=== PATIENT | female | born 1945 | race Caucasian/White ===

== ENCOUNTER 2020-05-19 10:35 | Outpatient (REF) | payer MEDICARE, SELFPAY ==
--- NOTE | 2020-05-19 10:39 | XR_ITS ---
EXAMINATION: XR SHOULDER, LEFT CLINICAL INFORMATION: Fracture greater tuberosity. Follow-up. COMPARISON: Radiographs left shoulder 04/20/2020, 04/13/2020,, 04/07/2020. TECHNIQUE: Left shoulder is imaged in 3 views. FINDINGS: The orthopedic screws are intact. Posttraumatic changes and bony fragments are stable from prior exams. There is no interval new fracture or destructive process. No change in alignment. The acromioclavicular alignment is normal. XR/XR shoulder LT min 2V IMPRESSION: Posttraumatic and postsurgical changes similar to prior exam 04/20/2020. No change in alignment. Hardware intact.
== END 2020-05-19 10:36 | disposition home or self-care (01) ==
LOC: HO.XRAY 10:35
PROVIDERS: PCP Internal Medicine; Referring Provider Internal Medicine; Visit Provider Orthopaedic Surgery
DX: S42.252A Displaced fracture of greater tuberosity of left humerus, initial encounter for closed fracture (principal); S44.32XA Injury of axillary nerve, left arm, initial encounter
CPT/HCPCS: 73030; 99212

== ENCOUNTER 2020-06-07 09:55 | Outpatient (REF) | payer MEDICARE, SELFPAY ==
--- NOTE | 2020-06-07 10:00 | EMG_ITS ---
HISTORY OF PRESENT ILLNESS: This is a 74-year-old woman who fell around April 01, landing on her left shoulder with a fracture of the left shoulder and was operated on April 02. She is now unable to abduct her left shoulder and was referred here for evaluation of any possible nerve injury. She is currently in physical therapy. No medications. PHYSICAL EXAMINATION: On examination, she has weakness of shoulder abduction beyond 10 degrees, but no obvious atrophy. Her supra and infraspinatus appear to be intact. Biceps, triceps, and distal strength is normal. 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 NERVE CONDUCTION EMG STUDY: Normal nerve conduction study of the left upper extremity with no evidence of carpal tunnel syndrome or peripheral nerve entrapment. EMG of the left C5-T1 innervated muscles shows mild active denervation in the deltoid and evidence of reinnervation consistent with a recent injury to the left axillary nerve with evidence of significant reinnervation. MD LINDA Pantoja/EMILE / [id number]
== END 2020-06-07 09:56 | disposition home or self-care (01) ==
LOC: HO.NEURO 09:55
PROVIDERS: PCP Internal Medicine; Visit Provider Orthopaedic Surgery
DX: S44.30XA Injury of axillary nerve, unspecified arm, initial encounter (principal); M79.602 Pain in left arm; R20.0 Anesthesia of skin
CPT/HCPCS: 95860; 95886; 95910

== ENCOUNTER → 2020-06-12 08:49 | Outpatient (BNVA) | payer MEDICARE, SELFPAY | PROVIDERS: Visit Provider Orthopaedic Surgery | DX: S44.3 Injury of axillary nerve (principal); S42.251D Displaced fracture of greater tuberosity of right humerus, subsequent encounter for fracture with routine healing | CPT/HCPCS: 99202 ==

== ENCOUNTER 2020-07-10 10:44 | Outpatient (REF) | payer MEDICARE, SELFPAY ==
--- NOTE | 2020-07-10 11:35 | XR_ITS ---
EXAMINATION: XR SHOULDER, LEFT CLINICAL INFORMATION: Shoulder pain COMPARISON: 05/19/2020 TECHNIQUE: Two views of the left shoulder. FINDINGS: Orthopedic screws are intact with similar positioning. Posttraumatic changes and bony fragments are similar in appearance as compared to previous. No new acute fractures are seen. Normal alignment of the humeral head with the glenoid. AC joint is intact. XR/XR shoulder LT min 2V IMPRESSION: Similar appearance of posttraumatic/postsurgical changes. No new acute findings.
== END 2020-07-10 10:45 | disposition home or self-care (01) ==
LOC: HO.HOSX 10:44
PROVIDERS: Visit Provider Orthopaedic Surgery
DX: S42.253A Displaced fracture of greater tuberosity of unspecified humerus, initial encounter for closed fracture (principal); S44.30XA Injury of axillary nerve, unspecified arm, initial encounter
CPT/HCPCS: 73030; 99212

== ENCOUNTER → 2020-09-28 12:33 | Outpatient (BNVA) | payer MEDICARE, SELFPAY | PROVIDERS: Visit Provider Orthopaedic Surgery | DX: S44.30XA Injury of axillary nerve, unspecified arm, initial encounter (principal); S42.253A Displaced fracture of greater tuberosity of unspecified humerus, initial encounter for closed fracture | CPT/HCPCS: 99212 ==

== ENCOUNTER 2020-11-29 12:16 | Outpatient (REF) | payer MEDICARE, SELFPAY ==
[2020-11-29 13:57] LABS: MANUAL DIFF FLAG NO
[2020-11-29 14:07] LABS: Basophils Percent Auto 0.8 % (0-2); Eosinophils Absolute Auto 0.4 X10*3/uL (0.0-0.4); Eosinophils Percent Auto 7.4 % (0-4); Hematocrit 42.9 % (37-47); Hemoglobin 13.4 g/dl (12.0-16.0); Imm Gran Abs Auto 0.02 X10*3/uL (0.00-0.03); Imm Gran Pct Auto 0.4 % (0.0-0.4); Lymphocytes Absolute Auto 1.7 X10*3/uL (1.2-4.9); Mean Corpuscular HGB Conc 31.2 g/dl (31.0-35.0); Mean Corpuscular Hemoglobin 30.3 pg (27.0-33.0); Mean Corpuscular Volume 97.1 fL (80-98); Mean Platelet Volume 9.7 fL (9.4-12.3); Monocytes Absolute Auto 0.7 X10*3/uL (0.1-1.2); Monocytes Percent Auto 13.6 % (2-11); Neutrophils Absolute Auto 2.1 X10*3/uL (2.0-8.3); Neutrophils Percent Auto 43.8 % (45-73); Platelet Count 274 X10*3/uL (160-400); Red Blood Count 4.42 X10*6/uL (4.20-5.50); White Blood Count 4.9 X10*3/uL (4.8-10.8)
[2020-11-29 14:25] LABS: Alanine Aminotransferase 30 U/L (0-31); Albumin Level 4.5 g/dL (3.5-5.0); Alkaline Phosphatase 82 U/L (39-117); Anion Gap 13 (12-20); Aspartate Amino Transferase 33 U/L (5-31); Bilirubin Total 0.6 mg/dL (0.0-1.0); Blood Urea Nitrogen 20 mg/dL (9-16); Calcium 9.7 mg/dL (8.4-10.2); Carbon Dioxide 28 mmol/L (22-29); Chloride 102 mmol/L (96-108); Estimated Glomerular Filt Rate > 60; Glucose Random 99 mg/dL (60-115); Potassium 4.3 mmol/L (3.3-5.1); Sodium 139 mmol/L (135-145); Total Protein 7.3 g/dL (6.5-8.0)
[2020-11-29 14:47] LABS: TSH reflex Free T4 1.72 uIU/mL (0.32-4.0)
== END 2020-11-29 12:17 | disposition home or self-care (01) ==
LOC: HO.HMGCLDS 12:16
PROVIDERS: PCP Internal Medicine; Visit Provider Internal Medicine
DX: R10.13 Epigastric pain (principal); F41.1 Generalized anxiety disorder; J45.909 Unspecified asthma, uncomplicated; I10 Essential (primary) hypertension
CPT/HCPCS: 36415; 80053; 84443; 85025

== ENCOUNTER 2020-11-30 10:20 | Outpatient (REF) | payer MEDICARE, SELFPAY ==
--- NOTE | 2020-11-30 10:22 | EMG_ITS ---
Left median and ulnar motor and sensory studies were performed. Left radial sensory study was performed. Median and lateral antecubital brachial studies were performed and needle examination was performed on paraspinal and some limb muscles. IMPRESSION: 1. Chronic left axillary neuropathy. 2. Left long thoracic neuropathy. 3. Mild left median neuropathy across the carpal tunnel. 4. Mild left ulnar neuropathy across the cubital tunnel. 5. No evidence of cervical radiculopathy or plexopathy. MD CHARLY Estrada/EMILE / [id number]
== END 2020-11-30 10:21 | disposition home or self-care (01) ==
LOC: HO.NEURO 10:20
PROVIDERS: PCP Internal Medicine; Visit Provider Orthopaedic Surgery
DX: S44.32XA Injury of axillary nerve, left arm, initial encounter (principal); M79.602 Pain in left arm; X58.XXXA Exposure to other specified factors, initial encounter; Y93.9 Activity, unspecified; Y92.9 Unspecified place or not applicable; Y99.9 Unspecified external cause status
CPT/HCPCS: 95886; 95910

== ENCOUNTER 2020-12-07 12:22 | Outpatient (REF) | payer MEDICARE, SELFPAY ==
--- NOTE | ~2020-12-07 | XR_ITS ---
EXAMINATION: XR SHOULDER, LEFT CLINICAL INFORMATION: Left shoulder pain. COMPARISON: Left shoulder 07/10/2020 TECHNIQUE: AP external rotation, Grashey, scapular Y, and axillary views of the left shoulder. FINDINGS: There are 2 orthopedic screws in the left humeral head with posttraumatic/postsurgical changes lateral humeral head. The greater tuberosity is displaced superiorly. There are small bony fragments seen lateral to the humeral head. The soft tissues are normal. The AC joint is maintained intact with mild degenerative changes. XR/XR shoulder LT min 2V IMPRESSION: Stable posttraumatic/postsurgical changes left humeral head with 2 orthopedic screws within the humeral head. The greater tuberosity is displaced superiorly on axillary view. No major change compared to 07/10/2020.
== END 2020-12-07 12:23 | disposition home or self-care (01) ==
LOC: HO.HOSX 12:22
PROVIDERS: Visit Provider Orthopaedic Surgery
DX: S44.3 Injury of axillary nerve (principal); S42.252D Displaced fracture of greater tuberosity of left humerus, subsequent encounter for fracture with routine healing
CPT/HCPCS: 73030; 99212

== ENCOUNTER 2021-01-22 13:00 | Outpatient (RCR) | payer MEDICARE, SELFPAY ==
--- NOTE | 2020-06-09 15:04 | MHC.PT.PR ---
[facility] [place] Office [place] Office [place] Office [address] Liya Morfin [address] [phone] F: [phone] F: [phone] F: [phone] F: [phone] Physical Therapy Progress Note Diagnosis: Displaced fracture of greater tuberosity of unspecified humerus encounter for closed fracture. Displaced fracture of greater tuberosity of unspecified humerus initial encounter. Date of script 05/23/[address] Delgado. (No further instructions/restrictions/directions noted on script this date.) Date of Surgery: 04/02/2020 Date of Evaluation: 06/02/20 Treatments to Date: 3 Cancellations to Date: 0 No Shows to Date: 0 Subjective: Nerve conduction test was done 06/07 and she believes it showed nerve damage. Pain Score: 4 Pain Location: L shoulder Objective Measures: 10 weeks post-op. AA shoulder flexion supine: 94 AA shoulder ER: 8 Assessment: She has been performing HEP everyday, which is seen with improved FE AAROM. Increased tenderness L infraspinatus and deltoid. NOted improved postural awareness with less 'sling' position in resting and neutral rotation. She has a follow-up with Dr. Delgado Friday morning. PT Plan: Continue with PT Frequency and Duration: The patient will be seen 2x/week for 5 more weeks Treatment Plan: Therapeutic Exercise Dynamic Therapeutic Activities Neuromuscular Re-ed Manual Therapies Home Exercise Program Patient Education Hot or Cold Pack Reviewed/ Agreed with Student Documentation: N/A Therapist: Thank you once again for your referral.
--- NOTE | 2020-07-03 14:40 | MHC.PT.PR ---
[facility] [place] Office [place] Office [place] Office [address] Liya Morfin [address] [phone] F: [phone] F: [phone] F: [phone] F: [phone] Physical Therapy Progress Note Diagnosis: Displaced fracture of greater tuberosity of unspecified humerus encounter for closed fracture. Date of Surgery: 04/02/2020 Date of Evaluation: 06/02/20 Treatments to Date: 9 Cancellations to Date: 0 No Shows to Date: 0 Subjective: Still having lots of pain and it seems to crack/ click with certain movements. It's been hard to get comfortable and this pain does not change (deltoid and GH joint) Pain Score: 6 Pain Location: L shoulder Objective Measures: PROM: flexion 108, ER 18, Abduction 96, L UE Resisted tests: flexion/ER/Abd 2-/5, IR 2+/5 Assessment: She continues to have poor tolerance for AA/PROM today (second session in a row with increased pain and poor tolerance). Her PROM has plateaued and her PROM flexion is less than 3 sessions prior. Pt also reports more anxiety regarding clicking/pain in her shoulder. We discussed HEP and not pushing into pain and only performing ROM to tolerance at this time. Her ER strength is poor and she is unable to move through the motion actively. Initiated gentle manual resistance to progress ER/flexion AROM. We will continue with PT 2x/week for 4 more weeks to progress A/AA/PROM and eventually initiate isotonic strengthening. Will call Dr. Delgado regarding patients increased pain and poor AROM progression; pt will also f/u. PT Plan: Continue with PT Frequency and Duration: The patient will be seen 2x/week for 4 more weeks Treatment Plan: Therapeutic Exercise Neuromuscular Re-ed Manual Therapies Home Exercise Program Patient Education Electrical Stimulation Hot or Cold Pack Reviewed/ Agreed with Student Documentation: N/A Therapist: Thank you once again for your referral.
--- NOTE | 2020-09-08 15:18 | MHC.PT.OD ---
[facility] [place] Office [place] Office [place] Office [address] Liya Morfin [address] [phone] F: [phone] F: [phone] F: [phone] F: [phone] Physical Therapy Daily Note Diagnosis: Displaced fracture of greater tuberosity of unspecified humerus encounter for closed fracture. Date of Surgery: 04/02/2020 Date of Evaluation: 06/02/20 Date of Treatment: 09/08/20 Treatments to Date: 20 Cancellations to Date: 1 No Shows to Date: 0 Precautions/ Contraindications:Greater Tuberosity humeral fx ORIF c some axillary nerve damage Subjective: This morning I started to feel something funny in my shoulder. It cracks. Pain Score and Location: 5 L shoulder Objective Flowsheet: Tests & Measures PROM R SHoulder: Flexion (145), ABD (115), ER (45). Standing active flexion 54, active ER lacks 5 degrees at 0* abd, active ER 35 at 20*abd, abd 45. Supine flexion 140 Resisted tests: IR 4/5, Flexion/ABD 3-/5 and ER 2-/5 Exercises stepper with UE/LE, seat 14 L1 x 8min 2x10: AA flexion in sitting c hands clasped - Active flexion in supine c HOB elevated to 30* x 10R -Active ER at 20*abd 3x10 -standing L UE ball circles PROM: flex, ER, and ABD to tolerance c pt in supine STM to lats, subscapularis and biceps in sidelying Modalities moreno valley tower: IFC to L shoulder (avoiding placement at posterior mid triceps due to decreased sensation there). Intensity increased to 13.0 Assessment: She demonstrates improved active external rotation but only when her shoulder is abducted >20*. When her arm is in neutral abduction however, she is unable to externally rotate beyond neutral. Assessed for 'clicking/cracking' that she described had started this morning. Was able to palpate something rolling with forward elevation but not consistently; question whether there is bicep tendon rolling out of bicipital groove and/or a pin or it could be some other source. It is not painful per the patient but 'makes me jump. Her ROM is the same and she continues to have limitations in strength. She has a f/u with Dr. Delgado to discuss further plan (TSA verse conservative management.) PT Plan: A/AA/PROM as tolerated all directions, isometircs Short Term Goals: 1. Pt will demonstrate AAROM/AROM L shoulder 110 degrees. 2. Pt will demonstrate AAROM/AROM L shoulder 140 degrees. 3. Pt will wean from use of sling when cleared by Dr. Delgado for use of ADLS/IADLs. 4. Strength L shoulder 3/5. Residential Goals: 1. Pt will demonstrate AROM L shoulder to 140 degrees (Await order from Dr. Delgado with clearance on ROM. 2. Pt will demonstrate good safety/insight with lifting/use of L shoulder. 3. Pt will demonstrate gross strength L shoulder 4/5. Electronically signed by: Iman Naik DPT
--- NOTE | 2021-01-22 14:23 | MHC.PT.DC ---
[facility] [place] Office [place] Office [place] Office [address] Liya Morfin [address] [phone] F: [phone] F: [phone] F: [phone] F: [phone] Physical Therapy Discharge Report Diagnosis: Displaced fracture of greater tuberosity of unspecified humerus encounter for closed fracture. Date of Surgery: 04/02/2020 Date of Evaluation: 06/02/20 Date of Discharge: 01/22/21 Treatments to Date: 32 Cancellations to Date: 1 No Shows to Date: 0 Discharge Status: Independent with HEP Recommend MD Follow-up Discharge Summary: Pt demonstrates good scapular activation without any evidence of winging. She has made gains in regards to supine AROM with flexion and ER, however there has been no change in AROM against gravity. Mild improvement in eccentric control of returning from ER position in supine. She has plateaued and we reviewed HEP for pt to continue with at home. She hopes she will be eligible for a TSA in the future. D/c at this time secondary to plateau of progress and I with HEP Electronically signed by: Iman Naik DPT Please sign and return to therapist. Thank you for your referral.
== END 2021-01-22 14:23 | disposition home or self-care (01) ==
LOC: HO.PTCHIC 13:00
PROVIDERS: PCP Internal Medicine; Visit Provider Orthopaedic Surgery
DX: S42.253A Displaced fracture of greater tuberosity of unspecified humerus, initial encounter for closed fracture (principal)
CPT/HCPCS: 97014; 97110; 97112; 97140; 97161; 97162; 97535

== ENCOUNTER → 2021-03-12 12:45 | Outpatient (BNVA) | payer MEDICARE, SELFPAY | PROVIDERS: Visit Provider Orthopaedic Surgery | DX: S44.30XA Injury of axillary nerve, unspecified arm, initial encounter (principal); S42.253A Displaced fracture of greater tuberosity of unspecified humerus, initial encounter for closed fracture; Z96.9 Presence of functional implant, unspecified | CPT/HCPCS: 99212 ==

== ENCOUNTER 2021-03-28 08:29 | Day surgery (SDC) | payer MEDICARE, SELFPAY ==
--- NOTE | 2021-03-27 12:22 | P.CONAN_ITS ---
Documented by User: Juanis Norris NP 03/27/21 12:23 HPI - Anesthesia Eval Consult details Narrative: 75yo F for Left Removal of Orthopedic Shoulder Hardware PMFSH Active Problems Active Problems: All Active Problems (Updated 03/12/21 @ 13:03 by Maciel Delgado MD) Retained orthopedic hardware (Acute) Menopause (Acute) Breast screening (Acute) Multiple allergies (Acute) Difficulty sleeping (Acute) HTN (hypertension) (Acute) Anxiety, generalized (Acute) Encounter for general adult medical examination with abnormal findings (Acute) Pain management (Acute) Dyspepsia (Acute) Asthma (Acute) Axillary nerve injury (Acute) Greater tuberosity of humerus fracture (Acute) Past Medical History Medical History Anxiety Asthma Axillary nerve injury Borderline high cholesterol Dyspepsia Eczema Greater tuberosity of humerus fracture HTN (hypertension) Insomnia Neuropathy Osteopenia Pain management Prediabetes Family History Family History Mother Dementia DDD (degenerative disc disease) Father No problems noted. Brother No problems noted. Sister No problems noted. Sister No problems noted. Sister No problems noted. Surgical History Surgical History H/O partial thyroidectomy History of back surgery History of bunionectomy of both great toes History of shoulder surgery History of tonsillectomy Social History Social History Housing: House Patient Tobacco Use Status: Former Tobacco user Quit Date: Tobacco use type: Cigarette Years Smoked: 25 Use of substances other than those prescribed or required for medical reasons: Yes Substance Use Frequency: Occasionally Are you DNR?: No Advance Directives: No Advance Directives Information Provided: No Current occupational status: retired 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 Meds Allergies Allergy/AdvReac Type Severity Reaction Status Date / Time No Known Allergies Allergy Mild N/A Verified 03/28/21 08:55 hay fever Allergy Unknown Unknown Uncoded 03/12/21 12:52 multiple environmental Allergy Unknown Unknown Uncoded 03/12/21 12:52 allergi Home Medications Medication Instructions Recorded Confirmed Last Taken Type albuterol sulfate 90 mcg/actuation 2 puff INHALATION Q6H PRN 05/18/20 02/28/21 Unknown History aerosol inhaler (ProAir HFA) cetirizine 10 mg capsule (Zyrtec) mg PO 05/18/20 02/28/21 Unknown History fluticasone propionate 110 1 puff INHALATION BID 05/18/20 02/28/21 03/28/21 07:30 History mcg/actuation HFA aerosol inhaler (Flovent HFA) multivitamin 1 tab PO DAILY 03/28/21 03/28/21 Unknown History Exam Exam Date and Time: March 27, 2021 1222 Pertinent Lab Results Pertinent Lab Results: Laboratory Tests 11/29/20 11/29/20 12:25 12:25 WBC 4.9 Hgb 13.4 Hct 42.9 Plt Count 274 Sodium 139 Potassium 4.3 Chloride 102 Carbon Dioxide 28 BUN 20 H Creatinine 0.82 Assessment and Plan Assessment Anesthesia Assessment: Chart Reviewed Documented by User: Lynnette Ko MD 03/28/21 11:12 COUNT INCLUDES THE [facility] Past Medical History Medical History Anxiety Asthma Axillary nerve injury Borderline high cholesterol Dyspepsia Eczema Greater tuberosity of humerus fracture HTN (hypertension) Insomnia Neuropathy Osteopenia Pain management Prediabetes Family History Family History Mother Dementia DDD (degenerative disc disease) Father No problems noted. Brother No problems noted. Sister No problems noted. Sister No problems noted. Sister No problems noted. Family history of problems with anesthesia: No Surgical History Surgical History H/O partial thyroidectomy History of back surgery History of bunionectomy of both great toes History of shoulder surgery History of tonsillectomy History of Problems with Anesthesia: No Social History Social History Housing: House Patient Tobacco Use Status: Former Tobacco user Quit Date: Tobacco use type: Cigarette Years Smoked: 25 Use of substances other than those prescribed or required for medical reasons: Yes Substance Use Frequency: Occasionally Are you DNR?: No Advance Directives: No Advance Directives Information Provided: No Current occupational status: retired 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 Meds Allergies Allergy/AdvReac Type Severity Reaction Status Date / Time No Known Allergies Allergy Mild N/A Verified 03/28/21 08:55 hay fever Allergy Unknown Unknown Uncoded 03/12/21 12:52 multiple environmental Allergy Unknown Unknown Uncoded 03/12/21 12:52 allergi Home Medications Medication Instructions Recorded Confirmed Last Taken Type albuterol sulfate 90 mcg/actuation 2 puff INHALATION Q6H PRN 05/18/20 02/28/21 Unknown History aerosol inhaler (ProAir HFA) cetirizine 10 mg capsule (Zyrtec) mg PO 05/18/20 02/28/21 Unknown History fluticasone propionate 110 1 puff INHALATION BID 05/18/20 02/28/21 03/28/21 07:30 History mcg/actuation HFA aerosol inhaler (Flovent HFA) multivitamin 1 tab PO DAILY 03/28/21 03/28/21 Unknown History Exam Airway Mallampati Class: II TM Dist: >3cm Neck ROM: Full Assessment and Plan Assessment Anesthesia Assessment: Anesthesia Plan Discussed Final Anesthetic Review Family History of Problems with Anesthesia: No History of Problems with Anesthesia: No NPO: Yes ASA Class: II Final Preanesthetic Review: No Changes in Pt Med Stat, Meds/Allgs Chart Reviewed, Consent Obtained/Reviewed and Anes Risks/Benef Reviewed Patient Risk: Low Procedure Risk: Low Assessment/Block/Sedation in SS: Assess/Block/Sedation-SS Anesthetic Plan Anesthetic Plan: GA Disposition: Standard PACU
[2021-03-28] VITALS (7 sets, daily range): BP systolic 116–147; BP diastolic 80–90; PULSE 64–77; RESP 16; TEMP 36.1; O2SAT 95–99; BMI 30.7
--- NOTE | ~2021-03-28 | FL_ITS ---
EXAMINATION: XR FLUOROSCOPY WITH IMAGES CLINICAL INFORMATION: Removal hardware left upper arm. COMPARISON: Radiographs left shoulder 12/07/2020, CT left shoulder 04/02/2020 TECHNIQUE: Fluoroscopy performed by Dr. Maciel Delgado. Fluoroscopy time: 0.2 minutes DAP: 0.0153 mGycm2 Images: 2 FINDINGS: There is old posttraumatic changes proximal humerus with 2 orthopedic screws. The final spot view shows removal of the screws with no retained metallic fragments. FL/FL guidance in OR IMPRESSION: Status post removal proximal left humeral orthopedic screws. No retained metallic fragments.
[2021-03-28] MEDS: Lactated Ringers 1,000 ML 100 ML IVCONT (09:27)
--- NOTE | 2021-03-28 12:33 | PM.OP ---
Brief Operative Note Date of Service: 03/28/21 Pre-op diagnosis: left shoulder retained orthopaedic hardware Procedure: Removal of hardware left shoulder Surgeon: Maciel Delgado MD Anesthesia: GETA and local Was an Customer Services Coordinator used for this Procedure?: Yes Customer Services Coordinator: Elham Mckeon Estimated blood loss (mL): 20 IV fluids (mL): 300 Pathology: none sent Condition: stable Disposition: PACU
--- NOTE | 2021-03-28 12:35 | W.PM.OPN ---
Operative Note Operative Note Date of Service: 03/28/21 Narrative: Procedure if detail. Bud was brought to the room and placed in the beach chair position. All bony prominences were well padded and she was prepped and draped in standard sterile fashion. A time out was called to identify proper site, proper procedure and proper patient. IV antibiotics were administered. I began by using flouroscopy to identify the 2 screws. I then hernandez a 2 cm incision over the prior incision about 1 cm distal to the acromion. Blunt dissection was taken down to the screws and one was removed with a screwdriver and the other was loose in soft tissue and loose bone of the greater tuberosity. This screw was gently removed with dissection of the surrounding fibrous tissue and removed. There was no evidence of nerve entrapment. I then irrigated, obtained my final radiograph and closed with Vicryl and cate. The patient was placed in a sterile dressing, extubated and brought to the recovery room in stable condition. There were no known complications.
== END 2021-03-28 13:45 | disposition home or self-care (01) ==
PROVIDERS: PCP Internal Medicine; Visit Provider Orthopaedic Surgery
PROC: (CPT 20680; principal; 2021-03-28 10:40)
DX: Z47.2 Encounter for removal of internal fixation device (principal); S44.3 Injury of axillary nerve; S42.253D Displaced fracture of greater tuberosity of unspecified humerus, subsequent encounter for fracture with routine healing; X58.XXXD Exposure to other specified factors, subsequent encounter
CPT/HCPCS: 20680; J0690; J1100; J1170; J2405; J3010

== ENCOUNTER → 2021-04-05 12:11 | Outpatient (BNVA) | payer MEDICARE, SELFPAY | PROVIDERS: PCP Internal Medicine; Visit Provider Orthopaedic Surgery | DX: S44.3 Injury of axillary nerve (principal); S42.252D Displaced fracture of greater tuberosity of left humerus, subsequent encounter for fracture with routine healing; Z96.9 Presence of functional implant, unspecified | CPT/HCPCS: 99212 ==

== ENCOUNTER → 2021-04-12 12:37 | Outpatient (BNVA) | payer MEDICARE, SELFPAY | PROVIDERS: PCP Internal Medicine; Visit Provider Orthopaedic Surgery ==

== ENCOUNTER 2021-04-20 11:50 | Outpatient (REF) | payer MEDICARE, SELFPAY ==
--- NOTE | ~2021-04-20 | MM_ITS ---
EXAMINATION: BONE DENSITOMETRY CLINICAL INDICATION: History of osteopenia. Other specified disorders of bone density and structure. Postmenopausal. COMPARISON: Previous BD dated 03/30/2019 and baseline BD dated 2007. TECHNIQUE: Using a [employer]leep DXA system (software version: 14.10) manufactured by [employer], dual-energy x-ray absorptiometry was performed of the lumbar spine and left hip. The images are of good technical quality. Summary results are attached. FINDINGS: AP SPINE L1-L3 (excluding L4): The data of L1-L4 has been changed to exclude the L4 vertebral body, because degenerative sclerosis at this level may cause overestimation of lumbar spine density. Current: BMD 1.147 g/cm2, Z-score 0.9, T-score -0.2, normal, 1.4% decrease from previous, 8.2% increase from baseline (<5% change is not significant). Prior: BMD 1.163 g/cm2. Baseline: BMD 1.060 g/cm2. LEFT FEMUR, NECK: Current: BMD 0.914 g/cm2, Z-score 0.6, T-score -0.9, normal. Prior: BMD 0.896 g/cm2. Baseline: BMD 0.855 g/cm2. LEFT FEMUR, TOTAL: Current: BMD 0.882 g/cm2, Z-score 0.3, T-score -1.0, normal, 0.2% decrease from previous, 3.3% increase from baseline (<5% change is not significant). Prior: BMD 0.884 g/cm2. Baseline: BMD 0.854 g/cm2. IDENTIFIED RISK FACTORS: History of fracture, (adult). Low calcium intake. Menopause. Family history, (parent hip fracture). HISTORY OF FRACTURE: Humerus. MEDICATIONS: Vitamin D. MM/XR DEXA axial skeleton IMPRESSION: 1. DIAGNOSIS: Normal bone density based on the lowest T-score value of -1.0 in the total femur applying World Health Organization criteria. 2. 10-YEAR FRACTURE RISK PREDICTION, FRAX: Major osteoporotic fracture (clinical spine, forearm, hip or shoulder) 22.0%. Hip fracture 8.7%. 3. Treatment Recommendations: NOF guidelines recommend consideration for treatment in postmenopausal women and men age 50 and older presenting with the following: -A hip or vertebral (clinical or morphometric) fracture. -T-score less than or equal to -2.5 at the femoral neck or spine after appropriate evaluation to exclude secondary causes. -Low bone mass at the hip or spine and a 10-year fracture probability by FRAX of greater than or equal to 3% for hip fracture or greater than or equal to 20% for major osteoporotic fracture based on the [place] adapted WHO algorithm. 4. Other Recommendations: All treatment decisions require clinical judgment and consideration of individual patient factors, including patient preferences, comorbidities, previous drug use, risk factors not captured in the FRAX model (e.g. frailty, falls, vitamin D deficiency, increased bone turnover, interval significant decline in bone density) and possible under or overestimation of fracture risk by FRAX. FUTURE SCAN RECOMMENDATION: People with diagnosed cases of osteoporosis or at high risk for fracture should have regular bone mineral density tests. For patients eligible for Medicare, routine testing is allowed once every 2 years. The testing frequency can be increased to one year for patients who have rapidly progressing disease, those who are receiving or discontinuing medical therapy to restore bone mass, or have additional risk factors.
--- NOTE | ~2021-04-20 | MM_ITS ---
EXAMINATION: MM SCREENING DIGITAL BREAST TOMOSYNTHESIS, BILATERAL CLINICAL INFORMATION: Screening. Asymptomatic. The lifetime risk of breast cancer based on the Tyrer-Cuzick Model is 4%. COMPARISON: Mammography: 03/30/2019, 03/25/2017 03/21/2015 TECHNIQUE: Digital breast tomosynthesis is performed in both the craniocaudal and mediolateral oblique views along with computer-aided detection (CAD). Synthesized 2D images are generated from the tomosynthesis. FINDINGS: There are scattered areas of fibroglandular density (ACR BI-RADS breast composition Category b). There are no significant masses, abnormal calcifications, or other abnormalities. Regional parenchymal asymmetry left breast mid upper outer quadrant is stable from prior studies. Neither breast shows developing density. There are no significant changes. MM/MM tomosynthesis screening BI IMPRESSION: No mammographic evidence of malignancy. ASSESSMENT: BI-RADS 2: Benign RECOMMENDATION: Routine annual mammography screening. This patient's information was entered into a reminder system with a target due date for their next mammogram.
== END 2021-04-20 11:51 | disposition home or self-care (01) ==
LOC: HO.MAMMO 11:50
PROVIDERS: Visit Provider Internal Medicine
DX: Z12.31 Encounter for screening mammogram for malignant neoplasm of breast (principal); Z13.820 Encounter for screening for osteoporosis; Z78.0 Asymptomatic menopausal state; Z87.81 Personal history of (healed) traumatic fracture; Z79.899 Other long term (current) drug therapy
CPT/HCPCS: 77063; 77067; 77080

== ENCOUNTER → 2021-05-17 12:14 | Outpatient (BNVA) | payer MEDICARE, SELFPAY | PROVIDERS: PCP Internal Medicine; Visit Provider Orthopaedic Surgery | DX: S42.253D Displaced fracture of greater tuberosity of unspecified humerus, subsequent encounter for fracture with routine healing (principal); S44.3 Injury of axillary nerve; M12.812 Other specific arthropathies, not elsewhere classified, left shoulder; Z96.9 Presence of functional implant, unspecified | CPT/HCPCS: 99212 ==

== ENCOUNTER 2021-05-23 13:13 | Outpatient (REF) | payer MEDICARE, SELFPAY ==
--- NOTE | ~2021-05-23 | CT_ITS ---
EXAMINATION: CT LEFT SHOULDER WITHOUT CONTRAST CLINICAL INFORMATION: Left shoulder arthropathy. COMPARISON: Multiple prior examinations including x-ray 12/07/[address] shoulder 03/2020. TECHNIQUE: CT scan of the left shoulder was performed utilizing a preop planning Tournier protocol with reconstruction imaging performed at the acquisition workstation. DLP: 251 mGy-cm FINDINGS: Posttraumatic change and postoperative change related to prior orthopedic fixation of previously noted greater tuberosity fracture. Osseous fragments remaining present along the posterior and anterior superior aspect of the joint/humeral head. The largest fragment measures 3 cm transverse, 3.5 cm craniocaudal and 0.6 cm AP. There is a bone defect along the lateral aspect of the humeral head greater tuberosity region related to donor site for greater tuberosity fracture. Ghost tracks present related to prior hardware placement and subsequent removal. Small marginal osteophytes along the inferior aspect of humeral head. The humeral head is subluxed cephalad with a narrowed subacromial space measuring 2.6 mm. There is mild atrophy of the supraspinatus muscle. Glenoid vault depth is estimated at 1.7 cm. Glenoid version 1.6 degrees. No glenoid erosion. The humeral head does not appear posteriorly subluxed. There is mild arthrosis of the acromioclavicular joint. CT/CT shoulder LT wo con IMPRESSION: CT preoperative Tournier protocol performed. Postop changes related to the previously noted displaced greater tuberosity fracture with fracture fragments unattached anterior-superior and posterior-superior to the humeral head. Orthopedic hardware has been removed. Arthrosis of the glenohumeral joint with small marginal osteophytes noted. Superior subluxation of the humeral head raises the question of rotator cuff tear/deficiency superiorly. There is at least mild atrophy of the supraspinatus muscle. AC arthrosis.
== END 2021-05-23 13:14 | disposition home or self-care (01) ==
LOC: HO.CT 13:13
PROVIDERS: PCP Internal Medicine; Visit Provider Orthopaedic Surgery
DX: M12.812 Other specific arthropathies, not elsewhere classified, left shoulder (principal)
CPT/HCPCS: 73200

== ENCOUNTER 2021-08-08 10:13 | Outpatient (REF) | payer MEDICARE, SELFPAY ==
--- NOTE | 2021-08-08 10:10 | EMG_ITS ---
This is a 75-year-old woman with a fall with left shoulder fracture, who has trouble abducting the shoulder. She is scheduled for reverse shoulder replacement in the end of August. PHYSICAL EXAMINATION: On examination, she has no atrophy of the deltoid but mild weakness of shoulder abduction and moderate weakness of external rotation of the shoulder. Biceps and triceps are normal. IMPRESSION: Probable ligamentous injury within the shoulder joints, rule out nerve injury. Nerve conduction EMG study: Normal electrodiagnostic study of the left upper extremity with no evidence of nerve entrapment, carpal tunnel syndrome. Normal EMG of the left C5-6 innervated muscles including the left shoulder and infraspinatus muscles which do not show any evidence of neuropathic changes or denervation. MD LINDA Pantoja/EMILE / [id number]
== END 2021-08-08 10:14 | disposition home or self-care (01) ==
LOC: HO.NEURO 10:13
PROVIDERS: Visit Provider Orthopaedic Surgery
DX: S44.3 Injury of axillary nerve (principal)
CPT/HCPCS: 95886; 95910

== ENCOUNTER → 2021-08-15 09:56 | Outpatient (BNVA) | payer MEDICARE, SELFPAY | PROVIDERS: PCP Internal Medicine; Visit Provider Orthopaedic Surgery | DX: Z01.812 Encounter for preprocedural laboratory examination (principal); Z01.810 Encounter for preprocedural cardiovascular examination ==

== ENCOUNTER 2021-09-19 10:40 | Outpatient (REF) | payer MEDICARE, SELFPAY ==
--- NOTE | 2021-09-19 10:50 | ECG_ITS ---
Test Reason : Z01.810 Blood Pressure : / mmHG Vent. Rate : 063 BPM Atrial Rate : 063 BPM P-R Int : 172 ms QRS Dur : 078 ms QT Int : 392 ms P-R-T Axes : 066 -30 004 degrees QTc Int : 401 ms Normal sinus rhythm Left axis deviation Nonspecific ST abnormality Abnormal ECG When compared with ECG of 18-SEP-2007 12:43, No significant changes seen Referred By: Maciel Delgado Electronically Signed By:JA BLANCO
[2021-09-19 11:15] LABS: MANUAL DIFF FLAG NO
[2021-09-19 11:42] LABS: Basophils Absolute Auto 0.1 X10*3/uL (0.0-0.2); Basophils Percent Auto 0.8 % (0-2); Eosinophils Absolute Auto 0.2 X10*3/uL (0.0-0.4); Hematocrit 41.3 % (37.0-47.0); Hemoglobin 13.2 g/dl (12.0-16.0); Imm Gran Abs Auto 0.02 X10*3/uL (0.00-0.03); Imm Gran Pct Auto 0.3 % (0.0-0.4); Lymphocytes Absolute Auto 1.2 X10*3/uL (1.2-4.9); Mean Corpuscular Hemoglobin 31.3 pg (27.0-33.0); Mean Corpuscular Volume 97.9 fL (80.0-98.0); Mean Platelet Volume 9.1 fL (9.4-12.3); Monocytes Absolute Auto 0.6 X10*3/uL (0.1-1.2); Monocytes Percent Auto 10.3 % (2-11); Neutrophils Absolute Auto 3.9 x10*3/uL (2.0-8.3); Neutrophils Percent Auto 64.6 % (45-73); Platelet Count 256 X10*3/uL (160-400); Red Blood Count 4.22 X10*6/uL (4.20-5.50); Red Cell Distribution Width 13.1 % (11.0-16.0)
[2021-09-19 12:15] LABS: Anion Gap 12 (12-20); Blood Urea Nitrogen 19 mg/dL (9-16); Calcium 9.4 mg/dL (8.4-10.2); Carbon Dioxide 29 mmol/L (22-29); Chloride 103 mmol/L (96-108); Estimated Glomerular Filt Rate > 60; Glucose Random 90 mg/dL (60-115); Potassium 4.8 mmol/L (3.3-5.1); Sodium 139 mmol/L (135-145)
== END 2021-09-19 10:41 | disposition home or self-care (01) ==
LOC: HO.LAB 10:40
PROVIDERS: PCP Internal Medicine; Visit Provider Orthopaedic Surgery
DX: Z01.810 Encounter for preprocedural cardiovascular examination (principal); Z01.812 Encounter for preprocedural laboratory examination
CPT/HCPCS: 36415; 80048; 85025; 93005

== ENCOUNTER → 2021-10-18 10:12 | Outpatient (BNVA) | payer MEDICARE, SELFPAY | PROVIDERS: Visit Provider Physician Assistant | DX: Z01.818 Encounter for other preprocedural examination (principal); M12.812 Other specific arthropathies, not elsewhere classified, left shoulder; S44.3 Injury of axillary nerve; S42.253D Displaced fracture of greater tuberosity of unspecified humerus, subsequent encounter for fracture with routine healing | CPT/HCPCS: 99212 ==

== ENCOUNTER 2021-10-24 08:21 | Inpatient (IN) | payer MEDICARE, SELFPAY ==
[2021-09-19 11:46] VITALS: BP 140/84; PULSE 64; RESP 16; O2SAT 96; BMI 32.5
--- NOTE | 2021-09-19 12:58 | HO.ANESPROP2 ---
Documented by User: Juanis Norris NP 10/19/21 12:15 HPI - Anesthesia Eval Consult details Narrative: 76yo F for Left Shoulder Total Repair PCP cleared s/p L shoulder hardware removal 03/2021 with GA-LMA 5 Skin lesions on left breast with abx treatment by PCP. Not resolved. Update 10/19/21 - skin lesions cleared Hx ETOH, none x 30 days PMFSH Active Problems Active Problems: All Active Problems (Updated 09/19/21 @ 12:31 by Darlene Corbin RN) Encounter for general adult medical examination with abnormal findings (Acute) Anxiety, generalized (Acute) HTN (hypertension) (Acute) Difficulty sleeping (Acute) Multiple allergies (Acute) Breast screening (Acute) Menopause (Acute) Retained orthopedic hardware (Acute) Insect bites (Acute) Rotator cuff arthropathy of left shoulder (Acute) Injury of axillary nerve, left arm, initial encounter (Acute) Asthma, moderate persistent (Acute) Blistered skin (Acute) Cellulitis (Acute) Major depression, recurrent (Acute) Alcoholism (Acute) Pain management (Acute) Dyspepsia (Acute) Asthma (Acute) Axillary nerve injury (Acute) Greater tuberosity of humerus fracture (Acute) Past Medical History Medical History Anxiety Asthma Axillary nerve injury Borderline high cholesterol Dyspepsia Eczema Greater tuberosity of humerus fracture HTN (hypertension) Hx of fracture of humerus Insomnia Neuropathy AVELINO (obstructive sleep apnea) Osteopenia Pain management Prediabetes Family History Family History Mother Dementia DDD (degenerative disc disease) Aortic valve disorder Osteoporosis Myelodysplastic syndrome Father Hypertension Parkinsons Depression Brother Hypertension History of hip replacement History of shoulder replacement Sister Multiple sclerosis H/O removal of cyst Sister Scoliosis H/O removal of cyst Sister Hypertension DDD (degenerative disc disease) Scoliosis Family history of problems with anesthesia: No Surgical History Surgical History H/O partial thyroidectomy History of back surgery History of bunionectomy of both great toes History of tonsillectomy History of Problems with Anesthesia: No Social History Social History Housing: House Are you a primary clinical care leader to a significant other at home: No Do you presently have visiting nurse or other home services: No Patient Tobacco Use Status: Former Tobacco user Quit Date: Tobacco use type: Cigarette Years Smoked: 25 Use of substances other than those prescribed or required for medical reasons: Yes Substance Use Type: Marijuana Substance Use Frequency: Occasionally Currently Displaying Signs/Symptoms of Drug Intoxication Withdrawal: No Have you been hit, kicked, punched, or otherwise hurt by someone within the past year? 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 Narrative Narrative: No recent illness No CP/SOB with walking Meds Allergies Allergy/AdvReac Type Severity Reaction Status Date / Time hay fever Allergy Unknown Unknown Uncoded 10/18/21 10:21 multiple environmental Allergy Unknown Unknown Uncoded 10/18/21 10:21 allergi Home Medications Medication Instructions Recorded Confirmed Last Taken Type albuterol sulfate 90 mcg/actuation 2 puff INHALATION Q6H PRN 05/18/20 10/17/21 Unknown History aerosol inhaler (ProAir HFA) cetirizine 10 mg capsule (Zyrtec) 10 mg PO DAILY 05/18/20 10/17/21 10/24/21 History fluticasone propionate 110 1 puff INHALATION BID PRN 05/18/20 10/17/21 03/28/21 07:30 History mcg/actuation HFA aerosol inhaler (Flovent HFA) multivitamin 1 tab PO DAILY 03/28/21 10/17/21 Unknown History betamethasone dipropionate 0.05 % 1 appl TOPICAL BID PRN 09/19/21 10/17/21 Unknown History topical cream docusate sodium 100 mg capsule 100 mg PO BEDTIME PRN 09/19/21 10/17/21 Unknown History (Colace) famotidine 20 mg tablet 20 mg PO BEDTIME 09/19/21 10/17/21 Unknown History fluticasone propionate 50 1 spray INTRANASAL DAILY 09/19/21 10/17/21 10/24/21 History mcg/actuation nasal spray,suspension (Flonase Allergy Relief) lorazepam 1 mg tablet 1 mg PO BEDTIME 09/19/21 10/17/21 Unknown History magnesium 250 mg tablet 250 mg PO BEDTIME 09/19/21 10/17/21 Unknown History montelukast 10 mg tablet 10 mg PO BEDTIME 09/19/21 10/17/21 Unknown History hydrocortisone 2.5 % topical 1 appl TOPICAL DAILY PRN 10/24/21 10/24/21 Unknown History ointment Exam Exam Date and Time: September 19, 2021 1258 Height,Weight and Vital Signs: Height 5 ft 6 in Weight 91.5 kg Last Vital Signs Pulse 64 09/19/21 11:46 Resp 16 09/19/21 11:46 BP 140/84 H 09/19/21 11:46 Pulse Ox 96 09/19/21 11:46 Pertinent Lab Results Pertinent Lab Results: Laboratory Tests 09/19/21 09/19/21 11:14 11:14 WBC 6.0 Hgb 13.2 Hct 41.3 Plt Count 256 Sodium 139 Potassium 4.8 Chloride 103 Carbon Dioxide 29 BUN 19 H Creatinine 0.89 Narrative Narrative: EKG 08/2021 Vent. Rate : 063 BPM ? ? Atrial Rate : 063 BPM ?? P-R Int : 172 ms? QRS Dur : 078 ms ? ? QT Int : 392 ms ? ? ? P-R-T Axes : 066 -30 004 degrees ?? QTc Int : 401 ms ? Normal sinus rhythm Left axis deviation Nonspecific ST abnormality Abnormal ECG When compared with ECG of 18-SEP-2007 12:43, No significant changes seen Airway Mallampati Class: I TM Dist: >3cm Neck ROM: Full Loose/Missing/Broken Teeth: Yes (Molars missing, crowned molars) Heart: RRR Lungs: CTAB Assessment and Plan Assessment Anesthesia Assessment: Anesthesia Plan Discussed (GA with nerve block) and PAT Visit Final Anesthetic Review Family History of Problems with Anesthesia: No History of Problems with Anesthesia: No Documented by User: Martin Disla MD 10/24/21 17:40 HPI - Anesthesia Eval Consult details Narrative: 76yo F for Left Shoulder Total Repair back pain with radiation to b/l LE known axillary nerve injury restricted flexion and abduction RUE PCP cleared s/p L shoulder hardware removal 03/2021 with GA-LMA 5 Skin lesions on left breast with abx treatment by PCP. Not resolved. Update 10/19/21 - skin lesions cleared Hx ETOH, none x 30 days PMFSH Past Medical History Medical History Anxiety Asthma Axillary nerve injury Borderline high cholesterol Dyspepsia Eczema Greater tuberosity of humerus fracture HTN (hypertension) Hx of fracture of humerus Insomnia Neuropathy AVELINO (obstructive sleep apnea) Osteopenia Pain management Prediabetes Family History Family History Mother Dementia DDD (degenerative disc disease) Aortic valve disorder Osteoporosis Myelodysplastic syndrome Father Hypertension Parkinsons Depression Brother Hypertension History of hip replacement History of shoulder replacement Sister Multiple sclerosis H/O removal of cyst Sister Scoliosis H/O removal of cyst Sister Hypertension DDD (degenerative disc disease) Scoliosis Surgical History Surgical History H/O partial thyroidectomy History of back surgery History of bunionectomy of both great toes History of tonsillectomy Social History Social History Housing: House Are you a primary clinical care leader to a significant other at home: No Do you presently have visiting nurse or other home services: No Patient Tobacco Use Status: Former Tobacco user Quit Date: Tobacco use type: Cigarette Years Smoked: 25 Use of substances other than those prescribed or required for medical reasons: Yes Substance Use Type: Marijuana Substance Use Frequency: Occasionally Currently Displaying Signs/Symptoms of Drug Intoxication Withdrawal: No Have you been hit, kicked, punched, or otherwise hurt by someone within the past year? 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 Meds Allergies Allergy/AdvReac Type Severity Reaction Status Date / Time hay fever Allergy Unknown Unknown Uncoded 10/18/21 10:21 multiple environmental Allergy Unknown Unknown Uncoded 10/18/21 10:21 allergi Home Medications Medication Instructions Recorded Confirmed Last Taken Type albuterol sulfate 90 mcg/actuation 2 puff INHALATION Q6H PRN 05/18/20 10/17/21 Unknown History aerosol inhaler (ProAir HFA) cetirizine 10 mg capsule (Zyrtec) 10 mg PO DAILY 05/18/20 10/17/21 10/24/21 History fluticasone propionate 110 1 puff INHALATION BID PRN 05/18/20 10/17/21 03/28/21 07:30 History mcg/actuation HFA aerosol inhaler (Flovent HFA) multivitamin 1 tab PO DAILY 03/28/21 10/17/21 Unknown History betamethasone dipropionate 0.05 % 1 appl TOPICAL BID PRN 09/19/21 10/17/21 Unknown History topical cream docusate sodium 100 mg capsule 100 mg PO BEDTIME PRN 09/19/21 10/17/21 Unknown History (Colace) famotidine 20 mg tablet 20 mg PO BEDTIME 09/19/21 10/17/21 Unknown History fluticasone propionate 50 1 spray INTRANASAL DAILY 09/19/21 10/17/21 10/24/21 History mcg/actuation nasal spray,suspension (Flonase Allergy Relief) lorazepam 1 mg tablet 1 mg PO BEDTIME 09/19/21 10/17/21 Unknown History magnesium 250 mg tablet 250 mg PO BEDTIME 09/19/21 10/17/21 Unknown History montelukast 10 mg tablet 10 mg PO BEDTIME 09/19/21 10/17/21 Unknown History hydrocortisone 2.5 % topical 1 appl TOPICAL DAILY PRN 10/24/21 10/24/21 Unknown History ointment Assessment and Plan Final Anesthetic Review NPO: Yes ASA Class: III Final Preanesthetic Review: Meds/Allgs Chart Reviewed, Consent Obtained/Reviewed and Anes Risks/Benef Reviewed Patient Risk: High Procedure Risk: Intermediate Anesthetic Plan Anesthetic Plan: GA Disposition: Inp. Admit - Standard Bed
[2021-09-19 16:33] LABS: MRSA Nasal PCR NEGATIVE (Negative); SA Nasal PCR NEGATIVE (Negative)
[2021-10-24] VITALS (21 sets, daily range): BP systolic 119–180; BP diastolic 69–108; PULSE 60–73; RESP 12–22; TEMP 36.1–36.8; O2SAT 93–100
--- NOTE | ~2021-10-24 | XR_ITS ---
EXAMINATION: XR SHOULDER, LEFT CLINICAL INFORMATION: Status post left TSA COMPARISON: None TECHNIQUE: 3 views of the left shoulder. FINDINGS: There is a total left shoulder prosthesis with the prosthetic components in a satisfactory alignment. Immediate postoperative changes visualized. The soft tissues are normal. XR/XR shoulder LT min 2V IMPRESSION: Total left shoulder prosthesis with prosthetic components in satisfactory alignment. Immediate postoperative changes are noted.
--- NOTE | 2021-10-24 07:30 | MHC.SHP ---
Pre-Procedural Eval Section A Date of Service: 10/24/21 The patient is an INPATIENT: No Changes since office visit: Yes Patient answered all questions; No Cold of Flu in the past 2 weeks, No New Medical Problems and No Changes in Medication The History & Physical has been completed within 30 days and I have reviewed it.: Yes Section B Chief Complaint: left shoulder RTSA Allergies: Allergies Allergy/AdvReac Type Severity Reaction Status Date / Time hay fever Allergy Unknown Unknown Uncoded 10/18/21 10:21 multiple environmental Allergy Unknown Unknown Uncoded 10/18/21 10:21 allergi Plan I have reviewed the history and physical and performed a pertinent physical examination on my patient. No changes have occurred unless specified.
[2021-10-24 09:02] LABS: COVID-19 Test Negative (Negative); IDNOW Serial# 16C4AD1C
[2021-10-24] MEDS: Lactated Ringers 1,000 ML 100 ML IVCONT (09:20)
--- NOTE | 2021-10-24 12:16 | PM.OP ---
Brief Operative Note Date of Service: 10/24/21 Pre-op diagnosis: left shouder rtc arthropathy Post-op diagnosis: same Procedure: rTSA left shoulder Implants: Tornier 25/36/3Lflex/+0 centered with + 6 poly Surgeon: Maciel Delgado MD Anesthesia: GETA and local Was an [employer] Specialist used for this Procedure?: Yes [employer] Specialist: Elham Mckeon Estimated blood loss (mL): 200 IV fluids (mL): 1,000 Pathology: other Condition: stable Disposition: PACU
[2021-10-24] MEDS: HYDROmorphone HCl 0.5 MG/0.5 ML SYRINGE 0.25 MG IVPUSH ×3 (13:05→13:28)
[2021-10-24] MEDS: fentaNYL citrate/PF 100 MCG/2 ML VIAL 25 MCG IVPUSH ×3 (13:21→13:32)
--- NOTE | 2021-10-24 14:55 | HO.PM.IMCN ---
History of Present Illness Data of Consult Service Date: 10/24/21 Primary Care Provider: Jordan Nj MD HPI Reason for consult: management of comorbid medical conditions 76yo F with medical history as below s/p L TSA today by Dr Delgado. Hospitalist consultation requested for management of comorbid medical conditions. She has HTN + prediabetes but no hx of CAD or CVA. Denies fever, chills, cough, dyspnea, chest pain, nausea, vomiting, or abdominal pain. Postoperative pain is well-controlled. Review of Systems Review of Systems: Yes all other systems are reviewed and are negative [facility] Medical History Anxiety Asthma Axillary nerve injury Borderline high cholesterol Dyspepsia Eczema Greater tuberosity of humerus fracture HTN (hypertension) Hx of fracture of humerus Insomnia Neuropathy AVELINO (obstructive sleep apnea) Osteopenia Pain management Prediabetes Family History Mother Dementia DDD (degenerative disc disease) Aortic valve disorder Osteoporosis Myelodysplastic syndrome Father Hypertension Parkinsons Depression Brother Hypertension History of hip replacement History of shoulder replacement Sister Multiple sclerosis H/O removal of cyst Sister Scoliosis H/O removal of cyst Sister Hypertension DDD (degenerative disc disease) Scoliosis Surgical History H/O partial thyroidectomy History of back surgery History of bunionectomy of both great toes History of tonsillectomy Social History Housing: House Are you a primary client care representative to a significant other at home: No Do you presently have visiting nurse or other home services: No Patient Tobacco Use Status: Former Tobacco user Quit Date: Tobacco use type: Cigarette Years Smoked: 25 Use of substances other than those prescribed or required for medical reasons: Yes Substance Use Type: Marijuana Substance Use Frequency: Occasionally Have you been hit, kicked, punched, or otherwise hurt by someone within the past year? 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 Meds Allergies Allergy/AdvReac Type Severity Reaction Status Date / Time hay fever Allergy Unknown Unknown Uncoded 10/18/21 10:21 multiple environmental Allergy Unknown Unknown Uncoded 10/18/21 10:21 allergi Active Medications: Current Medications Acetaminophen (Acetaminophen 325 Mg Tablet) 650 mg PO Q6H PRN PRN Reason: Pain, Mild (Pain Scale 1-3) Albuterol Sulfate (Albuterol Sulfate 90 Mcg 8 Gm Inhaler) 2 puff INHALE Q6H PRN PRN Reason: Shortness Of Breath Or Wheezing Atenolol (Atenolol 25 Mg Tablet) 25 mg PO DAILY TOMMY; Protocol Celecoxib (Celecoxib 200 Mg Capsule) 200 mg PO BID TOMMY Docusate Sodium (Docusate Sodium 100 Mg Capsule) 100 mg PO BID TOMMY Escitalopram Oxalate (Escitalopram Oxalate 20 Mg Tablet) 20 mg PO DAILY TOMMY Famotidine (Famotidine 20 Mg Tablet) 20 mg PO BEDTIME TOMMY Fluticasone Propionate (Fluticasone Propionate Nasal 16 Gm [place]) 1 spray NOSTRIL-B DAILY [facility] Hydromorphone HCl (Hydromorphone Hcl 1 Mg/Ml Syringe) 0.25 mg IVPUSH Q4H PRN; Protocol PRN Reason: Pain, Severe (Pain Scale 7-10) Dextrose/Sodium Chloride (D51/2ns) 1,000 mls @ 80 mls/hr IVCONT .[id number] [facility] Cefazolin Sodium/Dextrose (Ancef) 2 gm in 50 mls @ 100 mls/hr IV POSTOP@1600 [facility] Loratadine (Loratadine 10 Mg Tablet) 10 mg PO DAILY [facility] Lorazepam (Lorazepam 1 Mg Tablet) 1 mg PO BEDTIME TOMMY Montelukast Sodium (Montelukast Sodium 10 Mg Tablet) 10 mg PO BEDTIME TOMMY Multivitamins/Vitamin C (Multivitamin Tablet) 1 tab PO DAILY TOMMY Non-Formulary Medication (Fluticasone Propionate [Flovent Hfa]) 1 puff INHALE BID PRN PRN Reason: Shortness Of Breath Or Wheezing Non-Formulary Medication (Magnesium) 250 mg PO BEDTIME TOMMY Non-Formulary Medication (Hydrocortisone) 1 appl TOPICAL DAILY PRN PRN Reason: Rash Ondansetron HCl (Ondansetron Hcl 4 Mg/2 Ml Vial) 4 mg IVPUSH Q8H PRN PRN Reason: Nausea and Vomiting Oxycodone HCl (Oxycodone Hcl Immed Release 5 Mg Tablet) 5 mg PO Q4H PRN PRN Reason: Pain, Moderate (Pain Scale 4-6 Oxycodone HCl (Oxycodone Hcl Er 10 Mg Tab.Er.12h) 10 mg PO BID TOMMY Sodium Chloride (0.9 % Sodium Chloride Flush 3 Ml Syringe) 3 ml IVFLUSH QSHIFT TOMMY Valsartan (Valsartan 40 Mg Tablet) 40 mg PO BID TOMMY; Protocol Home Medications Medication Instructions Recorded Confirmed Last Taken Type albuterol sulfate 90 mcg/actuation 2 puff INHALATION Q6H PRN 05/18/20 10/17/21 Unknown History aerosol inhaler (ProAir HFA) cetirizine 10 mg capsule (Zyrtec) 10 mg PO DAILY 05/18/20 10/17/21 10/24/21 History fluticasone propionate 110 1 puff INHALATION BID PRN 05/18/20 10/17/21 03/28/21 07:30 History mcg/actuation HFA aerosol inhaler (Flovent HFA) multivitamin 1 tab PO DAILY 03/28/21 10/17/21 Unknown History betamethasone dipropionate 0.05 % 1 appl TOPICAL BID PRN 09/19/21 10/17/21 Unknown History topical cream docusate sodium 100 mg capsule 100 mg PO BEDTIME PRN 09/19/21 10/17/21 Unknown History (Colace) famotidine 20 mg tablet 20 mg PO BEDTIME 09/19/21 10/17/21 Unknown History fluticasone propionate 50 1 spray INTRANASAL DAILY 09/19/21 10/17/21 10/24/21 History mcg/actuation nasal spray,suspension (Flonase Allergy Relief) lorazepam 1 mg tablet 1 mg PO BEDTIME 09/19/21 10/17/21 Unknown History magnesium 250 mg tablet 250 mg PO BEDTIME 09/19/21 10/17/21 Unknown History montelukast 10 mg tablet 10 mg PO BEDTIME 09/19/21 10/17/21 Unknown History hydrocortisone 2.5 % topical 1 appl TOPICAL DAILY PRN 10/24/21 10/24/21 Unknown History ointment Physical Exam Vital Signs and Narrative: Vital Signs: Last Vital Signs Temp 97.1 F 10/24/21 14:31 Pulse 69 10/24/21 14:31 Resp 18 10/24/21 14:31 BP 179/101 H 10/24/21 14:31 Pulse Ox 93 10/24/21 14:31 BMI result Body Mass Index 32.5 Gen: in no acute distress HEENT: sclera anicteric, moist mucus membranes Neck: supple Lungs: clear to auscultation bilaterally Heart: regular rate and rhythm, no murmurs Abd: soft, non-tender, non-distended Ext: no edema, LUE in sling Skin: warm/well-perfused Neuro: alert and oriented x3, no focal findings Psych: appropriate affect Results Labs Labs: Laboratory Results - last 24 hr 10/24/21 08:23 COVID-19 (JUNAID) Negative COVID-19 Clin Com See Note Assessment and Plan (1) HTN (hypertension): Qualifiers: Hypertension type: unspecified Qualified Code(s): I10 - Essential (primary) hypertension Status: Acute Plan 76yo F POD#0 L TSA, hospitalist consult for management of comorbid medical conditions # HTN - resume home valsartan and atenolol # asthma - inhaled fluticasone + albuterol, montelukast # anxiety - escitalopram + lorazepam # AVELINO - not on CPAP # VTE ppx - begin as per Ortho Thank you for this consultation. We will continue to follow along with you.
--- NOTE | 2021-10-24 15:20 | PC.NURSE ---
PT RECEIVED INTO ROOM 385 AT 1410. ORIENTED TO UNIT. AMB TO BR WITH 1 ASSIST. LEFT SHOULDER DSG D&I. SLING IN PLACE. BP ELEVATED.AFTER AMB FROM BR. WILL MONITOR BEFORE STARTING IV FLUIDS. BED ALARM ON.
[2021-10-24] MEDS: ceFAZolin Sodium/Dextrose,Iso 2 GM/50 ML PIGGYBACK IV (15:53)
[2021-10-24] MEDS: oxyCODONE HCl Immed Release 5 MG TABLET PO (15:53)
[2021-10-24] MEDS: Dextrose 5 % and 0.45 % NaCl 1,000 ML 80 ML IVCONT (15:55)
[2021-10-24] MEDS: 0.9 % Sodium Chloride Flush 3 ML SYRINGE IVFLUSH (16:03)
[2021-10-24] MEDS: HYDROmorphone HCl 1 MG/ML SYRINGE 0.25 MG IVPUSH ×2 (17:50→22:27)
[2021-10-24] MEDS: Fluticasone Propionate 100 MCG BLST.W.DEV 1 PUFF INHALE (20:22)
[2021-10-24] MEDS: Docusate Sodium 100 MG CAPSULE PO (21:05)
[2021-10-24] MEDS: Valsartan 40 MG TABLET PO (21:05)
[2021-10-24] MEDS: Montelukast Sodium 10 MG TABLET PO (21:05)
[2021-10-24] MEDS: Celecoxib 200 MG CAPSULE PO (21:05)
[2021-10-24] MEDS: LORazepam 1 MG TABLET PO (21:06)
[2021-10-24] MEDS: Famotidine 20 MG TABLET PO (21:06)
[2021-10-24] MEDS: oxyCODONE HCl ER 10 MG TAB.ER.12H PO (21:06)
[2021-10-24] MEDS: Magnesium Oxide 400 MG TABLET 200 MG PO (21:06)
[2021-10-25] VITALS (8 sets, daily range): BP systolic 99–140; BP diastolic 68–92; PULSE 69–77; RESP 12–18; TEMP 36.5–37.1; O2SAT 95–96
[2021-10-25] MEDS: Dextrose 5 % and 0.45 % NaCl 1,000 ML 80 ML IVCONT ×2 (04:05→16:29)
[2021-10-25] MEDS: HYDROmorphone HCl 1 MG/ML SYRINGE 0.25 MG IVPUSH ×2 (04:12→22:33)
[2021-10-25 06:00] LABS: MANUAL DIFF FLAG NO
[2021-10-25 06:15] LABS: Basophils Percent Auto 0.4 % (0-2); Eosinophils Percent Auto 0.6 % (0-4); Hemoglobin 12.2 g/dl (12.0-16.0); Imm Gran Abs Auto 0.02 X10*3/uL (0.00-0.03); Imm Gran Pct Auto 0.3 % (0.0-0.4); Lymphocytes Absolute Auto 1.1 X10*3/uL (1.2-4.9); Lymphocytes Percent Auto 14.4 % (20-40); Mean Corpuscular HGB Conc 32.1 g/dl (31.0-35.0); Mean Corpuscular Hemoglobin 30.7 pg (27.0-33.0); Mean Corpuscular Volume 95.7 fL (80.0-98.0); Mean Platelet Volume 9.4 fL (9.4-12.3); Monocytes Absolute Auto 0.9 X10*3/uL (0.1-1.2); Monocytes Percent Auto 12.1 % (2-11); Neutrophils Absolute Auto 5.3 x10*3/uL (2.0-8.3); Neutrophils Percent Auto 72.2 % (45-73); Platelet Count 245 X10*3/uL (160-400); Red Blood Count 3.97 X10*6/uL (4.20-5.50); Red Cell Distribution Width 12.8 % (11.0-16.0); White Blood Count 7.3 X10*3/uL (4.8-10.8)
[2021-10-25 06:34] LABS: Anion Gap 13 (12-20); Blood Urea Nitrogen 10 mg/dL (9-16); Calcium 8.6 mg/dL (8.4-10.2); Carbon Dioxide 25 mmol/L (22-29); Chloride 105 mmol/L (96-108); Creatinine Clr Calc Pharmacy 70.6; Estimated Glomerular Filt Rate > 60; Glucose Fasting 129 mg/dL (60-99); Sodium 139 mmol/L (135-145)
[2021-10-25] MEDS: Loratadine 10 MG TABLET PO (07:57)
[2021-10-25] MEDS: Multivitamin TABLET 1 TAB PO (07:57)
[2021-10-25] MEDS: Escitalopram Oxalate 20 MG TABLET PO (07:57)
[2021-10-25] MEDS: Celecoxib 200 MG CAPSULE PO ×2 (07:58→20:43)
[2021-10-25] MEDS: atenoloL 25 MG TABLET PO (07:58)
[2021-10-25] MEDS: oxyCODONE HCl ER 10 MG TAB.ER.12H PO ×2 (07:58→20:41)
[2021-10-25] MEDS: Docusate Sodium 100 MG CAPSULE PO ×2 (07:58→20:41)
[2021-10-25] MEDS: Valsartan 40 MG TABLET PO ×2 (07:59→20:42)
[2021-10-25] MEDS: Fluticasone Propionate 100 MCG BLST.W.DEV 1 PUFF INHALE ×2 (08:33→19:56)
--- NOTE | 2021-10-25 08:57 | P.PNOP_ITS ---
Subjective Subjective Date of Service: 10/25/21 Interval history: POD1 s/p LT RTSA patient is resting comfortably in bed. No overnight events. Pain is well managed. No additional complaints. Physical Exam Vital Signs: Vital Signs: Last Vital Signs Temp 98.1 F 10/25/21 07:39 Pulse 77 10/25/21 07:39 Resp 18 10/25/21 08:33 BP 134/85 10/25/21 07:39 Pulse Ox 95 10/25/21 07:39 BMI result Body Mass Index 32.5 Const: General: cooperative, healthy appearing and no acute distress Resp: Effort & Inspection: normal respiratory effort and able to speak in complete sentences Cardio: Rate: regular rate Peripheral pulses: Peripheral pulses 2+ throughout GI: Palpation (GI): Soft to palpation Skin: Lesions: no lesions Rashes: no rashes Extrem: Other: Left upper extremities sensation at baseline. Patient is able to demonstrate thumbs up, wrist flexion and extension. Aquacel is clean dry and intact. Radial pulse intact. Procedures Date of Service Date of Service: 10/25/21 Progress Note: A&P Assessment and plan (1) Injury of axillary nerve, left arm, initial encounter: Status: Acute Assessment and Plan: Continue pain mgmnt Begin early ambulation for dvt ppx begin PT/OT for LT RTSA Dispo planning-Pending PT/OT, pain mgmnt (2) S/p reverse total shoulder arthroplasty: Status: Acute Fall Risk Details Current Medications: Current Medications Acetaminophen (Acetaminophen 325 Mg Tablet) 650 mg PO Q6H PRN PRN Reason: Pain, Mild (Pain Scale 1-3) Albuterol Sulfate (Albuterol Sulfate 90 Mcg 8 Gm Inhaler) 2 puff INHALE Q6H PRN PRN Reason: Shortness Of Breath Or Wheezing Atenolol (Atenolol 25 Mg Tablet) 25 mg PO DAILY [facility]; Protocol Last Admin: 10/25/21 07:58 Dose: 25 mg Documented by: Celecoxib (Celecoxib 200 Mg Capsule) 200 mg PO BID [facility] Last Admin: 10/25/21 07:58 Dose: 200 mg Documented by: Docusate Sodium (Docusate Sodium 100 Mg Capsule) 100 mg PO BID [facility] Last Admin: 10/25/21 07:58 Dose: 100 mg Documented by: Escitalopram Oxalate (Escitalopram Oxalate 20 Mg Tablet) 20 mg PO DAILY [facility] Last Admin: 10/25/21 07:57 Dose: 20 mg Documented by: Famotidine (Famotidine 20 Mg Tablet) 20 mg PO BEDTIME [facility] Last Admin: 10/24/21 21:06 Dose: 20 mg Documented by: Fluticasone Propionate (Fluticasone Propionate Nasal 16 Gm [place]) 1 spray NOSTRIL-B DAILY [facility] Fluticasone Propionate (Fluticasone Propionate 100 Mcg Blst.W.Dev) 1 puff INHALE RBID [facility] Last Admin: 10/25/21 08:33 Dose: 1 puff Documented by: Hydrocortisone (Hydrocortisone 1 % Ointment 28.35 Gm Tube) 1 appl TOPICAL DAILY PRN PRN Reason: Rash Hydromorphone HCl (Hydromorphone Hcl 1 Mg/Ml Syringe) 0.25 mg IVPUSH Q4H PRN; Protocol PRN Reason: Pain, Severe (Pain Scale 7-10) Last Admin: 10/25/21 04:12 Dose: 0.25 mg Documented by: Dextrose/Sodium Chloride (D51/2ns) 1,000 mls @ 80 mls/hr IVCONT .[id number] [facility] Last Admin: 10/25/21 04:05 Dose: 80 mls/hr Documented by: Cefazolin Sodium/Dextrose (Ancef) 2 gm in 50 mls @ 100 mls/hr IV POSTOP@1600 [facility] Last Infusion: 10/24/21 16:28 Dose: Infused Documented by: Loratadine (Loratadine 10 Mg Tablet) 10 mg PO DAILY [facility] Last Admin: 10/25/21 07:57 Dose: 10 mg Documented by: Lorazepam (Lorazepam 1 Mg Tablet) 1 mg PO BEDTIME [facility] Last Admin: 10/24/21 21:06 Dose: 1 mg Documented by: Magnesium Oxide (Magnesium Oxide 400 Mg Tablet) 200 mg PO BEDTIME [facility] Last Admin: 10/24/21 21:06 Dose: 200 mg Documented by: Montelukast Sodium (Montelukast Sodium 10 Mg Tablet) 10 mg PO BEDTIME [facility] Last Admin: 10/24/21 21:05 Dose: 10 mg Documented by: Multivitamins/Vitamin C (Multivitamin Tablet) 1 tab PO DAILY [facility] Last Admin: 10/25/21 07:57 Dose: 1 tab Documented by: Ondansetron HCl (Ondansetron Hcl 4 Mg/2 Ml Vial) 4 mg IVPUSH Q8H PRN PRN Reason: Nausea and Vomiting Oxycodone HCl (Oxycodone Hcl Immed Release 5 Mg Tablet) 5 mg PO Q4H PRN PRN Reason: Pain, Moderate (Pain Scale 4-6 Last Admin: 10/24/21 15:53 Dose: 5 mg Documented by: Oxycodone HCl (Oxycodone Hcl Er 10 Mg Tab.Er.12h) 10 mg PO BID [facility] Last Admin: 10/25/21 07:58 Dose: 10 mg Documented by: Sodium Chloride (0.9 % Sodium Chloride Flush 3 Ml Syringe) 3 ml IVFLUSH QSHIFT [facility] Last Admin: 10/25/21 07:56 Dose: Not Given Documented by: Valsartan (Valsartan 40 Mg Tablet) 40 mg PO BID [facility]; Protocol Last Admin: 10/25/21 07:59 Dose: 40 mg Documented by: Time Spent With Patient Time: Total time spent is greater than 50% in coordination of care (as documented) at patient's floor/unit and/or counseling patient: Quality Stroke Does the patient have a stroke diagnosis?: No VTE Prior VTE?: No VTE Risk Level:: Medical - moderate - high VTE Device Contraindication: N/A - Device Ordered VTE Drug Contraindication: Treatment Not Indicated
[2021-10-25] MEDS: Fluticasone Propionate Nasal 16 GM SPRAY 1 SPRAY NOSTRIL-B (09:12)
--- NOTE | 2021-10-25 09:56 | MHC.CM.PN ---
Addendum entered by Angela Antony 10/25/21 13:29: [facility] IS OUT OF NETWORK WITH PTS INSURANCE AND UNABLE TO ACCEPT REFERRAL [facility] HAS INDICATED THEY WOULD NOT BE ABLE TO START CARE UNTIL FRIDAY. CM MESSAGED ORTHOPEDIC PA'S THIS INFORMATION TO FIND OUT IF IT WOULD BE ACCEPTABLE. AWAITING RESPONSE Original Note: PT REPORTS SHE LIVES ALONE AND IS INDEPENDENT WITH CARE AT BASELINE PT DENIES USE OF DME OR HOME SERVICES COLLARETTE SEPARATOR PT CONFIRMS HER PCP IS ALEJANDRA HENAO PT REPORTS SHE HAS A LIVING WILL BUT NO HCP, SHE WILL CONSIDER COMPLETING ONE TODAY NAMING HER SISTER HER AGENT SHE IS AWARE CM CAN ASSIST AT ANY TIME DURING ADMISSION PT REPORTS SHE HAS BEEN VACCINATED AGAINST COVID-19 WITH MODERNA, SHE ALSO HAS RECEIVED THE BOOSTER IMM DELIVERED CURRENT DC PLAN IS HOME WITH OT REFERRALS MADE TO [facility] AND [facility] PER PTS STATED PREFERENCE PT REPORTS SHE WOULD BE HAPPY WITH EITHER ONE LONG THEY HAVE THE AVAILABILITY TO SEE HER FRIDAY FAMILY WILL TRANSPORT
--- NOTE | 2021-10-25 10:26 | HO.PM.IMPN ---
Subjective Subjective Date of Service: 10/25/21 Interval History: Postop pain controlled No chest pain or dyspnea BP controlled Review of Systems Review of Systems: Yes all other systems are reviewed and are negative Physical Exam Vital Signs: Vital Signs: Last Vital Signs Temp 98.1 F 10/25/21 07:39 Pulse 77 10/25/21 07:39 Resp 18 10/25/21 08:33 BP 134/85 10/25/21 07:39 Pulse Ox 95 10/25/21 07:39 BMI result Body Mass Index 32.5 Gen: in no acute distress HEENT: sclera anicteric, moist mucus membranes Neck: supple Lungs: clear to auscultation bilaterally Heart: regular rate and rhythm, no murmurs Abd: soft, non-tender, non-distended Ext: no edema, LUE in sling, surgical dressing with dried blood Skin: warm/well-perfused Neuro: alert and oriented x3, no focal findings Psych: appropriate affect Objective Data Active Medications Acetaminophen (Acetaminophen 325 Mg Tablet) 650 mg PO Q6H PRN PRN Reason: Pain, Mild (Pain Scale 1-3) Albuterol Sulfate (Albuterol Sulfate 90 Mcg 8 Gm Inhaler) 2 puff INHALE Q6H PRN PRN Reason: Shortness Of Breath Or Wheezing Atenolol (Atenolol 25 Mg Tablet) 25 mg PO DAILY [facility]; Protocol Last Admin: 10/25/21 07:58 Dose: 25 mg Documented by: ARACELIS Celecoxib (Celecoxib 200 Mg Capsule) 200 mg PO BID [facility] Last Admin: 10/25/21 07:58 Dose: 200 mg Documented by: ARACELIS Docusate Sodium (Docusate Sodium 100 Mg Capsule) 100 mg PO BID [facility] Last Admin: 10/25/21 07:58 Dose: 100 mg Documented by: ARACELIS Escitalopram Oxalate (Escitalopram Oxalate 20 Mg Tablet) 20 mg PO DAILY [facility] Last Admin: 10/25/21 07:57 Dose: 20 mg Documented by: ARACELIS Famotidine (Famotidine 20 Mg Tablet) 20 mg PO BEDTIME [facility] Last Admin: 10/24/21 21:06 Dose: 20 mg Documented by: ADI Fluticasone Propionate (Fluticasone Propionate Nasal 16 Gm [place]) 1 spray NOSTRIL-B DAILY [facility] Last Admin: 10/25/21 09:12 Dose: 1 spray Documented by: ARACELIS Fluticasone Propionate (Fluticasone Propionate 100 Mcg Blst.W.Dev) 1 puff INHALE RBID [facility] Last Admin: 10/25/21 08:33 Dose: 1 puff Documented by: GISSELLE Hydrocortisone (Hydrocortisone 1 % Ointment 28.35 Gm Tube) 1 appl TOPICAL DAILY PRN PRN Reason: Rash Hydromorphone HCl (Hydromorphone Hcl 1 Mg/Ml Syringe) 0.25 mg IVPUSH Q4H PRN; Protocol PRN Reason: Pain, Severe (Pain Scale 7-10) Last Admin: 10/25/21 04:12 Dose: 0.25 mg Documented by: ADI Dextrose/Sodium Chloride (D51/2ns) 1,000 mls @ 80 mls/hr IVCONT .[id number] [facility] Last Admin: 10/25/21 04:05 Dose: 80 mls/hr Documented by: ADI Loratadine (Loratadine 10 Mg Tablet) 10 mg PO DAILY [facility] Last Admin: 10/25/21 07:57 Dose: 10 mg Documented by: ARACELIS Lorazepam (Lorazepam 1 Mg Tablet) 1 mg PO BEDTIME [facility] Last Admin: 10/24/21 21:06 Dose: 1 mg Documented by: ADI Magnesium Oxide (Magnesium Oxide 400 Mg Tablet) 200 mg PO BEDTIME [facility] Last Admin: 10/24/21 21:06 Dose: 200 mg Documented by: ADI Montelukast Sodium (Montelukast Sodium 10 Mg Tablet) 10 mg PO BEDTIME [facility] Last Admin: 10/24/21 21:05 Dose: 10 mg Documented by: ADI Multivitamins/Vitamin C (Multivitamin Tablet) 1 tab PO DAILY [facility] Last Admin: 10/25/21 07:57 Dose: 1 tab Documented by: ARACELIS Ondansetron HCl (Ondansetron Hcl 4 Mg/2 Ml Vial) 4 mg IVPUSH Q8H PRN PRN Reason: Nausea and Vomiting Oxycodone HCl (Oxycodone Hcl Immed Release 5 Mg Tablet) 5 mg PO Q4H PRN PRN Reason: Pain, Moderate (Pain Scale 4-6 Last Admin: 10/24/21 15:53 Dose: 5 mg Documented by: ADI Oxycodone HCl (Oxycodone Hcl Er 10 Mg Tab.Er.12h) 10 mg PO BID [facility] Last Admin: 10/25/21 07:58 Dose: 10 mg Documented by: ARACELIS Sodium Chloride (0.9 % Sodium Chloride Flush 3 Ml Syringe) 3 ml IVFLUSH QSHIFT [facility] Last Admin: 10/25/21 07:56 Dose: Not Given Documented by: ARACELIS Non-Admin Reason: IV Running Valsartan (Valsartan 40 Mg Tablet) 40 mg PO BID [facility]; Protocol Last Admin: 10/25/21 07:59 Dose: 40 mg Documented by: ARACELIS Labs CBC & Chem 7: 10/25/21 05:22 10/25/21 05:22 Labs: Laboratory Results - last 24 hr 10/25/21 10/25/21 05:22 05:22 MCV 95.7 MCH 30.7 MCHC 32.1 RDW 12.8 Plt Count 245 MPV 9.4 Immature Gran % (Auto) 0.3 Neut % (Auto) 72.2 Lymph % (Auto) 14.4 L [place] % (Auto) 12.1 H Eos % (Auto) 0.6 Baso % (Auto) 0.4 Lymph # (Auto) 1.1 L [place] # (Auto) 0.9 Eos # (Auto) 0.0 Baso # (Auto) 0.0 Abs Immat Gran (auto) 0.02 Absolute Neuts (auto) 5.3 Absolute Nucleated RBC 0.000 Nucleated RBC % (auto) 0.0 Anion Gap 13 Estim Creat Clear Calc 70.6 Estimated GFR > 60 Fasting Glucose 129 H Calcium 8.6 D Assessment and Plan (1) HTN (hypertension): Status: Acute Plan 76yo F POD#1 L TSA, hospitalist consult for management of comorbid medical conditions # HTN - valsartan + atenolol # asthma - inhaled fluticasone + albuterol, montelukast # anxiety - escitalopram + lorazepam # AVELINO - not on CPAP # VTE ppx - early ambulation Quality Stroke Does the patient have a stroke diagnosis?: No VTE Prior VTE?: No VTE Risk Level:: Medical - moderate - high VTE Device Contraindication: N/A - Device Ordered VTE Drug Contraindication: Treatment Not Indicated
--- NOTE | 2021-10-25 13:50 | HO.POSTANES ---
Post Anesthesia Evaluation Post Anesthesia Evaluation Vital Signs: Vital Signs Temp Pulse Resp BP Pulse Ox 10/25/21 11:43 97.7 F 69 18 99/68 95 10/25/21 08:33 18 10/25/21 07:39 98.1 F 77 18 134/85 95 10/25/21 03:52 98.2 F 69 16 135/78 96 Anesthesia: General Mental Status: Awake Pain Control: Satisfactory Nausea/Vomiting: None Hydration: Adequate Anesthesia-Related Issues: No Anes. Related Issues
[2021-10-25] MEDS: oxyCODONE HCl Immed Release 5 MG TABLET PO (16:28)
[2021-10-25] MEDS: Montelukast Sodium 10 MG TABLET PO (20:41)
[2021-10-25] MEDS: Magnesium Oxide 400 MG TABLET 200 MG PO (20:41)
[2021-10-25] MEDS: LORazepam 1 MG TABLET PO (20:42)
[2021-10-25] MEDS: Famotidine 20 MG TABLET PO (20:42)
[2021-10-25] MEDS: Acetaminophen 325 MG TABLET 650 MG PO (22:44)
[2021-10-26] VITALS: BP 150/93; PULSE 75; RESP 17; TEMP 36.7; O2SAT 95
[2021-10-26 00:08] VITALS: TEMP 36.7
[2021-10-26] MEDS: HYDROmorphone HCl 1 MG/ML SYRINGE 0.25 MG IVPUSH ×2 (03:06→09:01)
[2021-10-26 04:00] VITALS: BP 147/91; PULSE 72; RESP 18; TEMP 36.4; O2SAT 95
[2021-10-26] MEDS: Dextrose 5 % and 0.45 % NaCl 1,000 ML 80 ML IVCONT (05:04)
--- NOTE | 2021-10-26 05:54 | P.CDIC_ITS ---
CDI Concurrent Query Documentation Clarification: PHYSICIAN'S DOCUMENTATION REQUEST Date of Query: 10/26/21 0554 Patient Name: Sandra Villeda Admit Date: 10/24/21 Dear Doctor, A review of the medical record indicates additional documentation may be needed. Please review below and update the documentation accordingly. Clinical Indicators: Risk Factors/Clinical Indicators/Treatments BMI : 32.6 5' 6 in height If possible, please provide an associated diagnosis related to the abnormal BMI, such as: For a BMI >= 40: * Overweight * Obesity * Due to excess calories * Drug induced * Due to other cause * Severe or Morbid Obesity * With alveolar hypoventilation * Without alveolar hypoventilation Or: * BMI is not significant * Other (please specify) * Unable to determine Use of terms such as suspected, likely, concern for, or probable (associated with a specific diagnosis that is being evaluated, monitored, or treated as if it exists) are acceptable and can be coded in the inpatient setting, when documented at the time of discharge. Thank you, Lorena Christina [facility], CDIS Extension: [phone] Please use your independent medical judgment in providing your response. THIS QUERY IS PART OF THE PERMANENT MEDICAL RECORD Provider Response: Obesity
--- NOTE | 2021-10-26 05:54 | MHC.CDI.CONC ---
CDI Concurrent Query Documentation Clarification: PHYSICIAN'S DOCUMENTATION REQUEST Date of Query: 10/26/21 0554 Patient Name: Sandra Villeda Admit Date: 10/24/21 Dear Doctor, A review of the medical record indicates additional documentation may be needed. Please review below and update the documentation accordingly. Clinical Indicators: Risk Factors/Clinical Indicators/Treatments BMI : 32.6 5' 6 in height If possible, please provide an associated diagnosis related to the abnormal BMI, such as: For a BMI >= 40: Overweight Obesity Due to excess calories Drug induced Due to other cause Severe or Morbid Obesity With alveolar hypoventilation Without alveolar hypoventilation Or: BMI is not significant Other (please specify) Unable to determine Use of terms such as suspected, likely, concern for, or probable (associated with a specific diagnosis that is being evaluated, monitored, or treated as if it exists) are acceptable and can be coded in the inpatient setting, when documented at the time of discharge. Thank you, Lorena Christina [facility], CDIS Extension: [phone] Please use your independent medical judgment in providing your response. THIS QUERY IS PART OF THE PERMANENT MEDICAL RECORD Provider Response: Obesity
[2021-10-26 06:04] LABS: MANUAL DIFF FLAG NO
[2021-10-26 06:12] LABS: Basophils Percent Auto 0.7 % (0-2); Eosinophils Absolute Auto 0.4 X10*3/uL (0.0-0.4); Eosinophils Percent Auto 6.4 % (0-4); Hemoglobin 11.6 g/dl (12.0-16.0); Imm Gran Abs Auto 0.02 X10*3/uL (0.00-0.03); Imm Gran Pct Auto 0.3 % (0.0-0.4); Lymphocytes Absolute Auto 1.4 X10*3/uL (1.2-4.9); Lymphocytes Percent Auto 22.6 % (20-40); Mean Corpuscular HGB Conc 32.2 g/dl (31.0-35.0); Mean Corpuscular Volume 99.2 fL (80.0-98.0); Mean Platelet Volume 9.6 fL (9.4-12.3); Monocytes Absolute Auto 0.8 X10*3/uL (0.1-1.2); Neutrophils Absolute Auto 3.5 x10*3/uL (2.0-8.3); Platelet Count 196 X10*3/uL (160-400); Red Blood Count 3.63 X10*6/uL (4.20-5.50); Red Cell Distribution Width 13.2 % (11.0-16.0); White Blood Count 6.1 X10*3/uL (4.8-10.8)
[2021-10-26 06:24] LABS: Anion Gap 11 (12-20); Blood Urea Nitrogen 14 mg/dL (9-16); Calcium 8.3 mg/dL (8.4-10.2); Carbon Dioxide 26 mmol/L (22-29); Chloride 107 mmol/L (96-108); Creatinine Clr Calc Pharmacy 74.5; Estimated Glomerular Filt Rate > 60; Glucose Fasting 121 mg/dL (60-99); Potassium 4.2 mmol/L (3.3-5.1); Sodium 140 mmol/L (135-145)
[2021-10-26 07:30] VITALS: BP 149/80; PULSE 70; RESP 16; TEMP 37.1; O2SAT 95
--- NOTE | 2021-10-26 08:09 | P.DS_ITS ---
DS: Providers Provider Date of Service: 10/26/21 Date of admission: 10/24/21 08:21 Primary care physician: Jordan Nj MD Consults: 10/24/21 14:24 Consult to Hospitalist Routine Consulting Provider: Hospitalist Reason For Exam: routine medical management DS: Diagnosis Discharge Diagnosis (1) HTN (hypertension): Status: Acute DS: Summary Hospital Course Hospital Course: The patient underwent a successful Left total shoulder arthroplasty, they were transferred to PACU and then to the floor to recover. During their stay, their vitals were stable, afebrile at 98.7. Labs were unremarkable, H/H 11.6/36.0. POD 1 they received Physical Therapy/Occupational Therapy services twice a day. Prior to discharge, their dressing was changed, incision clean dry and intact, new Acticoat dressing applied and the plan was to be discharged home with VNA services. Time Spent with Patient Time attestation: Total time spent providing and/or coordinating discharge services: Discharge coordination time: Less than 30 minutes Quality: Stroke Does the patient have a stroke diagnosis?: No Physical Exam Vital Signs: Vital Signs: Last Vital Signs Temp 98.7 F 10/26/21 07:30 Pulse 70 10/26/21 07:30 Resp 16 10/26/21 07:30 BP 149/80 H 10/26/21 07:30 Pulse Ox 95 10/26/21 07:30 BMI result Body Mass Index 32.5 Const: General: cooperative, healthy appearing and no acute distress Resp: Effort & Inspection: normal respiratory effort and able to speak in complete sentences Cardio: Rate: regular rate Peripheral pulses: Peripheral pulses 2+ throughout GI: Palpation (GI): Soft to palpation Skin: Lesions: no lesions Rashes: no rashes Extrem: Other: Left shoulder inscision is clean, dry, and intact. [place] intact. Patient is able to demonstrate full finger flexion, extension, abduction, adduction, thumbs up, finger cross, and OK sign without deficits. Sensation intact. Radial pulse intact. DS: Data Data Completed and Pending Pending studies at discharge: Pending at discharge 10/24/21 12:12 Surgical [PTH] Routine Labs on day of discharge: Laboratory Results - last 24 hr 10/26/21 10/26/21 05:36 05:36 WBC 6.1 RBC 3.63 L Hgb 11.6 L Hct 36.0 L MCV 99.2 H MCH 32.0 MCHC 32.2 RDW 13.2 Plt Count 196 MPV 9.6 Immature Gran % (Auto) 0.3 Neut % (Auto) 57.0 Lymph % (Auto) 22.6 [place] % (Auto) 13.0 H Eos % (Auto) 6.4 H Baso % (Auto) 0.7 Lymph # (Auto) 1.4 [place] # (Auto) 0.8 Eos # (Auto) 0.4 Baso # (Auto) 0.0 Abs Immat Gran (auto) 0.02 Absolute Neuts (auto) 3.5 Absolute Nucleated RBC 0.000 Nucleated RBC % (auto) 0.0 Sodium 140 Potassium 4.2 Chloride 107 Carbon Dioxide 26 Anion Gap 11 L BUN 14 Creatinine 0.72 Estim Creat Clear Calc 74.5 Estimated GFR > 60 Fasting Glucose 121 H Calcium 8.3 L Discharge Plan Discharge Patient Disposition: Home Health Service Discharge Diagnosis: as/p LT RTSA Referrals: Elham Mckeon PA-C [Physician Client Services Assistant] - 1 Week (11/08/21 at 1:00pm with your first P.T. appt.) Discharge Medications: New acetaminophen 325 mg Tablet 650 mg PO Q6H PRN (Reason: Pain, Mild (Pain Scale 1-3)) 30 Days Qty: 240 0RF celecoxib 200 mg Capsule 200 mg PO BID 30 Days Qty: 60 0RF docusate sodium 100 mg Capsule 100 mg PO BID 30 Days Qty: 60 0RF oxycodone 5 mg Tablet 5 mg PO Q4H PRN (Reason: Pain, Moderate (Pain Scale 4-6) 7 Days Qty: 42 0RF Continued atenolol 25 mg tablet 25 mg PO DAILY 30 Days Qty: 90 0RF multivitamin Tablet 1 tab PO DAILY 0RF betamethasone dipropionate 0.05 % Cream 1 appl TOPICAL BID PRN (Reason: Rash) 0RF docusate sodium [Colace] 100 mg Capsule 100 mg PO BEDTIME PRN (Reason: Constipation) 0RF magnesium 250 mg Tablet 250 mg PO BEDTIME 0RF famotidine 20 mg tablet 20 mg PO BEDTIME 0RF montelukast 10 mg tablet 10 mg PO BEDTIME 0RF lorazepam 1 mg tablet 1 mg PO BEDTIME 0RF fluticasone propionate [Flonase Allergy Relief] 50 mcg/actuation spray,suspension 1 spray intranasal DAILY 0RF Rx Instructions: administer into each nostril hydrocortisone 2.5 % ointment 1 appl topical DAILY PRN (Reason: Rash) 0RF valsartan 40 mg tablet 40 mg PO BID 90 Days Qty: 180 0RF escitalopram oxalate 20 mg tablet 20 mg PO DAILY 90 Days Qty: 90 3RF Zyrtec 10 mg capsule 10 mg PO DAILY 0RF Flovent HFA 110 mcg/actuation HFA aerosol inhaler 1 puff inhalation BID PRN (Reason: Shortness Of Breath Or Wheezing) 0RF albuterol sulfate [ProAir HFA] 90 mcg/actuation HFA aerosol inhaler 2 puff inhalation Q6H PRN (Reason: Shortness Of Breath Or Wheezing) 0RF Discharge Orders: Discharge Order (Routine); Ordered 10/26/21 Ordered By: Elahm Mckeon Diet: advance to usual diet Activity on Discharge: Use Splints or Immobilizers Stand Alone Forms: Patient Portal Discharge page Care Plan Goals: Restore fxn to left shoulder Health Concerns: None Plan of Treatment: Wear sling at all times, including sleeping-OK to remove for pendulum exercises throughout the day No lifting-OK to move arm at elbow and wrist Do not bathe or shower--Keep dressing clean, dry, and intact -- if it falls off call orthopedics. Take Oxycodone 5mg tabs 1 tab by mouth every 4 hours as needed Call [facility] orthopedics with any questions or concerns. [phone] Follow up with orthopedics in 7-10 days post op Assessment: Stable for D/C
[2021-10-26] MEDS: Fluticasone Propionate 100 MCG BLST.W.DEV 1 PUFF INHALE (08:34)
[2021-10-26 08:36] VITALS: PULSE 75; RESP 20; O2SAT 94
--- NOTE | 2021-10-26 08:50 | W.MHC.F2F ---
Service Date Service Date: 10/26/21 Encounter Date of encounter: 10/26/21 Reasons for Services Signs and symptoms assessed: Pt. is considered homebound due to recent surgery. Unable to drive, poor balance, poor gait mechanics. Reason for physical therapy: home safety and mobility, therapeutic exercises, restore joint function, assess need for DME and ADL training Reason for occupational therapy: home safety and mobility, therapeutic exercises, restore joint function, assess need for DME and ADL training Homebound: Leaving the home is medically contraindicated at this time without the asist of a device and/or another person due th the listed conditions above and below. Reason homebound: unsteady gait / fall risk, pain with ambulation, pain with transfers and unable to drive Homebound supporting statement: Pt. is considered homebound due to recent surgery. Unable to drive, poor balance, poor gait mechanics. Certification: Based on the above findings, I certify that this patient is confined to the home and needs intermittent, physical therapy and/or speech therapy, or continues to need occupational therapy. The patient is under my care, and I have initiated the establishment of the plan of care. The patient will be followed by a physician who will periodically review the plan of care.
--- NOTE | 2021-10-26 08:51 | MHC.CM.PN ---
PATIENT TO RETURN HOME TODAY WITH [facility] FOR PT AND OT. RN AWARE OF PLAN. IMM 10/25 COMPLETED
[2021-10-26] MEDS: Docusate Sodium 100 MG CAPSULE PO (08:52)
[2021-10-26] MEDS: Valsartan 40 MG TABLET PO (08:52)
[2021-10-26] MEDS: Multivitamin TABLET 1 TAB PO (08:53)
[2021-10-26] MEDS: oxyCODONE HCl ER 10 MG TAB.ER.12H PO (08:53)
[2021-10-26] MEDS: Celecoxib 200 MG CAPSULE PO (08:53)
[2021-10-26] MEDS: 0.9 % Sodium Chloride Flush 3 ML SYRINGE IVFLUSH (08:54)
[2021-10-26] MEDS: atenoloL 25 MG TABLET PO (08:54)
[2021-10-26] MEDS: Loratadine 10 MG TABLET PO (08:54)
[2021-10-26] MEDS: Escitalopram Oxalate 20 MG TABLET PO (08:54)
[2021-10-26] MEDS: Fluticasone Propionate Nasal 16 GM SPRAY 1 SPRAY NOSTRIL-B (08:54)
--- NOTE | 2021-10-26 09:16 | HO.PM.IMPN ---
Subjective Subjective Date of Service: 10/26/21 Interval History: no dyspnea or wheeze no chest pain post op pain controlled Review of Systems Review of Systems: Yes all other systems are reviewed and are negative Physical Exam Vital Signs: Vital Signs: Last Vital Signs Temp 98.7 F 10/26/21 07:30 Pulse 70 10/26/21 07:30 Resp 20 10/26/21 08:36 BP 149/80 H 10/26/21 07:30 Pulse Ox 95 10/26/21 07:30 BMI result Body Mass Index 32.5 Gen: in no acute distress HEENT: sclera anicteric, moist mucus membranes Neck: supple Lungs: clear to auscultation bilaterally Heart: regular rate and rhythm, no murmurs Abd: soft, non-tender, non-distended Ext: no edema, LUE in sling, surgical dressing with dried blood Skin: warm/well-perfused Neuro: alert and oriented x3, no focal findings Psych: appropriate affect Objective Data Active Medications Acetaminophen (Acetaminophen 325 Mg Tablet) 650 mg PO Q6H PRN PRN Reason: Pain, Mild (Pain Scale 1-3) Last Admin: 10/25/21 22:44 Dose: 650 mg Documented by: ADI Albuterol Sulfate (Albuterol Sulfate 90 Mcg 8 Gm Inhaler) 2 puff INHALE Q6H PRN PRN Reason: Shortness Of Breath Or Wheezing Atenolol (Atenolol 25 Mg Tablet) 25 mg PO DAILY [facility]; Protocol Last Admin: 10/26/21 08:54 Dose: 25 mg Documented by: DYLAN Celecoxib (Celecoxib 200 Mg Capsule) 200 mg PO BID [facility] [place] Last Admin: 10/26/21 08:53 Dose: 200 mg Documented by: DYLAN Docusate Sodium (Docusate Sodium 100 Mg Capsule) 100 mg PO BID [facility] [place] Last Admin: 10/26/21 08:52 Dose: 100 mg Documented by: DYLAN Escitalopram Oxalate (Escitalopram Oxalate 20 Mg Tablet) 20 mg PO DAILY [facility] [place] Last Admin: 10/26/21 08:54 Dose: 20 mg Documented by: DYLAN Famotidine (Famotidine 20 Mg Tablet) 20 mg PO BEDTIME [facility] [place] Last Admin: 10/25/21 20:42 Dose: 20 mg Documented by: ADI Fluticasone Propionate (Fluticasone Propionate Nasal 16 Gm [place]) 1 spray NOSTRIL-B DAILY [facility] [place] Last Admin: 10/26/21 08:54 Dose: 1 spray Documented by: DYLAN Fluticasone Propionate (Fluticasone Propionate 100 Mcg Blst.W.Dev) 1 puff INHALE RBID [facility] [place] Last Admin: 10/26/21 08:34 Dose: 1 puff Documented by: ASPEN Hydrocortisone (Hydrocortisone 1 % Ointment 28.35 Gm Tube) 1 appl TOPICAL DAILY PRN PRN Reason: Rash Hydromorphone HCl (Hydromorphone Hcl 1 Mg/Ml Syringe) 0.25 mg IVPUSH Q4H PRN; Protocol PRN Reason: Pain, Severe (Pain Scale 7-10) Last Admin: 10/26/21 09:01 Dose: 0.25 mg Documented by: DYLAN Dextrose/Sodium Chloride (D51/2ns) 1,000 mls @ 80 mls/hr IVCONT .[id number] [facility] [place] Last Admin: 10/26/21 05:04 Dose: 80 mls/hr Documented by: ADI Loratadine (Loratadine 10 Mg Tablet) 10 mg PO DAILY [facility] [place] Last Admin: 10/26/21 08:54 Dose: 10 mg Documented by: DYLAN Lorazepam (Lorazepam 1 Mg Tablet) 1 mg PO BEDTIME [facility] [place] Last Admin: 10/25/21 20:42 Dose: 1 mg Documented by: ADI Magnesium Oxide (Magnesium Oxide 400 Mg Tablet) 200 mg PO BEDTIME [facility] [place] Last Admin: 10/25/21 20:41 Dose: 200 mg Documented by: ADI Montelukast Sodium (Montelukast Sodium 10 Mg Tablet) 10 mg PO BEDTIME [facility] [place] Last Admin: 10/25/21 20:41 Dose: 10 mg Documented by: ADI Multivitamins/Vitamin C (Multivitamin Tablet) 1 tab PO DAILY [facility] [place] Last Admin: 10/26/21 08:53 Dose: 1 tab Documented by: DYLAN Ondansetron HCl (Ondansetron Hcl 4 Mg/2 Ml Vial) 4 mg IVPUSH Q8H PRN PRN Reason: Nausea and Vomiting Oxycodone HCl (Oxycodone Hcl Immed Release 5 Mg Tablet) 5 mg PO Q4H PRN PRN Reason: Pain, Moderate (Pain Scale 4-6 Last Admin: 10/25/21 16:28 Dose: 5 mg Documented by: ADI Oxycodone HCl (Oxycodone Hcl Er 10 Mg Tab.Er.12h) 10 mg PO BID [facility] [place] Last Admin: 10/26/21 08:53 Dose: 10 mg Documented by: DYLAN Sodium Chloride (0.9 % Sodium Chloride Flush 3 Ml Syringe) 3 ml IVFLUSH QSHIFT [facility] [place] Last Admin: 10/26/21 08:54 Dose: 3 ml Documented by: DYLAN Valsartan (Valsartan 40 Mg Tablet) 40 mg PO BID [facility] [place]; Protocol Last Admin: 10/26/21 08:52 Dose: 40 mg Documented by: DYLAN Labs CBC & Chem 7: 10/26/21 05:36 10/26/21 05:36 Labs: Laboratory Results - last 24 hr 10/26/21 10/26/21 05:36 05:36 MCV 99.2 H MCH 32.0 MCHC 32.2 RDW 13.2 Plt Count 196 MPV 9.6 Immature Gran % (Auto) 0.3 Neut % (Auto) 57.0 Lymph % (Auto) 22.6 [place] % (Auto) 13.0 H Eos % (Auto) 6.4 H Baso % (Auto) 0.7 Lymph # (Auto) 1.4 [place] # (Auto) 0.8 Eos # (Auto) 0.4 Baso # (Auto) 0.0 Abs Immat Gran (auto) 0.02 Absolute Neuts (auto) 3.5 Absolute Nucleated RBC 0.000 Nucleated RBC % (auto) 0.0 Anion Gap 11 L Estim Creat Clear Calc 74.5 Estimated GFR > 60 Fasting Glucose 121 H Calcium 8.3 L Assessment and Plan (1) HTN (hypertension): Status: Acute Plan 76yo F POD#2 L TSA, hospitalist consult for management of comorbid medical conditions # HTN - valsartan + atenolol # asthma - inhaled fluticasone + albuterol, montelukast # anxiety - escitalopram + lorazepam # AVELINO - not on CPAP # VTE ppx - early ambulation Quality Stroke Does the patient have a stroke diagnosis?: No VTE Prior VTE?: No VTE Risk Level:: Medical - moderate - high VTE Device Contraindication: N/A - Device Ordered VTE Drug Contraindication: Treatment Not Indicated
--- NOTE | 2021-11-07 10:48 | P.OP_ITS ---
Operative Note Operative Note Date of Service: 10/24/21 Narrative: Date of Service: 10/24/21 Pre-op diagnosis: left shouder rtc arthropathy Post-op diagnosis: same Procedure: rTSA left shoulder Implants: Tornier 25/36/3Lflex/+0 centered with + 6 poly Surgeon: Maciel Delgado MD Anesthesia: GETA and local Was an Supervisor [employer] used for this Procedure?: Yes Supervisor [employer] Cleaning: Elham Mckeon Estimated blood loss (mL): 200 IV fluids (mL): 1,000 Pathology: other Condition: stable Disposition: PACU Procedure in detail: Patient was brought to the operating room and placed in the beach chair position on the surgical table. The limb was prepped and draped in standard sterile fashion and a time out was called to identify proper site, proper procedure and IV antibiotics per weight were administered. I began by making a deltopectoral incision from the coracoid to the pectoralis insertion. Blunt dissection identified the cephalic vein which was retracted laterally. Blunt dissection was taken down to the 3 sisters which were cauterized. I then made a full-thickness capsulotomy involving the subscapularis one cm medial top the insertion. This was then tagged and the arm was externally rotated and extended and the head was dislocated. A small anterior cuff release was performed and the biceps released. Once the head was well visualized a anatomic neck cut was made in approximately 132 degree angle while protecting the posterior and inferior soft tissues. A starter awl was used to identify the canal and then I broached up to a size 3 in 30 degrees of version. I then placed my head protector and turned my attention to the glenoid. Posterior anterior and superior glenoid retractors were placed and the biceps was tenotomized and labral tissue was removed. Based on the preoperative CT and templating a guide pin was placed in approximately 5 degrees of retroversion and 10 deg inferior inclination. Using a Reamer I reamed down to bleeding bone mostly inferiorly and placed the glenoid drill guide. My central screw was drilled to a depth of 20mm and a +0 25 glenoid baseplate was implanted. I then placed the proximal nonlocking and 3 locking screws circumferentially around the central screw. I then placed a provisional glenosphere. I then returned to the humerus where I trialed a 3 stem. I was satisfied with the stability of the implants in all ranges with deltoid tension also appreciated. I then placed my final glenospere with a tamp and a screwdriver. I placed a long 3 stem with a +0 tray and re-trialed poly inserts. I was most satisfied with a +6. This was placed and the shoulder reduced. I was satisfied with the range of motion and stability I irrigated copiously. Subscapularis was not repairable. I closed in a layered fashion with absorbable suture and cate and the patient was placed in a sterile dressing and an abduction sling. She was extubated brought to recovery room stable condition there were no known complications.
== END 2021-10-26 10:57 | disposition home health service (06) | DRG 483 ==
LOC: HO.SSSA 08:22 → HO.S3 13:07
PROVIDERS: Physician Assistant; Admitting Provider Orthopaedic Surgery; PCP Internal Medicine; Visit Provider Orthopaedic Surgery
PROC: 0RRK0JZ Replacement of Left Shoulder Joint with Synthetic Substitute, Open Approach (ICD-10-PCS; principal; 2021-10-24 10:00)
DX: M19.011 Primary osteoarthritis, right shoulder (principal); I10 Essential (primary) hypertension; J45.909 Unspecified asthma, uncomplicated; E66.9 Obesity, unspecified; Z68.32 Body mass index [BMI] 32.0-32.9, adult; F41.9 Anxiety disorder, unspecified; G47.33 Obstructive sleep apnea (adult) (pediatric); Z20.822 Contact with and (suspected) exposure to COVID-19; Z87.891 Personal history of nicotine dependence; Z79.51 Long term (current) use of inhaled steroids; Z79.899 Other long term (current) drug therapy
CPT/HCPCS: 36415; 73030; 80048; 85025; 86850; 86900; 86901; 87635; 87640; 87641; 88304; 88311; 97110; 97161; 97165; 97535; C1713; C1776; J0131; J0690; J1100; J1170; J2250; J2405; J3010

== ENCOUNTER → 2021-11-08 12:17 | Outpatient (BNVA) | payer MEDICARE, SELFPAY | PROVIDERS: Visit Provider Physician Assistant | DX: Z47.1 Aftercare following joint replacement surgery (principal); Z96.612 Presence of left artificial shoulder joint | CPT/HCPCS: 99212 ==

== ENCOUNTER 2021-12-06 14:07 | Outpatient (REF) | payer MEDICARE, SELFPAY ==
--- NOTE | ~2021-12-06 | XR_ITS ---
EXAMINATION: XR SHOULDER, LEFT CLINICAL INFORMATION: Pain COMPARISON: Previous x-ray September 2021 TECHNIQUE: Two views of the left shoulder. FINDINGS: There is a left shoulder replacement in satisfactory position. No fracture or dislocation or x-ray evidence of loosening is seen. There is mild arthritis at the acromioclavicular joint. Soft tissues are unremarkable. XR/XR shoulder LT min 2V IMPRESSION: Satisfactory appearance of left shoulder replacement.
== END 2021-12-06 14:08 | disposition home or self-care (01) ==
LOC: HO.HOSX 14:07
PROVIDERS: Visit Provider Physician Assistant
DX: M25.512 Pain in left shoulder (principal); M85.80 Other specified disorders of bone density and structure, unspecified site; I10 Essential (primary) hypertension; R73.03 Prediabetes; J30.1 Allergic rhinitis due to pollen; J30.89 Other allergic rhinitis; Z87.891 Personal history of nicotine dependence; Z96.612 Presence of left artificial shoulder joint; Z47.31 Aftercare following explantation of shoulder joint prosthesis
CPT/HCPCS: 73030; 99212

== ENCOUNTER 2022-01-05 14:46 | Emergency (ER) | payer MEDICARE, SELFPAY ==
--- NOTE | ~2022-01-05 | CT_ITS ---
EXAMINATION: CT cervical spine wo con, CT facial bones wo con, CT head/brain wo con INDICATION INFORMATION: Reason for Exam fall, pain COMPARISON: Thyroid ultrasound 05/26/2019 TECHNIQUE: Separate noncontrast CT examinations of the head, face and cervical spine were performed. Coronal and sagittal images were created for each examination at the technologist workstation. This CT examination was performed using dose optimization techniques as appropriate, variously including the following: *Automated exposure control *Adjustment of mA and/or kV according to patient size (this includes techniques or standardized protocols for targeted exams where dose is matched to indication/reason for exam; i.e. extremities or head) *Use of iterative reconstruction technique DLP: 1451 mGy-cm FINDINGS: Head: No appreciable calvarial fracture. There is no evidence of acute intracranial hemorrhage or territorial infarction. No abnormal mass effect or midline shift is seen. Daigle to white matter differentiation is well preserved. No extra-axial fluid collections are identified. No hydrocephalus. Proportional prominence of the ventricles and sulcal spaces is consistent with mild volume loss. Patchy periventricular and deep white matter hypoattenuation is consistent with moderate small vessel ischemic changes. Facial Bones: Prefrontal and paranasal soft tissue swelling with comminuted and displaced right and mildly displaced left nasal bone fractures. The paranasal sinuses are well aerated. Periapical lucency involving the left maxillary incisor. Status post bilateral lens replacements. Cervical spine: There is no evidence of acute cervical spine fracture. Vertebral bodies remain normal in height. Loss of the usual cervical spine lordosis. Multilevel loss of disc space height. No pre- or paravertebral soft tissue abnormality is identified. Visualized portions of the lung apices are unremarkable. Heterogeneous multinodular thyroid gland with a 2.4 cm left thyroid nodule. CT/CT cervical spine wo con IMPRESSION: 1. Prefrontal and paranasal soft tissue swelling with comminuted and displaced right and mildly displaced left nasal bone fractures. 2. Periapical lucency involving the left maxillary incisor which could reflect periodontal disease versus traumatic loosening, recommend correlation with direct inspection. 3. No cervical spine fracture. Loss of usual cervical lordosis which may be due to positioning or muscle spasm. 4. No acute intracranial abnormality. 5. Heterogeneous multinodular thyroid with a 2.4 cm left thyroid nodule, better characterized on prior thyroid ultrasound.
[2022-01-05 14:49] VITALS: BP 157/96; PULSE 70; RESP 18; TEMP 36.6; O2SAT 97; BMI 32.3
--- NOTE | 2022-01-05 15:14 | ED_ITS ---
HPI - Fall General Chief Complaint: Fall Stated Complaint: fall - facial swelling Time Seen by Provider: 01/05/22 15:06 Source: patient Mode of arrival: ambulatory Limitations: no limitations History of Present Illness HPI Narrative: 76 yo female with history of anxiety, asthma, depression, hypertension, prediabetes here with reports of fall. Patient tells me she tripped and fell, falling outside landing on her face on the dirt ground. She denies loss of consciousness. She does have some some neck pain. No nausea, vomiting, dizziness, vision changes, weakness, numbness, tingling of the upper extremities. No anticoagulation use. Tetanus UTD. Patient does report some nasal pain and had a nose bleed prior to arrival. Related Data Home Medications Medication Instructions Recorded Confirmed albuterol sulfate 90 mcg/actuation 2 puff inhalation Q6H PRN 05/18/20 10/17/21 aerosol inhaler (ProAir HFA) Shortness Of Breath Or Wheezing cetirizine 10 mg capsule (Zyrtec) 10 mg PO DAILY 05/18/20 10/17/21 fluticasone propionate 110 1 puff inhalation BID PRN 05/18/20 10/17/21 mcg/actuation HFA aerosol inhaler Shortness Of Breath Or Wheezing (Flovent HFA) multivitamin 1 tab PO DAILY 03/28/21 10/17/21 betamethasone dipropionate 0.05 % 1 appl topical BID PRN Rash 09/19/21 10/17/21 topical cream docusate sodium 100 mg capsule 100 mg PO BEDTIME PRN Constipation 09/19/21 10/17/21 (Colace) famotidine 20 mg tablet 20 mg PO BEDTIME 09/19/21 10/17/21 fluticasone propionate 50 1 spray intranasal DAILY 09/19/21 10/17/21 mcg/actuation nasal spray,suspension (Flonase Allergy Relief) magnesium 250 mg tablet 250 mg PO BEDTIME 09/19/21 10/17/21 montelukast 10 mg tablet 10 mg PO BEDTIME 09/19/21 10/17/21 hydrocortisone 2.5 % topical 1 appl topical DAILY PRN Rash 10/24/21 10/24/21 ointment Previous Rx's Medication Instructions Recorded escitalopram oxalate 20 mg tablet 20 mg PO DAILY 90 days #90 tabs 01/28/22 atenolol 25 mg tablet 25 mg PO DAILY 30 days #90 tabs 10/01/21 valsartan 40 mg tablet 40 mg PO BID 90 days #180 tabs 10/17/21 acetaminophen 325 mg tablet 650 mg PO Q6H PRN Pain, Mild (Pain 10/26/21 Scale 1-3) 30 days #240 tabs docusate sodium 100 mg capsule 100 mg PO BID 30 days #60 caps 10/26/21 oxycodone 5 mg tablet 5 mg PO Q4H PRN Pain, Moderate 11/05/21 (Pain Scale 4-6 7 days #42 tabs celecoxib 200 mg capsule 200 mg PO BID 30 days #60 caps 12/06/21 lorazepam 1 mg tablet 1 mg PO BEDTIME 30 days #30 tabs 12/21/21 Allergies Allergy/AdvReac Type Severity Reaction Status Date / Time hay fever Allergy Unknown Unknown Uncoded 01/05/22 14:54 multiple environmental Allergy Unknown Unknown Uncoded 01/05/22 14:54 allergi Review of Systems Review of Systems: Yes all other systems are reviewed and are negative Constitutional: Constitutional: Reports no additional constitutional complaints, Denies body ache(s), Denies chills, Denies fever(s), Denies headache(s) and Denies weakness Eyes: Eyes: Reports no additional eye complaints and Denies change in vision ENT: Reports system reviewed and no additional complaints, except as documented, Denies dizziness, Denies headache(s), Denies nasal congestion, Denies nasal discharge and Reports neck pain Cardiovascular: Cardiovascular: Reports no additional cardiovascular complaints, Denies chest pain, Denies leg edema and Denies dyspnea Respiratory: Respiratory: Reports no additional respiratory complaints, Denies cough and Denies dyspnea Gastrointestinal: Gastrointestinal: Reports no additional gastrointestinal complaints, Denies abdominal pain, Denies diarrhea, Denies nausea and Denies vomiting Genitourinary: Genitourinary: Reports no additional female genitourinary complaints and Denies urinary incontinence Musculoskeletal: Musculoskeletal: Reports no additional musculoskeletal complaints, Denies back pain, Denies arthralgias, Denies joint swelling, Reports neck pain, Denies numbness and Denies tingling Integumentary/Breasts: Skin/Breast: Reports system reviewed and no additional complaints, except as docu and Denies rash Neurologic: Reports system reviewed and no additional complaints, except as documented, Denies Abnormal speech present, Denies dizziness, Denies headache(s), Denies numbness, Denies tingling and Denies weakness PMFSH Past Medical History Attestation statement: The following information was validated with the patient. Source: old records reviewed and nursing notes reviewed Medical History Anxiety Asthma Axillary nerve injury Borderline high cholesterol Dyspepsia Eczema Greater tuberosity of humerus fracture HTN (hypertension) HTN (hypertension) Hx of fracture of humerus Injury of axillary nerve, left arm, initial encounter Insomnia Neuropathy AVELINO (obstructive sleep apnea) Osteopenia Pain management Prediabetes Surgical History H/O partial thyroidectomy History of back surgery History of bunionectomy of both great toes History of tonsillectomy Family History Family History Mother Dementia DDD (degenerative disc disease) Aortic valve disorder Osteoporosis Myelodysplastic syndrome Father Hypertension Parkinsons Depression Brother Hypertension History of hip replacement History of shoulder replacement Sister Multiple sclerosis H/O removal of cyst Sister Scoliosis H/O removal of cyst Sister Hypertension DDD (degenerative disc disease) Scoliosis Social History Social History Housing: House Are you a primary pediatric care coordinator to a significant other at home: No Do you presently have visiting nurse or other home services: No Patient Tobacco Use Status: Former Tobacco user Quit Date: Tobacco use type: Cigarette Years Smoked: 25 Substance Use Type: Marijuana Advance Directives: No Advance Directives Information Provided: No service: No Current occupational status: retired 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 Physical Exam Vital Signs: Vital Signs: Last Vital Signs Temp 98.1 F 01/05/22 16:54 Pulse 57 01/05/22 16:54 Resp 18 01/05/22 16:54 BP 167/86 H 01/05/22 16:54 Pulse Ox 97 01/05/22 16:54 O2 Del Method 01/05/22 16:54 BMI result Body Mass Index 32.3 Const: General: cooperative, healthy appearing, comfortable and no acute distress Orientation/consciousness: patient oriented x3 Limitations: no limitations HEENT: Other: No trismus Patient denies any loose teeth. No mandibular pain. Head: Yes normal to inspection, No Jones's sign and No raccoon eyes Ears: hearing grossly normal bilaterally and TM's normal bilaterally General nose exam: Normal external nose present, Normal septum present, Abnormal external nose present (Swelling over the bridge of the nose with abrasion. Ecchymosis. Tendernes) and Other nasal findings present (Dried blood noted at the nares. No active bleeding. No septal hematoma) Nose image: 1. Ecchymosis and tenderness. No instability Face and sinus: Yes normal facial exam and Yes face symmetric Mouth: Normal oral and palatal mucosa present, lip normal, tongue normal and No abnormal TMJ Teeth and gingiva: dentition normal Throat: Yes posterior oropharynx normal, Yes tonsils normal and Yes uvula midline Eyes: General: appearance normal, both eyes and all related structures P upils: Equal, round and reactive pupils present Neck: Other: There is cervical midline tenderness with no step-offs deformities. Pain is worsened with flexion and extension of the spine Neck: Yes normal visual inspection Chest: Chest palpation & inspection: normal inspection of the chest Resp: Effort & Inspection: normal respiratory effort Auscultation: clear to auscultation bilaterally Cardio: Rate: regular rate Rhythm: regular rhythm Peripheral pulses: Peripheral pulses 2+ throughout GI: Inspection: Yes normal to inspection Palpation (GI): Soft to palpation and nontender Auscultation: normal bowel sounds Back/Spine/Pelvis: Thoracic/Lumbar Spine: thoracic and lumbar spine normal to inspection Skin: General skin exam: no rashes or lesions noted Neuro: General: patient oriented x3, no focal motor deficits and normal sensation to monofilament Cranial nerves: Yes CN's II-XII intact bilaterally, Yes Equal, round and reactive pupils present, Yes Bilaterally intact EOM present, Yes Nystagmus not present, Yes Normal facial strength present and Yes Midline tongue present Cognition (Neuro): normal cognition Speech: No Abnormal speech present Gait exam (Neuro): Normal gait present Motor exam (neuro): 5/5 motor strength present throughout Sensory Exam: Normal double simultaneous stimulation for sensation Extrem: General: Yes normal to inspection Course Course Course Narrative: 76-year-old female here with facial pain and neck pain after mechanical fall. Patient was immediate placed in a cervical collar. Will need imaging of cervical spine and facial bones. D/t age will also obtain CT head. Will obtain CT head, CT facial bones and CT cervical spine Reevaluation(s) Reevaluation #1: CT head/facial bones/cervical spine IMPRESSION: ? 1.? Prefrontal and paranasal soft tissue swelling with comminuted and displaced right and mildly displaced left nasal bone fractures. ? 2.? Periapical lucency involving the left maxillary incisor which could reflect periodontal disease versus traumatic loosening, recommend correlation with direct inspection. ? 3.? No cervical spine fracture. Loss of usual cervical lordosis which may be due to positioning or muscle spasm. ? 4.? No acute intracranial abnormality. ? 5.? Heterogeneous multinodular thyroid with a 2.4 cm left thyroid nodule, better characterized on prior thyroid ultrasound. -During exam patient reported NO loose teeth. Thyroid is seen on previous US and patient is aware of this. Will recommend ice to the area, motrin/apap as needed. She may f/u with ENT outpatient for the nasal fractures. Wound care for abrasions provided by nursing staff. Reviewed worrisome signs/symptoms with patient and when to return to the ED. Comfortable with discharge home. Time: 15:30 MDM - Fall MDM Narrative Medical decision making narrative: facial fracture, ICH, cervical fracture vs strain Medical Records Attestation: I reviewed the patient's medical records. Lab Data Attestation: I reviewed the patient's lab results. Imaging Data CT head/facial bones/cervical spine: Attestation: I personally reviewed and interpreted this imaging study as follows: Radiologist's impression: FINDINGS: Head: No appreciable calvarial fracture. There is no evidence of acute intracranial hemorrhage or territorial infarction. No abnormal mass effect or midline shift is seen. Daigle to white matter differentiation is well preserved. No extra-axial fluid collections are identified. No hydrocephalus. Proportional prominence of the ventricles and sulcal spaces is consistent with mild volume loss. Patchy periventricular and deep white matter hypoattenuation is consistent with moderate small vessel ischemic changes. Facial Bones: Prefrontal and paranasal soft tissue swelling with comminuted and displaced right and mildly displaced left nasal bone fractures. The paranasal sinuses are well aerated. Periapical lucency involving the left maxillary incisor. Status post bilateral lens replacements. Cervical spine: There is no evidence of acute cervical spine fracture. Vertebral bodies remain normal in height.? ? Loss of the usual cervical spine lordosis. Multilevel loss of disc space height. No pre- or paravertebral soft tissue abnormality is identified.? Visualized portions of the lung apices are unremarkable. Heterogeneous multinodular thyroid gland with a 2.[address] left thyroid nodule. CT/CT head/brain wo con IMPRESSION: ? 1.? Prefrontal and paranasal soft tissue swelling with comminuted and displaced right and mildly displaced left nasal bone fractures. ? 2.? Periapical lucency involving the left maxillary incisor which could reflect periodontal disease versus traumatic loosening, recommend correlation with direct inspection. ? 3.? No cervical spine fracture. Loss of usual cervical lordosis which may be due to positioning or muscle spasm. ? 4.? No acute intracranial abnormality. ? 5.? Heterogeneous multinodular thyroid with a 2.4 cm left thyroid nodule, better characterized on prior thyroid ultrasound. Discharge Plan Discharge Clinical Impression: Closed fracture nasal bone, Abrasion of face Patient Disposition: Home, Self-Care Instructions: Nasal Fracture (ED), Abrasion (ED) Additional Instructions: X-ray show nasal fracture Scans of your head and neck are normal You may take Tylenol or Motrin for pain if able as needed Ice to the area Follow-up with your primary care doctor and ear nose and throat Return for any worsening headache or neck pain, vision changes, vomiting, dizziness, chest pain, abdominal pain, weakness/sensation change in the upper extremities. Prescriptions: No Action atenolol 25 mg tablet 25 mg PO DAILY 30 Days Qty: 90 0RF oxycodone 5 mg tablet 5 mg PO Q4H PRN (Reason: Pain, Moderate (Pain Scale 4-6) 7 Days Qty: 42 0RF lorazepam 1 mg tablet 1 mg PO BEDTIME 30 Days Qty: 30 0RF multivitamin Tablet 1 tab PO DAILY betamethasone dipropionate 0.05 % Cream 1 appl TOPICAL BID PRN (Reason: Rash) docusate sodium [Colace] 100 mg Capsule 100 mg PO BEDTIME PRN (Reason: Constipation) magnesium 250 mg Tablet 250 mg PO BEDTIME famotidine 20 mg tablet 20 mg PO BEDTIME montelukast 10 mg tablet 10 mg PO BEDTIME fluticasone propionate [Flonase Allergy Relief] 50 mcg/actuation spray,suspension 1 spray intranasal DAILY Rx Instructions: administer into each nostril hydrocortisone 2.5 % ointment 1 appl topical DAILY PRN (Reason: Rash) acetaminophen 325 mg Tablet 650 mg PO Q6H PRN (Reason: Pain, Mild (Pain Scale 1-3)) 30 Days Qty: 240 0RF docusate sodium 100 mg Capsule 100 mg PO BID 30 Days Qty: 60 0RF valsartan 40 mg tablet 40 mg PO BID 90 Days Qty: 180 0RF escitalopram oxalate 20 mg tablet 20 mg PO DAILY 90 Days Qty: 90 3RF Zyrtec 10 mg capsule 10 mg PO DAILY Flovent HFA 110 mcg/actuation HFA aerosol inhaler 1 puff inhalation BID PRN (Reason: Shortness Of Breath Or Wheezing) albuterol sulfate [ProAir HFA] 90 mcg/actuation HFA aerosol inhaler 2 puff inhalation Q6H PRN (Reason: Shortness Of Breath Or Wheezing) celecoxib 200 mg capsule 200 mg PO BID 30 Days Qty: 60 0RF Referrals: Jordan Nj MD [Primary Care Provider] - 1 week Brian Meyer [Physician] - 1 week
--- NOTE | 2022-01-05 16:31 | PC.NURSE ---
PT WALKING AROUND ROOM WITH COLLAR ON, PT ENCOURAGED TO LAY ON STRETCHER UNTIL RESULTS COME BACK FROM CT SCAN. PT ASKING TO REMOVE COLLAR, PT INFORMED WE NEED TO KEEP COLLAR ON AT THIS TIME UNTIL CT RESULTS COME BACK DUE TO NECK PAIN.
[2022-01-05 16:54] VITALS: BP 167/86; PULSE 57; RESP 18; TEMP 36.7; O2SAT 97
== END 2022-01-05 17:55 | disposition home or self-care (01) ==
PROVIDERS: Emergency Provider Internal Medicine; PCP Internal Medicine
DX: S02.2XXA Fracture of nasal bones, initial encounter for closed fracture (principal); S00.81XA Abrasion of other part of head, initial encounter; W01.198A Fall on same level from slipping, tripping and stumbling with subsequent striking against other object, initial encounter; F10.20 Alcohol dependence, uncomplicated; Y93.01 Activity, walking, marching and hiking; Y92.096 Garden or yard of other non-institutional residence as the place of occurrence of the external cause; Y99.9 Unspecified external cause status
CPT/HCPCS: 70450; 70486; 72125; 99283; 99284

== ENCOUNTER 2022-02-07 11:46 | Outpatient (REF) | payer MEDICARE, SELFPAY ==
--- NOTE | ~2022-02-07 | XR_ITS ---
EXAMINATION: XR SHOULDER, LEFT CLINICAL INFORMATION: Left shoulder pain COMPARISON: December 06, 2021 and October 25, 2021 TECHNIQUE: 2 views of of the left shoulder. FINDINGS: Patient status post left shoulder replacement with glenoid and humeral prosthetic components in good position without evidence of hardware fracture or loosening. XR/XR shoulder LT min 2V IMPRESSION: Stable appearance of left shoulder replacement.
== END 2022-02-07 11:47 | disposition home or self-care (01) ==
LOC: HO.HOSX 11:46
PROVIDERS: Visit Provider Orthopaedic Surgery
DX: M25.511 Pain in right shoulder (principal); M25.512 Pain in left shoulder
CPT/HCPCS: 73030

== ENCOUNTER 2022-04-08 13:00 | Outpatient (RCR) | payer MEDICARE, SELFPAY ==
--- NOTE | 2021-11-08 13:46 | MHC.PT.EP ---
[facility] [place] [facility] [place] [facility] [place] [facility] [address] Liya Morfin [address] [phone] F: [phone] F: [phone] F: [phone] F: [phone] Physical Therapy Plan of Care Date of Evaluation: Date of Surgery: 10/24/21 Diagnosis: L rTSA on 10/24/21 Assessment: pt presents to this physical therapy evaluation done in the orthopedic office s/p L rTSA performed on 10/24/21. pt presents to physical therapy with pain, decreased range of motion, decreased strength, impaired functional mobility, impaired postural awareness, and gait deviations. pt is a good candidate for skilled PT due to age, potential remediation of impairments, typical disease/condition progression and prognosis, comorbidities, and motivation. pt would benefit from tailored strengthening and stretching exercise program, functional training, gait training, postural re-training, neuromuscular re-education, modalities as needed for pain, equipment safety demonstration. Frequency and Duration: The patient will be seen 2x/wk for 12 wks Short Term Goals: pt will be I w/ HEP to promote self-management of post-operative state. pt will be I w/ donning/doffing sling while maintaining precautions to promote independence w/ bathing. pt will improve L shoulder flexion and scaption PROM to at least 90* to progress protocol and prevent loss of ROM. Assisted Goals: pt will report a statistically significant improvement in self-reported outcome measure, SPADI, to promote return to PLOF. pt will demo at least 4/5 flexion and abduction strength to promote ease in reaching for objects on higher shelves for meal prep. 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 Treatment Plan: Modalities to reduce pain, spasms and effusion. Manual therapy to restore motion and function. Therapeutic exercise to improve strength and flexibility. Neuromuscular re-education for posture and balance. Therapeutic activities to return to functional activities of daily living. Electronically signed by: Guillermina Anthony PT, DPT Please sign and return to therapist. Thank you for your referral.
--- NOTE | 2022-06-07 10:23 | MHC.PT.DC ---
[facility] [place] [facility] [place] [facility] [place] [facility] [address] Liya Morfin [address] [phone] F: [phone] F: [phone] F: [phone] F: [phone] Physical Therapy Discharge Report Diagnosis: L rTSA on 10/24/21 Date of Surgery: 10/24/21 Date of Evaluation: 11/08/21 Date of Discharge: 06/07/22 Treatments to Date: 24 Cancellations to Date: 0 No Shows to Date: 0 Discharge Status: Improved Function Independent with HEP Discharge Summary: Pt called to self d/c to I HEP. She has made good progress with ROM, strength, and is I with HEP. Electronically signed by: Iman Naik PT Please sign and return to therapist. Thank you for your referral.
== END 2022-06-07 10:25 | disposition home or self-care (01) ==
LOC: HO.PTCHIC 13:00
PROVIDERS: Visit Provider Physician Assistant
DX: S42.253D Displaced fracture of greater tuberosity of unspecified humerus, subsequent encounter for fracture with routine healing (principal)
CPT/HCPCS: 97110; 97112; 97140; 97162; 97530

== ENCOUNTER → 2022-05-27 13:33 | Outpatient (BNVA) | payer MEDICARE, SELFPAY | PROVIDERS: PCP Internal Medicine; Visit Provider Internal Medicine | DX: E04.2 Nontoxic multinodular goiter (principal) | CPT/HCPCS: 99202 ==

== ENCOUNTER 2022-06-11 14:59 | Outpatient (REF) | payer MEDICARE, SELFPAY ==
--- NOTE | ~2022-06-11 | US_ITS ---
EXAMINATION: US THYROID CLINICAL INFORMATION: Nontoxic multinodular goiter. COMPARISON: Ultrasound soft tissue head/neck thyroid dated 05/26/2019. TECHNIQUE: Linear transducer grayscale and color Doppler examination with attention to the region of the thyroid. FINDINGS: SIZE: Measurements of the solitary left thyroid lobe and nodules are given in sagittal, anteroposterior and transverse dimensions respectively. Right Thyroid Lobe: Surgically absent. No abnormal mass or fluid collection is seen within the former right thyroid bed. Left Thyroid Lobe: 6.4 x 2.4 x 2.7 cm, volume 22.3 mL. Previously 5.5 x 2.0 x 2.5 cm, volume 14.4 mL. Parenchyma: The gland echotexture is heterogeneous. Thyroid vascularity is increased. Isthmus: 0.24 cm in maximum AP dimension. Previously 0.30 cm. Estimated total number of nodules greater than or equal to 1 cm: 2. 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 Location: Left superior. Size: 0.93 x 0.70 x 0.83 cm, volume 0.30 mL. Previously: 0.95 x 0.65 x 0.82 cm, volume 0.26 mL. Nodule characteristics: Composition: Solid (2). Echogenicity: Hypoechoic (2). Shape: Not taller than wide (0). Margins: Smooth (0). Echogenic Foci: None (0). ACR TI-RADS total points: 4 ACR TI-RADS category: 4 Significant change in size (>/= 20% in 2 dimensions and minimal increase of 2 mm or 50% or greater increase in volume): No Change in features: No Change in ACR TI-RADS risk category: No 2. Location: Left mid. Size: 1.1 x 0.85 x 0.83 cm, volume 0.40 mL. Previously: 1.7 x 0.94 x 0.65 cm, volume 0.54 mL. Nodule characteristics: Composition: Spongiform (0). Echogenicity: Anechoic (0). Shape: Not taller than wide (0). Margins: Smooth (0). Echogenic Foci: None (0). ACR TI-RADS total points: 0 ACR TI-RADS category: 1 Significant change in size (>/= 20% in 2 dimensions and minimal increase of 2 mm or 50% or greater increase in volume): No Change in features: No Change in ACR TI-RADS risk category: No 3. Location: Left mid/inferior. Size: 3.4 x 2.5 x 3.1 cm, volume 13.3 mL. Previously: 3.4 x 2.3 x 2.6 cm, volume 10.6 mL. Nodule characteristics: Composition: Solid/almost completely solid (2). Echogenicity: Hypoechoic (2). Shape: Not taller than wide (0). Margins: Smooth (0). Echogenic Foci: Macrocalcifications (1). ACR TI-RADS total points: 5 ACR TI-RADS category: 4 Significant change in size (>/= 20% in 2 dimensions and minimal increase of 2 mm or 50% or greater increase in volume): No Change in features: No Change in ACR TI-RADS risk category: No NODES: At the right level 2, a 1.6 x 4.2 x 0.7 cm reniform lymph node is seen, showing faint corticomedullary differentiation and a vascular pedicle. This is a stable to diminished from prior ultrasound dimensions of 2.5 x 0.3 x 0.6 cm. No sizable lymphadenopathy is noted. US/US thyroid IMPRESSION: 1. The right thyroid lobe is surgically absent. No abnormal mass or fluid collection is noted within the former right thyroid bed. 2. There are multiple left thyroid lobe nodules, as detailed. The 3.4 cm maximal diameter right thyroid lobe nodule shows mild interim increase in is amenable to ultrasound-guided biopsy, if clinically indicated and not artifact performed. 3. A stable to diminished shotty, nonpathologically enlarged right cervical lymph nodes noted. No sizable lymphadenopathy is seen. ACR TI-RADS RECOMMENDATION REFERENCE: Ultrasound-guided fine-needle aspiration, followup ultrasound, no further follow up. * TR1 (0 point) and TR 2 (2 points): No FNA or follow up * TR3 (3 points): FNA if more than or equal to 2.5 cm in maximum dimension, followup ultrasound in 1, 3 and 5 years if 1.5 to 2.4 cm in maximum dimension. * TR4 (4-6 points): FNA if more than or equal to 1.5 cm in maximum dimension, followup ultrasound in 1, 2, 3 and 5 years if 1 to 1.4 cm in maximum dimension. * TR5 (more than or equal to 7 points): FNA if more than or equal to 1 cm in maximum dimension, followup ultrasound every year for 5 years if 0.5 to 0.9 cm in maximum dimension. * TR3, TR4 or TR5 nodules that are below the size threshold for follow up receive no follow up.
== END 2022-06-11 15:00 | disposition home or self-care (01) ==
LOC: HO.HMGCX 14:59
PROVIDERS: PCP Internal Medicine; Visit Provider Internal Medicine
DX: E04.2 Nontoxic multinodular goiter (principal)
CPT/HCPCS: 76536

== ENCOUNTER 2022-06-19 09:44 | Outpatient (REF) | payer MEDICARE, SELFPAY ==
[2022-06-19 11:16] LABS: MANUAL DIFF FLAG NO
[2022-06-19 11:32] LABS: Basophils Absolute Auto 0.1 X10*3/uL (0.0-0.2); Basophils Percent Auto 1.3 % (0-2); Eosinophils Absolute Auto 0.2 X10*3/uL (0.0-0.4); Eosinophils Percent Auto 5.3 % (0-4); Hematocrit 42.7 % (37.0-47.0); Hemoglobin 13.4 g/dl (12.0-16.0); Imm Gran Abs Auto 0.01 X10*3/uL (0.00-0.03); Imm Gran Pct Auto 0.2 % (0.0-0.4); Lymphocytes Absolute Auto 1.5 X10*3/uL (1.2-4.9); Lymphocytes Percent Auto 33.1 % (20-40); Mean Corpuscular HGB Conc 31.4 g/dl (31.0-35.0); Mean Corpuscular Volume 95.7 fL (80.0-98.0); Mean Platelet Volume 9.7 fL (9.4-12.3); Monocytes Absolute Auto 0.5 X10*3/uL (0.1-1.2); Monocytes Percent Auto 10.6 % (2-11); Neutrophils Absolute Auto 2.2 x10*3/uL (2.0-8.3); Neutrophils Percent Auto 49.5 % (45-73); Platelet Count 257 X10*3/uL (160-400); Red Blood Count 4.46 X10*6/uL (4.20-5.50); Red Cell Distribution Width 13.9 % (11.0-16.0); White Blood Count 4.5 X10*3/uL (4.8-10.8)
[2022-06-19 11:45] LABS: Estimated Average Glucose 108 mg/dL; Hemoglobin A1c % 5.4 %
[2022-06-19 12:04] LABS: Alanine Aminotransferase 21 U/L (0-31); Albumin Level 4.3 g/dL (3.5-5.0); Alkaline Phosphatase 85 U/L (39-117); Anion Gap 14 (12-20); Aspartate Amino Transferase 25 U/L (5-31); Bilirubin Total 0.6 mg/dL (0.0-1.0); Blood Urea Nitrogen 18 mg/dL (9-16); Calcium 9.4 mg/dL (8.4-10.2); Carbon Dioxide 28 mmol/L (22-29); Chloride 106 mmol/L (96-108); Cholesterol 232 mg/dL; Estimated Glomerular Filt Rate 56; Glucose Fasting 99 mg/dL (60-99); HDL Cholesterol 70 mg/dL; LDL Cholesterol Calculated 146 mg/dl; Potassium 4.2 mmol/L (3.3-5.1); Sodium 144 mmol/L (135-145); TSH reflex Free T4 1.75 uIU/mL (0.32-4.0); Triglycerides 84 mg/dL
[2022-06-19 12:07] LABS: Free T4 (Free Thyroxine) 0.84 ng/dL (0.71-1.85); Thyroid Stimulating Hormone 1.68 uIU/mL (0.32-4.0)
== END 2022-06-19 09:45 | disposition home or self-care (01) ==
LOC: HO.HMGCLDS 09:44
PROVIDERS: Absent Provider Internal Medicine; PCP Internal Medicine; Visit Provider Internal Medicine
DX: F10.20 Alcohol dependence, uncomplicated (principal); F33.9 Major depressive disorder, recurrent, unspecified; F41.1 Generalized anxiety disorder; J45.40 Moderate persistent asthma, uncomplicated; R10.13 Epigastric pain; E04.2 Nontoxic multinodular goiter; Z88.9 Allergy status to unspecified drugs, medicaments and biological substances
CPT/HCPCS: 36415; 80053; 80061; 83036; 84439; 84443; 85025

== ENCOUNTER 2022-06-26 11:37 | Outpatient (REF) | payer MEDICARE, SELFPAY ==
[2022-07-03 15:34] LABS: Vitamin D 25-OH, D2 <4 ng/mL; Vitamin D 25-OH, D3 35 ng/mL; Vitamin D 25-OH, Total 35 ng/mL (30-100)
== END 2022-06-26 11:38 | disposition home or self-care (01) ==
LOC: HO.HMGCLDS 11:37
PROVIDERS: PCP Internal Medicine; Visit Provider Internal Medicine
DX: E55.9 Vitamin D deficiency, unspecified (principal)
CPT/HCPCS: 36415; 82306

== ENCOUNTER 2022-09-05 09:56 | Outpatient (REF) | payer MEDICARE, SELFPAY ==
--- NOTE | 2022-09-05 10:40 | P.BOP_ITS ---
Brief Operative Note Date of Service: 09/05/22 Pre-op diagnosis: Multinodular Thyroid Procedure: This is doctor Rupinder Hernandez. This is an ultrasound-guided fine-needle aspiration report. Date of Examination: Indication: Multinodular Thyroid Porcedure: Procedure was explained to the patient. Alternatives, the risk and benefits were discussed. Written consent was obtained. A time-out was also obtained. After sterile preparation, fine-needle aspiration of a left mid pole 3.4 cm thyroid nodule was performed using direct ultrasound guidance to confirm accurate needle placement. Three aspirations were made using 27 gauge needles. Samples were submitted for cytology. 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 Our attention was then turned to the left mid pole 1.1 cm thyroid nodule. Fine- needle aspiration of this nodule was performed using direct ultrasound guidance to confirm accurate needle placement. Four aspirations were made using 27 gauge needles. Samples were submitted for cytology. 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 The patient tolerated the procedure well. Aftercare instructions were provided. Impression: Uncomplicated fine needle aspiration biopsy of a left mid pole 3.4 cm thyroid nodule and a left mid pole 1.1 cm thyroid nodule under ultrasound guidance. Surgeon: Ruipnder Hernandez, DO Was an Banquet Houseperson used for this Procedure?: No Estimated blood loss (mL): 0
[2022-09-05] MEDS: Lidocaine HCl 1 % MPF 5 ML VIAL SUBCUT (10:50)
== END 2022-09-05 09:57 | disposition home or self-care (01) ==
LOC: HO.US 09:56
PROVIDERS: Visit Provider Internal Medicine
DX: E04.2 Nontoxic multinodular goiter (principal)
CPT/HCPCS: 10005; 10006; 88172; 88173; 88177; 88305

== ENCOUNTER → 2022-12-02 13:21 | Outpatient (BNVA) | payer MEDICARE, SELFPAY | PROVIDERS: PCP Internal Medicine; Visit Provider Internal Medicine | DX: E04.2 Nontoxic multinodular goiter (principal) | CPT/HCPCS: 99212 ==

== ENCOUNTER 2023-02-10 09:44 | Outpatient (AMB) | payer MEDICARE, SELFPAY ==
--- NOTE | 2023-02-10 10:51 | MHC.OFFWIV ---
Intake Vital Signs 02/10/23 10:54 BP 120/82 Blood Pressure Location Lt brachial Position Sitting Pulse 56 Pulse Source Pulse Oximeter Temp 97.9 F Temp Source Temporal Artery Scan Pulse Oximetry (%) 97 Oxygen Delivery Method Room Air Intake Visit Reasons: EP Heat Rash all over (lobby) Intake Note: Patient here for rash all over face and in between breasts. she states it will flare up more when she goes outside. Patient Tobacco Use Status: Former Tobacco user Quit Date: Allergies hay fever Allergy (Unknown, Uncoded 02/10/23 10:54) Unknown multiple environmental allergi Allergy (Unknown, Uncoded 02/10/23 10:54) Unknown Do you need a note to return to daycare/school/sports/work: No HPI EP Heat Rash all over (lobby) HPI Details 77-year-old female presents to the office for a sick visit. Patient reports a rash on her face and chest. Symptoms started 2 days ago. She was gardening when symptoms began. [facility]LY [facility] Medical History Anxiety Asthma Axillary nerve injury Borderline high cholesterol Dyspepsia Eczema Greater tuberosity of humerus fracture HTN (hypertension) HTN (hypertension) Hx of fracture of humerus Injury of axillary nerve, left arm, initial encounter Insomnia Multinodular thyroid Neuropathy AVELINO (obstructive sleep apnea) Osteopenia Pain management Prediabetes Surgical History H/O partial thyroidectomy History of back surgery History of bunionectomy of both great toes History of dental surgery History of left shoulder replacement History of tonsillectomy Family History Mother Dementia DDD (degenerative disc disease) Aortic valve disorder Osteoporosis Myelodysplastic syndrome Father Hypertension Parkinsons Depression Brother Hypertension History of hip replacement History of shoulder replacement Sister Multiple sclerosis H/O removal of cyst Sister Scoliosis H/O removal of cyst Sister Hypertension DDD (degenerative disc disease) Scoliosis Social History Housing: House Are you a primary health care marketing manager to a significant other at home: No Do you presently have visiting nurse or other home services: No Alcohol intake: current Alcohol intake frequency: a few times a month Patient Tobacco Use Status: Former Tobacco user Quit Date: Tobacco use type: Cigarette Years Smoked: 25 e-Cigarette/Vaping Use: Never Used Substance Use Type: Marijuana service: No Current occupational status: retired 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 Cognitive needs: No Hearing needs: No Vision needs: No Physical Exam Vital Signs: Last Vital Signs Temp 97.9 F 02/10/23 10:54 Pulse 56 02/10/23 10:54 BP 120/82 02/10/23 10:54 Pulse Ox 97 02/10/23 10:54 Oxygen Delivery Method Room Air 02/10/23 10:54 Skin Other: Erythematous rash over the face, chest. No vesicles or pustules. Assessment & Plan Assessment & Plan (1) Contact dermatitis: Code(s): L25.9 - Unspecified contact dermatitis, unspecified cause Plan: Tapering dose of prednisone prescribed. If symptoms do not improve to follow-up here. Medications: New prednisone 6 pills by mouth day 1, 6 pills by mouth day 2, 5 pills by mouth day 3, 4 pills by mouth day 4, 3 pills by mouth day 5, 2 pills by mouth day 6, 1 pill by mouth day 7 and 1 pill by mouth day 8. 10 mg PO DAILY 28 tabs 0RF hydrocortisone 2.5% 1 appl topical BID PRN 20 grams 0RF skin irritation Discontinued prednisone Discontinued Reason: Doctor's Order 40 mg (2 x 20 mg) PO DAILY 8 tabs 0RF 4 days L50.8 - Other urticaria Coding Level of Care Code Est Pt Level 3 (59559) Diagnoses Contact dermatitis L25.9
[2023-02-10 10:54] VITALS: BP 120/82; PULSE 56; TEMP 36.6; O2SAT 97
== END 2023-02-10 11:32 | disposition home or self-care (01) ==
PROVIDERS: PCP Internal Medicine; Visit Provider Internal Medicine
DX: L25.9 Unspecified contact dermatitis, unspecified cause (principal)
CPT/HCPCS: 99213

== ENCOUNTER 2023-02-12 12:02 | Outpatient (AMB) | payer MEDICARE, SELFPAY ==
[2023-02-12 13:25] VITALS: BP 140/88; PULSE 56; O2SAT 98
--- NOTE | 2023-02-12 13:25 | AM.OFFWIN_ITS ---
Intake Vital Signs 02/12/23 13:25 Height 5 ft 6 in BP 140/88 H Blood Pressure Location Rt brachial Position Sitting Pulse 56 Pulse Source Pulse Oximeter Pulse Oximetry (%) 98 Oxygen Delivery Method Room Air Intake Visit Reasons: EST/rash not getting any better Intake Note: pt says she was seen Friday for this rash and is not getting better it's on her breast and her face and hair, eyes pt says it's itchy and the rash on her breast hurts Patient Tobacco Use Status: Former Tobacco user Quit Date: Allergies hay fever Allergy (Unknown, Uncoded 02/12/23 13:29) Unknown multiple environmental allergi Allergy (Unknown, Uncoded 02/12/23 13:29) Unknown HPI EST/rash not getting any better HPI Details Patient presents today for ongoing rash. She was seen on Friday here at the clinic and was started on prednisone and topical hydrocortisone for contact dermatitis. She is unsure if this has helped her facial and neck rash, however she is continuing to use medications. What is most bothersome for her, is a rash between and underneath both of her breasts. This is causing her significant pain and irritation. She denies any shortness of breath. [facility] Medical History Anxiety Asthma Axillary nerve injury Borderline high cholesterol Dyspepsia Eczema Greater tuberosity of humerus fracture HTN (hypertension) HTN (hypertension) Hx of fracture of humerus Injury of axillary nerve, left arm, initial encounter Insomnia Multinodular thyroid Neuropathy AVELINO (obstructive sleep apnea) Osteopenia Pain management Prediabetes Surgical History H/O partial thyroidectomy History of back surgery History of bunionectomy of both great toes History of dental surgery History of left shoulder replacement History of tonsillectomy Family History Mother Dementia DDD (degenerative disc disease) Aortic valve disorder Osteoporosis Myelodysplastic syndrome Father Hypertension Parkinsons Depression Brother Hypertension History of hip replacement History of shoulder replacement Sister Multiple sclerosis H/O removal of cyst Sister Scoliosis H/O removal of cyst Sister Hypertension DDD (degenerative disc disease) Scoliosis Social History Housing: House Are you a primary client care representative to a significant other at home: No Do you presently have visiting nurse or other home services: No Alcohol intake: current Alcohol intake frequency: a few times a month Patient Tobacco Use Status: Former Tobacco user Quit Date: Tobacco use type: Cigarette Years Smoked: 25 e-Cigarette/Vaping Use: Never Used Substance Use Type: Marijuana service: No Current occupational status: retired 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 Cognitive needs: No Hearing needs: No Vision needs: No Review of Systems Const All systems reviewed & are unremarkable except as noted in HPI and below Physical Exam Vital Signs: Last Vital Signs Pulse 56 02/12/23 13:25 BP 140/88 H 02/12/23 13:25 Pulse Ox 98 02/12/23 13:25 Oxygen Delivery Method Room Air 02/12/23 13:25 Const General: cooperative and no acute distress Neck Neck: Yes no lymphadenopathy Resp Effort & Inspection: normal respiratory effort and able to speak in complete sentences Auscultation: clear to auscultation bilaterally Cardio Jugular venous distension: no JVD Palpation: normal PMI Rate: regular rate Rhythm: regular rhythm Skin Other: Erythematous rash over face and neck. Also some spots on bilateral forearms. Significant red, beefy rash between and underneath large, pendulous breasts. No vesicles or open areas noted Extrem General: Yes capillary refill normal and Yes no clubbing, cyanosis or edema Psych Appearance: grossly normal Mental Status: mental status grossly normal Speech and movement: Normal speech and movement present Assessment & Plan Assessment & Plan (1) Candidal dermatitis: Code(s): B37.2 - Candidiasis of skin and nail Plan: I feel patient has to conditions occurring simultaneously. She has contact dermatitis, which she should continue to take prednisone for as prescribed by Dr. Patricio 2 days ago. She has a significant fungal rash between and underneath breasts, which is causing her significant discomfort. I have prescribed her fluconazole to take weekly for up to 4 weeks until rash has resolved. I also prescribed her topical nystatin powder. We reviewed indications, use, possible side effects of these medications. If she does not improve with treatment, or rash worsens or new symptoms develop, she should return to the clinic for further evaluation. She agrees to plan. (2) Contact dermatitis: Code(s): L25.9 - Unspecified contact dermatitis, unspecified cause Qualifiers: Contact dermatitis type: unspecified Medications: New fluconazole Take once a week for up to 4 weeks until rash has resolved 150 mg PO QWEEK 4 tabs 0RF 4 weeks B37.2 - Candidiasis of skin and nail nystatin Apply thin layer between and underneath breasts twice a day until rash has resolved 1 appl topical BID 30 grams 1RF B37.2 - Candidiasis of skin and nail Coding Level of Care Code Est Pt Level 3 (76629) Diagnoses Candidal dermatitis B37.2 Contact dermatitis L25.9 Contact dermatitis type: unspecified
== END 2023-02-12 14:05 | disposition home or self-care (01) ==
PROVIDERS: PCP Internal Medicine; Visit Provider Nurse Practitioner Family
DX: B37.2 Candidiasis of skin and nail (principal); L25.9 Unspecified contact dermatitis, unspecified cause
CPT/HCPCS: 99213

== ENCOUNTER 2023-02-19 10:09 | Outpatient (AMB) | payer MEDICARE, SELFPAY ==
--- NOTE | 2023-02-19 10:00 | A.OFFPC_ITS ---
Vital Signs 02/19/23 10:10 Weight 203 lb 6 oz BP 132/88 Blood Pressure Location Rt brachial Position Sitting Pulse 67 Pulse Source Pulse Oximeter Pulse Oximetry (%) 97 Oxygen Delivery Method Room Air Intake Visit Reasons: rash, shakes Allergies hay fever Allergy (Unknown, Uncoded 02/12/23 13:29) Unknown multiple environmental allergi Allergy (Unknown, Uncoded 02/12/23 13:29) Unknown Medication List - Last Reconciled 02/19/23 by Jordan Nj MD albuterol sulfate 90 mcg/actuation (ProAir HFA) 2 puffs inhalation Q6H PRN atenolol 50 mg PO DAILY 90 days betamethasone dipropionate 0.05% 1 appl topical BID PRN cetirizine (Zyrtec) 10 mg PO DAILY cranberry 400 mg PO DAILY docusate sodium 100 mg PO BID 30 days famotidine 20 mg PO BEDTIME fluconazole 150 mg PO QWEEK 4 weeks fluticasone propionate 50 mcg/actuation (Flonase Allergy Relief) 1 spray intranasal DAILY 30 days fluticasone propionate 110 mcg/actuation (Flovent HFA) 1 puff inhalation BID PRN hydrocortisone 2.5% 1 appl topical BID PRN lorazepam 1 mg PO BEDTIME 90 days magnesium 250 mg PO BEDTIME montelukast 10 mg PO BEDTIME multivitamin 1 tab PO DAILY nystatin 1 appl topical BID prednisone 10 mg PO DAILY valsartan 40 mg PO BID 90 days Tobacco use date assessed: 02/19/23 Fall risk assessment: No Falls in past year Last assessed Fall Risk: 02/19/23 Dental Screening Dental Screen Date: 02/19/23 Did you have a dental visit in the last 12 months?: Yes Did you have a dental problem in the last 6 months where you did not have access to dental care?: No Was dental information given to patient?: No HPI rash, shakes HPI Details Patient is a 77-year-old female came in today to be re-evaluated for rash that she has developed 10 days ago Patient had a chronic tenia corporis rash under the breast but 10 days ago she started having rash on her face and upper chest area as well Patient says that she was evaluated in walk-in clinic on of this month and was prescribed prednisone. Which did not help. In fact she felt the rash has gotten worse after taking prednisone She came back on of this month, she was evaluated by a different provider and was prescribed Diflucan once a week x4 and is diet in cream Patient says that the Diflucan has helped her the rash under the breast. However she is extremely itchy in spite of taking hydroxyzine once a day at night. I have told her that she may take that 3 times a day 8 hours apart continue with the Diflucan she still have 2 more weeks to go I will book her appointment with the Dermatology as soon as possible. There is no nausea vomiting, there is no headache no fever, there is no itching in her throat no swelling of tongue or lips. No difficulty breathing PFSH Medical History Anxiety Asthma Axillary nerve injury Borderline high cholesterol Dyspepsia Eczema Greater tuberosity of humerus fracture HTN (hypertension) HTN (hypertension) Hx of fracture of humerus Injury of axillary nerve, left arm, initial encounter Insomnia Multinodular thyroid Neuropathy AVELINO (obstructive sleep apnea) Osteopenia Pain management Prediabetes Surgical History H/O partial thyroidectomy History of back surgery History of bunionectomy of both great toes History of dental surgery History of left shoulder replacement History of tonsillectomy Family History Mother Dementia DDD (degenerative disc disease) Aortic valve disorder Osteoporosis Myelodysplastic syndrome Father Hypertension Parkinsons Depression Brother Hypertension History of hip replacement History of shoulder replacement Sister Multiple sclerosis H/O removal of cyst Sister Scoliosis H/O removal of cyst Sister Hypertension DDD (degenerative disc disease) Scoliosis Social History Housing: House Are you a primary administrator health care facility to a significant other at home: No Do you presently have visiting nurse or other home services: No Alcohol intake: current Alcohol intake frequency: a few times a month Patient Tobacco Use Status: Former Tobacco user Quit Date: Tobacco use type: Cigarette Years Smoked: 25 e-Cigarette/Vaping Use: Never Used Substance Use Type: Marijuana service: No Current occupational status: retired 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 Cognitive needs: No Hearing needs: No Vision needs: No Questionnaire Thrive Questionnaire Date Thrive assessed: 02/28/21 AUDIT C Alcohol Use Questionnaire (AUDIT-C) 1. How often do you have a drink containing alcohol?: Monthly or less 2. How many drinks containing alcohol do you have on a typical day when you are drinking?: 1 or 2 3. How often do you have six or more drinks on one occasion?: Never Total Score: 1 Score Reviewed/Action Taken: Yes Review of Systems Const Denies chills and Denies fever(s) ENT Denies epistaxis and Denies nasal discharge Card Denies chest pain Resp Denies chest congestion, Denies cough and Denies hemoptysis GI Denies diarrhea and Denies nausea Neuro Reports no additional complaints Psych Reports no additional complaints Endo Reports no additional complaints Physical exam (Primary Care) Vital Signs: Last Vital Signs Pulse 67 02/19/23 10:10 BP 132/88 02/19/23 10:10 Pulse Ox 97 02/19/23 10:10 Oxygen Delivery Method Room Air 02/19/23 10:10 Tobacco/Smoking Status: Tobacco use Status Tobacco use date assessed 02/19/23 02/19/23 10:13 Patient Tobacco Use Status Former Tobacco user 02/19/23 10:00 Tobacco use type Cigarette 02/19/23 10:00 e-Cigarette/Vaping Use Never Used 02/19/23 10:00 Thrive Assessment: Date of Thrive Assessment Date Thrive assessed 02/28/21 02/19/23 10:00 Const General: cooperative, comfortable and no acute distress Orientation/consciousness: patient oriented x3 HENMT Head: Yes normocephalic Eyes General: appearance normal, both eyes and all related structures Neck Neck: Yes supple Resp Effort & Inspection: normal respiratory effort, no cough and no stridor Cardio Rhythm: regular rhythm Heart sounds: S1 normal heart sound present and S2 normal heart sound present Skin General skin exam: turgor normal Full body images: 1. Rash that looks like tenia corporis 2. Patchy rash in upper part of chest and neck and face Neuro General: patient oriented x3, tone normal and moves all extremities Extrem Right lower extremity: no edema Left lower extremity: no edema Assessment and Plan Assessment & Plan (1) Pruritic rash: Code(s): L28.2 - Other prurigo Plan Patient is a 77-year-old female came in today to be re-evaluated for rash that she has developed 10 days ago Patient had a chronic tenia corporis rash under the breast but 10 days ago she started having rash on her face and upper chest area as well Patient says that she was evaluated in walk-in clinic on of this month and was prescribed prednisone. Which did not help. In fact she felt the rash has gotten worse after taking prednisone She came back on of this month, she was evaluated by a different provider and was prescribed Diflucan once a week x4 and is diet in cream Patient says that the Diflucan has helped her the rash under the breast. However she is extremely itchy in spite of taking hydroxyzine once a day at [facility]. I have told her that she may take that 3 times a day 8 hours apart continue with the Diflucan she still have 2 more weeks to go I will book her appointment with the Dermatology as soon as possible. There is no nausea vomiting, there is no headache no fever, there is no itching in her throat no swelling of tongue or lips. No difficulty breathing Orders: Referrals Dermatology Referral L28.2 - Other prurigo Coding Level of Care Code Est Pt Level 4 (29152) Diagnoses Pruritic rash L28.2
[2023-02-19 10:10] VITALS: BP 132/88; PULSE 67; O2SAT 97
== END 2023-02-19 10:36 | disposition home or self-care (01) ==
PROVIDERS: PCP Internal Medicine; Visit Provider Internal Medicine
DX: L28.2 Other prurigo (principal)
CPT/HCPCS: 99214

== ENCOUNTER 2023-02-20 12:24 | Outpatient (AMB) | payer MEDICARE, SELFPAY ==
--- NOTE | 2023-02-20 12:34 | MHC.OFFWIV ---
Intake Vital Signs 02/20/23 12:39 BP 120/80 Blood Pressure Location Rt brachial Position Sitting Pulse 74 Pulse Source Pulse Oximeter Temp 97.6 F Temp Source Temporal Artery Scan Pulse Oximetry (%) 98 Oxygen Delivery Method Room Air Intake Visit Reasons: EP Bad rash on face/chest Intake Note: Patient here for bad rash thats been present for about 2 weeks. When she previously came in they stated it was fungal and was given prednisone and and powder. Patient Tobacco Use Status: Former Tobacco user Quit Date: Allergies hay fever Allergy (Unknown, Uncoded 02/20/23 12:39) Unknown multiple environmental allergi Allergy (Unknown, Uncoded 02/20/23 12:39) Unknown HPI HPI Comments History of Present Illness Details The patient presents to urgent care for evaluation of rash that she has had about 12 days. She has been seen multiple times for this rash. She reports that prednisone was helping and was improving however she has completed the course of prednisone previously prescribed. She reports that in addition to what she believes to be eczema rather diffusely over her chest arms and back and face, she developed candidal rash under her breasts. She was seen for this and placed on a course of Diflucan which she reports is helping tremendously. Patient is seeking another prescription of prednisone for the ongoing eczema flare up which she has suffered with intermittently her whole life. [facility] Medical History Anxiety Asthma Axillary nerve injury Borderline high cholesterol Dyspepsia Eczema Greater tuberosity of humerus fracture HTN (hypertension) HTN (hypertension) Hx of fracture of humerus Injury of axillary nerve, left arm, initial encounter Insomnia Multinodular thyroid Neuropathy AVELINO (obstructive sleep apnea) Osteopenia Pain management Prediabetes Surgical History H/O partial thyroidectomy History of back surgery History of bunionectomy of both great toes History of dental surgery History of left shoulder replacement History of tonsillectomy Family History Mother Dementia DDD (degenerative disc disease) Aortic valve disorder Osteoporosis Myelodysplastic syndrome Father Hypertension Parkinsons Depression Brother Hypertension History of hip replacement History of shoulder replacement Sister Multiple sclerosis H/O removal of cyst Sister Scoliosis H/O removal of cyst Sister Hypertension DDD (degenerative disc disease) Scoliosis Social History Housing: House Are you a primary healthcare facility administrator to a significant other at home: No Do you presently have visiting nurse or other home services: No Alcohol intake: current Alcohol intake frequency: a few times a month Patient Tobacco Use Status: Former Tobacco user Quit Date: Tobacco use type: Cigarette Years Smoked: 25 e-Cigarette/Vaping Use: Never Used Substance Use Type: Marijuana service: No Current occupational status: retired 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 Cognitive needs: No Hearing needs: No Vision needs: No Review of Systems Eyes Reports no additional complaints ENT Reports Normal hearing present and Denies dysphagia Card Denies dyspnea and Denies slow heart rate Resp Denies cough and Denies dyspnea GI Denies dysphagia and Denies heartburn Denies dysuria Musc Denies tingling Skin/Breast Reports lesions, Denies skin ulcer and Denies unusual bruising Neuro Reports Normal hearing present, Denies Sensory deficit (Neuro), Denies tingling and Denies paresthesias Physical Exam Vital Signs: Last Vital Signs Temp 97.6 F 02/20/23 12:39 Pulse 74 02/20/23 12:39 BP 120/80 02/20/23 12:39 Pulse Ox 98 02/20/23 12:39 Oxygen Delivery Method Room Air 02/20/23 12:39 Const General: healthy appearing and no acute distress Resp Effort & Inspection: normal respiratory effort and able to speak in complete sentences Skin Other: Macular rash noted over the patient's chest and abdomen, similar appearing rash on the lower back midline and arms. Rash is pink non raised Neuro Cranial nerves: Yes Normal hearing present Sensory Exam: No Sensory deficit (Neuro) Assessment & Plan Assessment & Plan (1) Dermatitis: Code(s): L30.9 - Dermatitis, unspecified Plan: Patient describes that this rash is quite pruritic and Benadryl does not alleviate the edge. I am happy to prescribe another course of prednisone she did seem to have benefit with the prednisone I had lower dosing as well and I will place her on 30 and 20 mg. She will follow-up with her PCP Medications: New prednisone Take 3 tabs daily x3 days, then take 2 tabs daily x3 days 30 mg (3 x 10 mg) PO DAILY 16 tabs 0RF Coding Level of Care Code Est Pt Level 3 (95112) Diagnoses Dermatitis L30.9
[2023-02-20 12:39] VITALS: BP 120/80; PULSE 74; TEMP 36.4; O2SAT 98
== END 2023-02-20 14:30 | disposition home or self-care (01) ==
PROVIDERS: PCP Internal Medicine; Visit Provider Emergency Medicine
DX: L30.9 Dermatitis, unspecified (principal)
CPT/HCPCS: 99213

== ENCOUNTER 2023-04-04 12:59 | Outpatient (AMB) | payer MEDICARE, SELFPAY ==
--- NOTE | 2023-04-04 13:00 | MHC.PC.OV ---
Vital Signs 04/04/23 13:03 Height 5 ft 6 in Weight 201 lb BMI 32.4 BP 120/80 Blood Pressure Location Rt brachial Position Sitting Pulse 60 Pulse Source Pulse Oximeter Pulse Oximetry (%) 97 Oxygen Delivery Method Room Air Intake Visit Reasons: med follow up Allergies hay fever Allergy (Unknown, Uncoded 04/04/23 13:04) Unknown multiple environmental allergi Allergy (Unknown, Uncoded 04/04/23 13:04) Unknown Medication List - Last Reconciled 04/04/23 by Jordan Nj MD albuterol sulfate 90 mcg/actuation (ProAir HFA) 2 puffs inhalation Q6H PRN atenolol 50 mg PO DAILY 90 days betamethasone dipropionate 0.05% 1 appl topical BID PRN cetirizine (Zyrtec) 10 mg PO DAILY cranberry 400 mg PO DAILY docusate sodium 100 mg PO BID 30 days famotidine 20 mg PO BEDTIME fluticasone propionate 50 mcg/actuation (Flonase Allergy Relief) 1 spray intranasal DAILY 30 days fluticasone propionate 110 mcg/actuation (Flovent HFA) 1 puff inhalation BID PRN hydrocortisone 2.5% 1 appl topical BID PRN lorazepam 1 mg PO BEDTIME 90 days magnesium 250 mg PO BEDTIME montelukast 10 mg PO BEDTIME multivitamin 1 tab PO DAILY nystatin 1 appl topical BID prednisone 30 mg (3 x 10 mg) PO DAILY valsartan 40 mg PO BID 90 days Tobacco use date assessed: 02/19/23 [facility] med follow up HPI Details Patient is a 77-year-old female she came in today for her regular follow-up appointment Patient is suffering from numerous medical problems secondary to enlarged breasts She is in need of Plastic surgery for breast reduction I have created a referral to [facility] Plastic surgery as per patient's wishes Letter was formulated as per insurance purposes the content is as following Sandra is fine patient and I have been providing care for for years now. She is suffering from medical problem secondary to an large breasts. Patient is having difficulty finding appropriate garment to contain her breasts. Having difficulty with shoulder pain secondary to proper straps, she is having neck pain which then causes headache. She is having difficulty sleeping at night as her breasts gets in way. She is having difficulty finding appropriate position to sleep at night. Lack of sleep is causing lack of concentration she is having difficulty going through her day. She also complains of recurrent fungal rashes under the breast tissue because of sweating in the skin folds. And have a chronic back pain. Patient would like to have a breast reduction surgery. We will fax this letter over to buy [facility] Plastic surgery so they can book appointment for the patient. She has not done labs that I ordered last visit patient will be doing it today Notified patient that we must do labs every 6 months because of number of medications she is on we need to keep an eye on kidney function and liver functions Anxiety stable patient is on lorazepam 1 mg at bedtime, and Escitalopram 20 mg daily Patient is aware of side effects like , this medication has a risk of being habit forming, slowing of relfexes, dizziness, and its controlled in nature, will need 3 M visit For allergies patient is on Flonase nasal spray along with Zyrtec and montelukast She is also using Flovent inhaler for asthma. Breathing is stable Dyspepsia stable Hypertension: She is taking valsartan 40 mg 2 times a day and atenolol 50 mg daily blood pressure is well controlled BMI is elevated need to lose weight. Medication list reviewed Follow-up 3 months [facility] Medical History Multinodular thyroid AVELINO (obstructive sleep apnea) Hx of fracture of humerus Injury of axillary nerve, left arm, initial encounter Neuropathy Borderline high cholesterol HTN (hypertension) HTN (hypertension) Pain management Dyspepsia Asthma Axillary nerve injury Greater tuberosity of humerus fracture Eczema Anxiety Osteopenia Prediabetes Insomnia Surgical History History of dental surgery History of left shoulder replacement History of bunionectomy of both great toes History of tonsillectomy History of back surgery H/O partial thyroidectomy Family History Mother Dementia DDD (degenerative disc disease) Aortic valve disorder Osteoporosis Myelodysplastic syndrome Father Hypertension Parkinsons Depression Brother Hypertension History of hip replacement History of shoulder replacement Sister Multiple sclerosis H/O removal of cyst Sister Scoliosis H/O removal of cyst Sister Hypertension DDD (degenerative disc disease) Scoliosis Social History Housing: House Are you a primary long term care pharmacist to a significant other at home: No Do you presently have visiting nurse or other home services: No Alcohol intake: current Alcohol intake frequency: a few times a month Patient Tobacco Use Status: Former Tobacco user Quit Date: Tobacco use type: Cigarette Years Smoked: 25 e-Cigarette/Vaping Use: Never Used Substance Use Type: Marijuana service: No Current occupational status: retired 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 1. Little interest or pleasure in doing things: more than half the days 2. Feeling down, depressed, or hopeless: several days 3. Trouble falling or staying asleep, or sleeping too much: several days 4. Feeling tired or having little energy: more than half the days 5. Poor appetite or overeating: more than half the days 6. Feeling bad about yourself - or that you are a failure or have let yourself or your family down: more than half the days 7. Trouble concentrating on things, such as reading the newspaper or watching television: more than half the days 8. Moving or speaking so slowly that other people could have noticed. Or the opposite - being so fidgety or restless that you have been moving around a lot more than usual: not at all 9. Thoughts that you would be better off or of hurting yourself in some way: not at all Total score: 12 Depression Screening Interpretation: Negative 02036 - PHQ-9 Billing: Yes Source: Developed by Drs. Steffen Swanson, Wendi Butterfield, Braydon Ayala and colleagues, with an educational keyona from [email or web address]. Thrive Questionnaire Date Thrive assessed: 04/04/23 I am a: Patient What is your living situation today?: I have a steady place to live Within the past 12 months, did the food you bought not last and you didn't have the money to get more?: Sometimes True Within the past 12 months, did you worry whether your food would run out before you got money to buy more?: Sometimes True Do you have trouble paying for medicines?: No Do you have trouble getting transportation to medical appointments?: No Do you have trouble paying your heating and electricity bill?: No Do you have trouble taking care of your child, family member or friend?: No Do you have trouble with day-to-day activities such as bathing, preparing meals, shopping, managing finances, etc.?: No Are you currently unemployed and looking for a job?: No Are you interested in more education?: No АНДРЕЙ-7 AMB Questionnaire АНДРЕЙ-7 Date АНДРЕЙ - 7 assessed: 04/30/23 Feeling nervous, anxious, or on edge: 3 = Nearly every day Not being able to stop or control worryin = Several days Worrying too much about different things: 1 = Several days Trouble relaxin = Nearly every day Being so restless that it is hard to sit still: 0 = Not at all Becoming easily annoyed or irritable: 0 = Not at all Feeling afraid as if something awful might happen: 3 = Nearly every day Total АНДРЕЙ-7 score (0-4 normal; 5-9 mild; 10-14 moderate; 15-21 severe): 11 Source: Developed by Drs. Steffen Swanson, Wendi Butterfield, Braydon Ayala and colleagues, with an educational keyona from [employer]. АНДРЕЙ-7 Assessment Billing АНДРЕЙ-7 Assessment Tool: АНДРЕЙ-7 Assessment 71067 Review of Systems Const Denies chills and Denies fever(s) ENT Denies epistaxis and Denies nasal discharge Card Denies chest pain Resp Denies chest congestion, Denies cough and Denies hemoptysis GI Denies diarrhea and Denies nausea Skin/Breast Denies rash Neuro Reports no additional complaints Psych Reports no additional complaints Endo Reports no additional complaints Physical exam (Primary Care) Vital Signs: Last Vital Signs Pulse 60 04/04/23 13:03 BP 120/80 04/04/23 13:03 Pulse Ox 97 04/04/23 13:03 Oxygen Delivery Method Room Air 04/04/23 13:03 BMI result Body Mass Index 32.4 Tobacco/Smoking Status: Tobacco use Status Tobacco use date assessed 02/19/23 04/04/23 13:07 Patient Tobacco Use Status Former Tobacco user 04/04/23 13:07 Tobacco use type Cigarette 04/04/23 13:07 e-Cigarette/Vaping Use Never Used 04/04/23 13:07 PHQ-9: PHQ-9 Score PHQ-9: Total score 12 04/04/23 13:48 Depression Screening Interpretation: Negative Thrive Assessment: Date of Thrive Assessment Date Thrive assessed 04/04/23 04/04/23 13:48 Const General: cooperative, comfortable and no acute distress Orientation/consciousness: patient oriented x3 HENMT Head: Yes normocephalic Eyes General: appearance normal, both eyes and all related structures Neck Neck: Yes supple Resp Effort & Inspection: normal respiratory effort, no cough and no stridor Cardio Rhythm: regular rhythm Heart sounds: S1 normal heart sound present and S2 normal heart sound present Skin General skin exam: turgor normal Neuro General: patient oriented x3, tone normal and moves all extremities Extrem Right lower extremity: no edema Left lower extremity: no edema Assessment and Plan Assessment & Plan (1) Breast hypertrophy in female: Code(s): N62 - Hypertrophy of breast (2) Major depression, recurrent: Code(s): F33.9 - Major depressive disorder, recurrent, unspecified Qualifiers: Active/Remission status: in partial remission Qualified Code(s): F33.41 - Major depressive disorder, recurrent, in partial remission (3) Asthma, moderate persistent: Code(s): J45.40 - Moderate persistent asthma, uncomplicated Qualifiers: Asthma complication type: uncomplicated Qualified Code(s): J45.40 - Moderate persistent asthma, uncomplicated (4) Dyspepsia: Code(s): R10.13 - Epigastric pain (5) Multiple allergies: Code(s): Z88.9 - Allergy status to unspecified drugs, medicaments and biological substances (6) Difficulty sleeping: Code(s): G47.9 - Sleep disorder, unspecified (7) Anxiety, generalized: Code(s): F41.1 - Generalized anxiety disorder (8) Vitamin D deficiency: Code(s): E55.9 - Vitamin D deficiency, unspecified (9) Hypertension, essential: Code(s): I10 - Essential (primary) hypertension (10) Upper back pain: Code(s): M54.9 - Dorsalgia, unspecified (11) HTN (hypertension): Code(s): I10 - Essential (primary) hypertension Qualifiers: Hypertension type: primary hypertension Qualified Code(s): I10 - Essential (primary) hypertension (12) Obesity due to excess calories: Code(s): E66.09 - Other obesity due to excess calories Qualifiers: Body mass index: BMI 32.0-32.9 Obesity classification: adult class 1 (BMI 30 - 34.9) Plan Patient is a 77-year-old female she came in today for her regular follow-up appointment Patient is suffering from numerous medical problems secondary to enlarged breasts She is in need of Plastic surgery for breast reduction I have created a referral to [facility] Plastic surgery as per patient's wishes Letter was formulated as per insurance purposes the content is as following Sandra is fine patient and I have been providing care for for years now. She is suffering from medical problem secondary to an large breasts. Patient is having difficulty finding appropriate garment to contain her breasts. Having difficulty with shoulder pain secondary to proper straps, she is having neck pain which then causes headache. She is having difficulty sleeping at night as her breasts gets in way. She is having difficulty finding appropriate position to sleep at night. Lack of sleep is causing lack of concentration she is having difficulty going through her day. She also complains of recurrent fungal rashes under the breast tissue because of sweating in the skin folds. And have a chronic back pain. Patient would like to have a breast reduction surgery. We will fax this letter over to buy [facility] Plastic surgery so they can book appointment for the patient. She has not done labs that I ordered last visit patient will be doing it today Notified patient that we must do labs every 6 months because of number of medications she is on we need to keep an eye on kidney function and liver functions Anxiety stable patient is on lorazepam 1 mg at bedtime, and Escitalopram 20 mg daily Patient is aware of side effects like , this medication has a risk of being habit forming, slowing of relfexes, dizziness, and its controlled in nature, will need 3 M visit For allergies patient is on Flonase nasal spray along with Zyrtec and montelukast She is also using Flovent inhaler for asthma. Breathing is stable Dyspepsia stable Hypertension: She is taking valsartan 40 mg 2 times a day and atenolol 50 mg daily blood pressure is well controlled BMI is elevated need to lose weight. Medication list reviewed Follow-up 3 months Orders: Referrals Plastic Surgery Referral N62 - Hypertrophy of breast Medications: Refilled lorazepam 1 mg PO BEDTIME 90 tabs 0RF 90 days Coding Level of Care Code Est Pt Level 5 (78817) Diagnoses Breast hypertrophy in female N62 Recurrent major depressive disorder, in partial remission F33.41 Active/Remission status: in partial remission Moderate persistent asthma without complication J45.40 Asthma complication type: uncomplicated Dyspepsia R10.13 Multiple allergies Z88.9 Difficulty sleeping G47.9 Anxiety, generalized F41.1 Vitamin D deficiency E55.9 Hypertension, essential I10 Upper back pain M54.9 Primary hypertension I10 Hypertension type: primary hypertension Obesity due to excess calories E66.09 Body mass index: BMI 32.0-32.9 Obesity classification: adult class 1 (BMI 30 - 34.9) Additional Codes АНДРЕЙ-7 Assessment Billing - АНДРЕЙ-7 Assessment Tool: АНДРЕЙ-7 Assessment 30968 ([id number]) Time Spent (min) 45 Comment 5 prep, 20 with patient, 20 coordination of care/ charting/letter/referral
[2023-04-04 13:03] VITALS: BP 120/80; PULSE 60; O2SAT 97; BMI 32.4
== END 2023-04-04 15:51 | disposition home or self-care (01) ==
PROVIDERS: PCP Internal Medicine; Visit Provider Internal Medicine
DX: J45.40 Moderate persistent asthma, uncomplicated (principal); F33.41 Major depressive disorder, recurrent, in partial remission; Z88.9 Allergy status to unspecified drugs, medicaments and biological substances; I10 Essential (primary) hypertension; E55.9 Vitamin D deficiency, unspecified; N62 Hypertrophy of breast; R10.13 Epigastric pain; G47.9 Sleep disorder, unspecified; F41.1 Generalized anxiety disorder; M54.9 Dorsalgia, unspecified; E66.09 Other obesity due to excess calories
CPT/HCPCS: 99215

== ENCOUNTER 2023-04-04 13:20 | Outpatient (REF) | payer MEDICARE, SELFPAY ==
[2023-04-04 16:01] LABS: MANUAL DIFF FLAG NO
[2023-04-04 16:24] LABS: Basophils Absolute Auto 0.1 X10*3/uL (0.0-0.2); Eosinophils Absolute Auto 0.3 X10*3/uL (0.0-0.4); Eosinophils Percent Auto 6.1 % (0-4); Hematocrit 42.4 % (37.0-47.0); Hemoglobin 13.7 g/dl (12.0-16.0); Imm Gran Abs Auto 0.01 X10*3/uL (0.00-0.03); Imm Gran Pct Auto 0.2 % (0.0-0.4); Lymphocytes Absolute Auto 1.5 X10*3/uL (1.2-4.9); Lymphocytes Percent Auto 28.7 % (20-40); Mean Corpuscular HGB Conc 32.3 g/dl (31.0-35.0); Mean Corpuscular Hemoglobin 30.7 pg (27.0-33.0); Mean Corpuscular Volume 95.1 fL (80.0-98.0); Mean Platelet Volume 9.8 fL (9.4-12.3); Monocytes Absolute Auto 0.7 X10*3/uL (0.1-1.2); Monocytes Percent Auto 12.6 % (2-11); Neutrophils Absolute Auto 2.7 x10*3/uL (2.0-8.3); Neutrophils Percent Auto 51.4 % (45-73); Platelet Count 262 X10*3/uL (160-400); Red Blood Count 4.46 X10*6/uL (4.20-5.50); Red Cell Distribution Width 13.7 % (11.0-16.0); White Blood Count 5.2 X10*3/uL (4.8-10.8)
[2023-04-04 16:28] LABS: Alanine Aminotransferase 26 U/L (0-31); Albumin Level 4.3 g/dL (3.5-5.0); Alkaline Phosphatase 73 U/L (39-117); Anion Gap 11 (12-20); Aspartate Amino Transferase 29 U/L (5-31); Bilirubin Total 0.5 mg/dL (0.0-1.0); Blood Urea Nitrogen 19 mg/dL (9-16); Calcium 9.9 mg/dL (8.4-10.2); Carbon Dioxide 26 mmol/L (22-29); Chloride 108 mmol/L (96-108); Estimated Glomerular Filt Rate 57; Glucose Random 101 mg/dL (60-115); Potassium 4.6 mmol/L (3.3-5.1); Sodium 140 mmol/L (135-145); Total Protein 7.2 g/dL (6.5-8.0)
[2023-04-05 16:49] LABS: LDL Cholesterol Direct 124 mg/dL (<100)
[2023-04-09 15:12] LABS: Vitamin D 25-OH, D2 <4 ng/mL; Vitamin D 25-OH, D3 38 ng/mL; Vitamin D 25-OH, Total 38 ng/mL (30-100)
== END 2023-04-04 13:21 | disposition home or self-care (01) ==
LOC: HO.HMGCLDS 13:20
PROVIDERS: PCP Internal Medicine; Visit Provider Internal Medicine
DX: R10.13 Epigastric pain (principal); J45.40 Moderate persistent asthma, uncomplicated; I10 Essential (primary) hypertension; E55.9 Vitamin D deficiency, unspecified; F41.1 Generalized anxiety disorder; G47.9 Sleep disorder, unspecified; Z88.9 Allergy status to unspecified drugs, medicaments and biological substances; F33.9 Major depressive disorder, recurrent, unspecified
CPT/HCPCS: 36415; 80053; 82306; 83721; 85025

== ENCOUNTER 2023-05-26 11:34 | Outpatient (REF) | payer MEDICARE, SELFPAY ==
--- NOTE | ~2023-05-26 | XR_ITS ---
EXAMINATION: XR SHOULDER, LEFT CLINICAL INFORMATION: Pain COMPARISON: Left shoulder radiograph from 02/07/2022 TECHNIQUE: Three views of the left shoulder. FINDINGS: Status post left shoulder arthroplasty. Orthopedic hardware is grossly intact. Joint spaces and alignment are otherwise maintained. Soft tissues are unremarkable. Visualized portions of the left chest are unremarkable. XR/XR shoulder LT min 2V IMPRESSION: Status post left shoulder arthroplasty. Orthopedic hardware is grossly intact.
== END 2023-05-26 11:35 | disposition home or self-care (01) ==
LOC: HO.HOSX 11:34
PROVIDERS: Visit Provider Orthopaedic Surgery
DX: M25.512 Pain in left shoulder (principal); Z96.612 Presence of left artificial shoulder joint
CPT/HCPCS: 73030; 99212

== ENCOUNTER 2023-05-26 12:10 | Outpatient (AMB) | payer MEDICARE, SELFPAY ==
--- NOTE | 2023-05-26 12:23 | A.OFFVIS_ITS ---
Intake Intake Visit Reasons: OV-Lt RTSA 10/24/21 req F/U Intake Note: Sandra is a 77 year old right hand dominant female who presents today for a follow up of her left shoulder s/p Left Reverse TSA 10/24/22. Patient reports that she is doing well with pain and ROM. She has occasional pain in the anterioir aspect of the shoulder. She is concerned of possible dislocation. Allergies hay fever Allergy (Unknown, Uncoded 04/04/23 13:04) Unknown multiple environmental allergi Allergy (Unknown, Uncoded 04/04/23 13:04) Unknown HPI OV-Lt RTSA 10/24/21 req F/U HPI Details Sandra is a 77 year old woman returning S/P left rTSA, DOS: 10/24/21. She is primarily concerned with an aching pain in her shoulder, which occurs sometimes with activity and sometimes when sitting at rest. She was just concerned about the pain ad wanted to make sure nothing was wrong. She denies any severe pain and is limited in some extreme ranges of motion, as expected, but she can use her LUE for daily activities and chores without too much difficulty. FORMERLY [facility], [facility] Medical History Multinodular thyroid AVELINO (obstructive sleep apnea) Hx of fracture of humerus Injury of axillary nerve, left arm, initial encounter Neuropathy Borderline high cholesterol HTN (hypertension) HTN (hypertension) Pain management Dyspepsia Asthma Axillary nerve injury Greater tuberosity of humerus fracture Eczema Anxiety Osteopenia Prediabetes Insomnia Surgical History History of dental surgery History of left shoulder replacement History of bunionectomy of both great toes History of tonsillectomy History of back surgery H/O partial thyroidectomy Family History Mother Dementia DDD (degenerative disc disease) Aortic valve disorder Osteoporosis Myelodysplastic syndrome Father Hypertension Parkinsons Depression Brother Hypertension History of hip replacement History of shoulder replacement Sister Multiple sclerosis H/O removal of cyst Sister Scoliosis H/O removal of cyst Sister Hypertension DDD (degenerative disc disease) Scoliosis Social History Housing: House Are you a primary childbirth and infant care teacher to a significant other at home: No Do you presently have visiting nurse or other home services: No Alcohol intake: current Alcohol intake frequency: a few times a month Patient Tobacco Use Status: Former Tobacco user Quit Date: Tobacco use type: Cigarette Years Smoked: 25 e-Cigarette/Vaping Use: Never Used Substance Use Type: Marijuana service: No Current occupational status: retired 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 Cognitive needs: No Hearing needs: No Vision needs: No Review of Systems Const All systems reviewed & are unremarkable except as noted in HPI and below Physical Exam Const General: no acute distress, alert and awake Orientation/consciousness: patient oriented x3 HEENT Head: Yes normocephalic and Yes atraumatic Eyes EOM: EOMs intact bilaterally Resp Effort & Inspection: normal respiratory effort and able to speak in complete sentences Cardio Jugular venous distension: no JVD Skin General skin exam: turgor normal Rashes: no rashes Neuro General: patient oriented x3 Extrem Other: excellent ROM Well healed incision Mild ttp over anterior interval Psych Appearance: grossly normal Affect: normal affect Attitude: cooperative Results Reviewed Results Reviewed: I personally reviewed relevant radiographs. Left rTSA in expected post operative position with no hardware complications or evidence of loosening Assessment & Plan Assessment & Plan (1) S/p reverse total shoulder arthroplasty: Code(s): Z96.619 - Presence of unspecified artificial shoulder joint Plan: This is a 77 year old woman who is S/P left rTSA, DOS: 10/24/21. She is doing well overall, with good ROM and some minor aching in her shoulder at times. She is not limited in her activities. I recommend she continue activity as tolerated, be mindful to not push through pain, limit heavy lifting, and NSAIDs prn. She can follow up prn. Plan Scribed for Maciel Delgado MD by Clyde Chow, medical transcription, on 05/26/23 at 12:35 PM, EST. Orders: Orders XR shoulder LT min 2V 05/26/23 M25.519 - Pain in unspecified shoulder Coding Level of Care Code Est Pt Level 3 (27786) Diagnoses S/p reverse total shoulder arthroplasty Z96.619
== END 2023-05-26 12:45 | disposition home or self-care (01) ==
PROVIDERS: PCP Internal Medicine; Visit Provider Orthopaedic Surgery
DX: Z47.1 Aftercare following joint replacement surgery (principal); Z96.612 Presence of left artificial shoulder joint
CPT/HCPCS: 99213

== ENCOUNTER 2023-06-02 11:36 | Outpatient (AMB) | payer MEDICARE, SELFPAY ==
[2023-06-02 13:46] VITALS: BP 130/76; PULSE 78; TEMP 36.6; O2SAT 96; BMI 30.7
--- NOTE | 2023-06-02 13:46 | AM.OFFWIN_ITS ---
Intake Vital Signs 06/02/23 13:46 Height 5 ft 6 in Weight 190 lb 6 oz BMI 30.7 BP 130/76 Blood Pressure Location Rt brachial Position Sitting Pulse 78 Pulse Source Pulse Oximeter Temp 97.8 F Temp Source Temporal Artery Scan Pulse Oximetry (%) 96 Oxygen Delivery Method Room Air Intake Visit Reasons: EP infected toe/Rt foot Intake Note: pt is here for c/o infected toe on right foot Patient Tobacco Use Status: Former Tobacco user Quit Date: Allergies hay fever Allergy (Unknown, Uncoded 06/02/23 14:30) Unknown multiple environmental allergi Allergy (Unknown, Uncoded 06/02/23 14:30) Unknown Medication List - Last Reconciled 06/02/23 by Mike Castle MD albuterol sulfate 90 mcg/actuation (ProAir HFA) 2 puffs inhalation Q6H PRN atenolol 50 mg PO DAILY 90 days betamethasone dipropionate 0.05% 1 appl topical BID PRN cetirizine (Zyrtec) 10 mg PO DAILY cranberry 400 mg PO DAILY docusate sodium 100 mg PO BID 30 days famotidine 20 mg PO BEDTIME fluticasone propionate 50 mcg/actuation (Flonase Allergy Relief) 1 spray intranasal DAILY 30 days fluticasone propionate 110 mcg/actuation (Flovent HFA) 1 puff inhalation BID PRN hydrocortisone 2.5% 1 appl topical BID PRN lorazepam 1 mg PO BEDTIME 90 days magnesium 250 mg PO BEDTIME montelukast 10 mg PO BEDTIME multivitamin 1 tab PO DAILY nystatin 1 appl topical BID valsartan 40 mg PO BID 90 days Do you need a note to return to daycare/school/sports/work: Yes HPI EP infected toe/Rt foot HPI Details 77-year-old female presents [facility] for a sick [facility]. Patient has a painful and infected right great toe. Symptoms started after she cut her nail. [facility] Medical History Multinodular thyroid AVELINO (obstructive sleep apnea) Hx of fracture of humerus Injury of axillary nerve, left arm, initial encounter Neuropathy Borderline high cholesterol HTN (hypertension) HTN (hypertension) Pain management Dyspepsia Asthma Axillary nerve injury Greater tuberosity of humerus fracture Eczema Anxiety Osteopenia Prediabetes Insomnia Surgical History History of dental surgery History of left shoulder replacement History of bunionectomy of both great toes History of tonsillectomy History of back surgery H/O partial thyroidectomy Family History Mother Dementia DDD (degenerative disc disease) Aortic valve disorder Osteoporosis Myelodysplastic syndrome Father Hypertension Parkinsons Depression Brother Hypertension History of hip replacement History of shoulder replacement Sister Multiple sclerosis H/O removal of cyst Sister Scoliosis H/O removal of cyst Sister Hypertension DDD (degenerative disc disease) Scoliosis Social History Housing: House Are you a primary clinical care coordinator to a significant other at home: No Do you presently have visiting nurse or other home services: No Alcohol intake: current Alcohol intake frequency: a few times a month Patient Tobacco Use Status: Former Tobacco user Quit Date: Tobacco use type: Cigarette Years Smoked: 25 e-Cigarette/Vaping Use: Never Used Substance Use Type: Marijuana service: No Current occupational status: retired 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 Assessment & Plan Assessment & Plan (1) Paronychia of great toe of right foot: Code(s): L03.031 - Cellulitis of right toe Plan: Antibiotic and anti-inflammatory called in. Keep foot elevated. If symptoms not better to follow-up here. Coding Level of Care Code Est Pt Level 3 (86536) Diagnoses Paronychia of great toe of right foot L03.031
== END 2023-06-02 14:56 | disposition home or self-care (01) ==
PROVIDERS: PCP Internal Medicine; Visit Provider Internal Medicine
DX: L03.031 Cellulitis of right toe (principal)
CPT/HCPCS: 99213

== ENCOUNTER 2023-06-04 13:24 | Outpatient (AMB) | payer MEDICARE, SELFPAY ==
[2023-06-04 13:37] VITALS: BMI 30.8
--- NOTE | 2023-06-04 13:37 | A.OFFVIS_ITS ---
Intake VS Expanded 06/04/23 13:37 06/10/23 13:40 Height 5 ft 6 in 5 ft 6 in Weight 190 lb 11.198 oz 191 lb BMI 30.8 30.8 Intake Visit Reasons: Nutrition Allergies hay fever Allergy (Unknown, Uncoded 06/02/23 14:30) Unknown multiple environmental allergi Allergy (Unknown, Uncoded 06/02/23 14:30) Unknown HPI Nutrition Presentation Details Pt presents for MNT for weight gain. Pt was referred by Dr. Pereira Pt reports making diet modifications, reducing on empty calorie beverages at [facility] and has lost about 10 lbs in 2 months. Pt lives by self making her own meals Pt reports weight in 2009 at 150 lbs Typical meal B: 1 packets sweet and 1 unsweetened made with water or eggs with mushroom on a piece of bread L: meal replacement D: supper : starches/protein/veg, water keeping active with daily life activities no alcohol fruits/d: 1/d ve-4 serving/d, working on increasing dairy: 1/d protein: 6-8 oz/d beverages: water > 64 oz/d XGS-Tpgtmvd-Se.Jeor Equation Height 5 ft 6 in Weight 191 lb Resting Metabolic Rate 1368.49 Calculated Activity Level Mild Activity Calories Needed to Maintain Weight 1881.67 Diagnosis Nutrition problem #1 overweight/obesity As related to (etiology) #1 excess energy intake As evidenced by (sign/symptom) #1 high BMI (30.8 on 05/2023) Monitoring/Goals Nutrition problem monitoring total PRO intake, weight and oral fluids Nutrition goal/outcome wt loss 5lbs in 2 months Outcome progress verbalized understanding Learning/Education Readiness to learn good Stages of change action Educational materials provided Yes (Meal planning) Most Recent Diabetes Results: Creatinine 0.95 mg/dL (0.5-1.4) 04/04/23 Blood Urea Nitrogen 19 mg/dL (9-16) H 04/04/23 Sodium 140 mmol/L (135-145) 04/04/23 Potassium 4.6 mmol/L (3.3-5.1) 04/04/23 Chloride 108 mmol/L (96-108) 04/04/23 Carbon Dioxide 26 mmol/L (22-29) 04/04/23 Calcium 9.9 mg/dL (8.4-10.2) 04/04/23 AST 29 U/L (5-31) 04/04/23 ALT 26 U/L (0-31) 04/04/23 Total Protein 7.2 g/dL (6.5-8.0) 04/04/23 Albumin 4.3 g/dL (3.5-5.0) 04/04/23 [facility] Medical History Multinodular thyroid AVELINO (obstructive sleep apnea) Hx of fracture of humerus Injury of axillary nerve, left arm, initial encounter Neuropathy Borderline high cholesterol HTN (hypertension) HTN (hypertension) Pain management Dyspepsia Asthma Axillary nerve injury Greater tuberosity of humerus fracture Eczema Anxiety Osteopenia Prediabetes Insomnia Surgical History History of dental surgery History of left shoulder replacement History of bunionectomy of both great toes History of tonsillectomy History of back surgery H/O partial thyroidectomy Family History Mother Dementia DDD (degenerative disc disease) Aortic valve disorder Osteoporosis Myelodysplastic syndrome Father Hypertension Parkinsons Depression Brother Hypertension History of hip replacement History of shoulder replacement Sister Multiple sclerosis H/O removal of cyst Sister Scoliosis H/O removal of cyst Sister Hypertension DDD (degenerative disc disease) Scoliosis Social History Housing: House Are you a primary career coordinator to a significant other at home: No Do you presently have visiting nurse or other home services: No Alcohol intake: current Alcohol intake frequency: a few times a month Patient Tobacco Use Status: Former Tobacco user Quit Date: Tobacco use type: Cigarette Years Smoked: 25 e-Cigarette/Vaping Use: Never Used Substance Use Type: Marijuana service: No Current occupational status: retired 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 Cognitive needs: No Hearing needs: No Vision needs: No Assessment & Plan Assessment & Plan (1) Obesity (BMI 30.0-34.9): Code(s): E66.9 - Obesity, unspecified Plan: wt: 87 kg Est kcal needs as per MSJ: 1900 (40% carb, 30% protein/fat) Est fluid needs as per 25-30 ml/d: 2600 Est prot per day as per 1 g/kg bw: 87 g Recommend fiber intake : 8-10 g per day and gradually increase to 25-28 g per day for women and 35-38 g for men or as tolerated Recommend sodium intake per day : less than 2000 mg Educated patient on: ( R = reviewed V = verbalizes understanding N/R = needs review N/A = not applicable * Food sources of carbohydrate, adequate serving sizes and its role in various health conditions: R * Differences between complex carbohydrates a simple carbohydrates, role of fiber in diet: R V * Differences between types of fats and role in diet (mono on saturated fat fatty acids, saturated fatty acids, trans fats): R basic * Food sources of sodium in salt and healthy modifications for heart health in kidney health: R * protein sources of foods: R * Vitamins and minerals: R * Healthy plate method concept: R V * Physical activity: Benefits a precaution: R * Plan 86 g protein 1700 cl Patient Instructions: Include at least 3-4 oz of protein in your meals - see list of protein sources of foods Keep hydrated by water water, broth, low fat milk, dilutes juices with water Reduce on sugars from pastries- have a yogurt instead Coding Level of Care Code Nutr Indiv Intake (03779) Diagnoses Obesity (BMI 30.0-34.9) E66.9 Time Spent (min) 30
[2023-06-10 13:40] VITALS: BMI 30.8
== END 2023-06-04 14:40 | disposition home or self-care (01) ==
PROVIDERS: PCP Internal Medicine; Visit Provider Dietitian, Registered
DX: E66.9 Obesity, unspecified (principal)

== ENCOUNTER → 2023-06-04 13:24 | Outpatient (BNVA) | payer MEDICARE, SELFPAY | PROVIDERS: PCP Internal Medicine; Visit Provider Dietitian, Registered | DX: E66.9 Obesity, unspecified (principal); Z68.30 Body mass index [BMI] 30.0-30.9, adult | CPT/HCPCS: 97802 ==

== ENCOUNTER 2023-07-11 13:56 | Outpatient (AMB) | payer MEDICARE, SELFPAY ==
[2023-07-11 14:09] VITALS: BP 126/78; PULSE 55; O2SAT 95; BMI 30.1
--- NOTE | 2023-07-11 14:09 | A.OFFPC_ITS ---
Vital Signs 3 07/11/23 14:09 Height 5 ft 6 in Weight 186 lb 4 oz BMI 30.1 BP 126/78 Blood Pressure Location Rt brachial Position Sitting Pulse 55 Pulse Source Pulse Oximeter Pulse Oximetry (%) 95 Oxygen Delivery Method Room Air Intake Visit Reasons: med follow up Allergies hay fever Allergy (Unknown, Uncoded 06/02/23 14:30) Unknown multiple environmental allergi Allergy (Unknown, Uncoded 06/02/23 14:30) Unknown Medication List - Last Reconciled 07/11/23 by Jordan Nj MD albuterol sulfate 90 mcg/actuation (ProAir HFA) 2 puffs inhalation Q6H PRN atenolol 50 mg PO DAILY 90 days betamethasone dipropionate 0.05% 1 appl topical BID PRN cetirizine (Zyrtec) 10 mg PO DAILY cranberry 400 mg PO DAILY docusate sodium 100 mg PO BID 30 days famotidine 20 mg PO BEDTIME fluticasone propionate 50 mcg/actuation (Flonase Allergy Relief) 1 spray intranasal DAILY 30 days fluticasone propionate 110 mcg/actuation (Flovent HFA) 1 puff inhalation BID PRN hydrocortisone 2.5% 1 appl topical BID PRN lorazepam 1 mg PO BEDTIME 90 days magnesium 250 mg PO BEDTIME montelukast 10 mg PO BEDTIME multivitamin 1 tab PO DAILY nystatin 1 appl topical BID valsartan 40 mg PO BID 90 days Tobacco use date assessed: 07/11/23 Fall risk assessment: No Falls in past year Last assessed Fall Risk: 07/11/23 Dental Screening Dental Screen Date: 07/11/23 Did you have a dental visit in the last 12 months?: Yes Did you have a dental problem in the last 6 months where you did not have access to dental care?: No Was dental information given to patient?: Patient has dentist HPI med follow up 2 HPI0 Details Patient is a 77-year-old female she came in today for her regular follow-up appointment She has developed right foot big toe ingrown infection, she was seen in walk-in clinic a month ago and was given antibiotic Patient says that infection got better but not all the way. And then it started again I have sent antibiotic again and patient will need to see a satellite tv technician as well. she will have consultation for her enlarged breast in January with cosmetic surgeon urine incontinence , she is using pads , don't want to see Urologist Patient is concerned about a lump she felt right-sided labial 3 months ago She wanted me to check, on examination it seems to be a small labial cyst. Which is not inflamed nontender. We will continue to observe. Asthma is stable Anxiety stable patient is on lorazepam 1 mg at bedtime, and Escitalopram 20 mg daily Patient is aware of side effects like , this medication has a risk of being habit forming, slowing of relfexes, dizziness, and its controlled in nature, will need 3 M visit For allergies patient is on Flonase nasal spray along with Zyrtec and montelukast, she has stopped it for winter, and then restart in spring She is also using Flovent inhaler for asthma. Breathing is stable Dyspepsia stable Hypertension: She is taking valsartan 40 mg 2 times a day and atenolol 50 mg daily blood pressure is well controlled BMI is elevated need to lose weight. Medication list reviewed Follow-up 3 months [facility] Medical History Multinodular thyroid AVELINO (obstructive sleep apnea) Hx of fracture of humerus Injury of axillary nerve, left arm, initial encounter Neuropathy Borderline high cholesterol HTN (hypertension) HTN (hypertension) Pain management Dyspepsia Asthma Axillary nerve injury Greater tuberosity of humerus fracture Eczema Anxiety Osteopenia Prediabetes Insomnia Surgical History History of dental surgery History of left shoulder replacement History of bunionectomy of both great toes History of tonsillectomy History of back surgery H/O partial thyroidectomy Family History Mother Dementia DDD (degenerative disc disease) Aortic valve disorder Osteoporosis Myelodysplastic syndrome Father Hypertension Parkinsons Depression Brother Hypertension History of hip replacement History of shoulder replacement Sister Multiple sclerosis H/O removal of cyst Sister Scoliosis H/O removal of cyst Sister Hypertension DDD (degenerative disc disease) Scoliosis Social History Housing: House Are you a primary critical care nurse specialist to a significant other at home: No Do you presently have visiting nurse or other home services: No Alcohol intake: current Alcohol intake frequency: a few times a month Comment: aware of trip hazard Patient Tobacco Use Status: Former Tobacco user Quit Date: Tobacco use type: Cigarette Years Smoked: 25 e-Cigarette/Vaping Use: Never Used Substance Use Type: Marijuana service: No Current occupational status: retired 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 How often do you have a drink containing alcohol?: Monthly or less 2. How many drinks containing alcohol do you have on a typical day when you are drinking?: 1 or 2 3. How often do you have six or more drinks on one occasion?: Never Total Score: 1 Score Reviewed/Action Taken: Yes АНДРЕЙ-7 AMB Questionnaire АНДРЕЙ-7 Date АНДРЕЙ - 7 assessed: 04/30/23 Source: Developed by Drs. Steffen Swanson, Wendi Butterfield, Braydon Ayala and colleagues, with an educational keyona from [employer]. Review of Systems Const Denies chills and Denies fever(s) ENT Denies epistaxis and Denies nasal discharge Card Denies chest pain Resp Denies chest congestion, Denies cough and Denies hemoptysis GI Denies diarrhea and Denies nausea Skin/Breast Denies rash Neuro Reports no additional complaints Psych Reports no additional complaints Endo Reports no additional complaints Physical exam (Primary Care) Vital Signs: Last Vital Signs Pulse 55 07/11/23 14:09 BP 126/78 07/11/23 14:09 Pulse Ox 95 07/11/23 14:09 Oxygen Delivery Method Room Air 07/11/23 14:09 BMI result Body Mass Index 30.1 Tobacco/Smoking Status: Tobacco use Status Tobacco use date assessed 07/11/23 07/11/23 14:11 Patient Tobacco Use Status Former Tobacco user 07/11/23 14:11 Tobacco use type Cigarette 07/11/23 14:11 e-Cigarette/Vaping Use Never Used 07/11/23 14:11 Thrive Assessment: Date of Thrive Assessment Date Thrive assessed 04/04/23 07/11/23 14:11 Const General: cooperative, comfortable and no acute distress Orientation/consciousness: patient oriented x3 HENMT Head: Yes normocephalic Eyes General: appearance normal, both eyes and all related structures Neck Neck: Yes supple Resp Effort & Inspection: normal respiratory effort, no cough and no stridor Cardio Rhythm: regular rhythm Heart sounds: S1 normal heart sound present and S2 normal heart sound present Female genitals images: 2 1. Pea size firm cyst labia minora , without inflammation or pain Skin General skin exam: turgor normal Neuro General: patient oriented x3, tone normal and moves all extremities Extrem Right lower extremity: no edema Left lower extremity: no edema Assessment and Plan Assessment & Plan (1) Asthma, moderate persistent: Code(s): J45.40 - Moderate persistent asthma, uncomplicated Qualifiers: Asthma complication type: uncomplicated Qualified Code(s): J45.40 - Moderate persistent asthma, uncomplicated (2) Major depression, recurrent: Code(s): F33.9 - Major depressive disorder, recurrent, unspecified Qualifiers: Active/Remission status: in partial remission Qualified Code(s): F33.41 - Major depressive disorder, recurrent, in partial remission (3) Multiple allergies: Code(s): Z88.9 - Allergy status to unspecified drugs, medicaments and biological substances (4) Difficulty sleeping: Code(s): G47.9 - Sleep disorder, unspecified (5) Urine, incontinence, stress female: Code(s): N39.3 - Stress incontinence (female) (male) (6) Ingrown nail of great toe of right foot: Code(s): L60.0 - Ingrowing nail (7) Anxiety, generalized: Code(s): F41.1 - Generalized anxiety disorder (8) Obesity due to excess calories: Code(s): E66.09 - Other obesity due to excess calories Qualifiers: Body mass index: BMI 30.0-30.9 Obesity classification: adult class 1 (BMI 30 - 34.9) Serious obesity comorbidity presence: with serious comorbidity Qualified Code(s): E66.09 - Other obesity due to excess calories; Z68.30 - Body mass index [BMI] 30.0-30.9, adult (9) Hypertension, essential: Code(s): I10 - Essential (primary) hypertension (10) Dyspepsia: Code(s): R10.13 - Epigastric pain (11) Upper back pain: Code(s): M54.9 - Dorsalgia, unspecified (12) Gynecomastia, female: Code(s): N62 - Hypertrophy of breast (13) Labial cyst: Code(s): N90.7 - Vulvar cyst Plan Patient is a 77-year-old female she came in today for her regular follow-up appointment She has developed right foot big toe ingrown infection, she was seen in walk-in clinic a month ago and was given antibiotic Patient says that infection got better but not all the way. And then it started again I have sent antibiotic again and patient will need to see a satellite tv technician as well. she will have consultation for her enlarged breast in January with cosmetic surgeon urine incontinence , she is using pads , don't want to see Urologist Patient is concerned about a lump she felt right-sided labial 3 months ago She wanted me to check, on examination it seems to be a small labial cyst. Which is not inflamed nontender. We will continue to observe. Asthma is stable Anxiety stable patient is on lorazepam 1 mg at bedtime, and Escitalopram 20 mg daily Patient is aware of side effects like , this medication has a risk of being habit forming, slowing of relfexes, dizziness, and its controlled in nature, will need 3 M visit For allergies patient is on Flonase nasal spray along with Zyrtec and montelukast, she has stopped it for winter, and then restart in spring She is also using Flovent inhaler for asthma. Breathing is stable Dyspepsia stable Hypertension: She is taking valsartan 40 mg 2 times a day and atenolol 50 mg daily blood pressure is well controlled BMI is elevated need to lose weight. Medication list reviewed Follow-up 3 months Orders: Orders 2 Comprehensive Met. Panel Today E66.09 - Other obesity due to excess calories, F10.20 - Alcohol dependence, uncomplicated, F33.9 - Major depressive disorder, recurrent, unspecified, F41.1 - Generalized anxiety disorder, G47.9 - Sleep disorder, unspecified, I10 - Essential (primary) hypertension, J45.40 - Moderate persistent asthma, uncomplicated, Z88.9 - Allergy status to unspecified drugs, medicaments and biological substances Complete Blood Count Auto Diff Today E66.09 - Other obesity due to excess calories, F10.20 - Alcohol dependence, uncomplicated, F33.9 - Major depressive disorder, recurrent, unspecified, F41.1 - Generalized anxiety disorder, G47.9 - Sleep disorder, unspecified, I10 - Essential (primary) hypertension, J45.40 - Moderate persistent asthma, uncomplicated, Z88.9 - Allergy status to unspecified drugs, medicaments and biological substances Referrals 2 Podiatry Referral L60.0 - Ingrowing nail Medications: New 2 amoxicillin-pot clavulanate 875-125 mg 1 tab PO BID 20 tabs 0RF 10 days Refilled 2 lorazepam 1 mg PO BEDTIME 90 tabs 0RF 90 days Coding Level of Care Code Est Pt Level 5 (41984) Diagnoses Moderate persistent asthma without complication J45.40 Asthma complication type: uncomplicated Recurrent major depressive disorder, in partial remission F33.41 Active/Remission status: in partial remission Multiple allergies Z88.9 Difficulty sleeping G47.9 Urine, incontinence, stress female N39.3 Ingrown nail of great toe of right foot L60.0 Anxiety, generalized F41.1 Class 1 obesity due to excess calories with serious comorbidity and body mass index (BMI) of 30.0 to 30.9 in adult E66.09; Z68.30 Body mass index: BMI 30.0-30.9 Obesity classification: adult class 1 (BMI 30 - 34.9) Serious obesity comorbidity presence: with serious comorbidity Hypertension, essential I10 Dyspepsia R10.13 Upper back pain M54.9 Gynecomastia, female N62 Labial cyst N90.7 Time Spent (min) 45 Comment 5 prep, 35 with the patient, 10 charting coordination care
== END 2023-07-11 15:34 | disposition home or self-care (01) ==
PROVIDERS: PCP Internal Medicine; Visit Provider Internal Medicine
DX: J45.40 Moderate persistent asthma, uncomplicated (principal); F33.41 Major depressive disorder, recurrent, in partial remission; Z88.9 Allergy status to unspecified drugs, medicaments and biological substances; G47.9 Sleep disorder, unspecified; N39.3 Stress incontinence (female) (male); L60.0 Ingrowing nail; F41.1 Generalized anxiety disorder; E66.09 Other obesity due to excess calories; Z68.30 Body mass index [BMI] 30.0-30.9, adult; I10 Essential (primary) hypertension; R10.13 Epigastric pain; M54.9 Dorsalgia, unspecified
CPT/HCPCS: 99215

== ENCOUNTER 2023-10-10 12:40 | Outpatient (AMB) | payer MEDICARE, SELFPAY ==
--- NOTE | 2023-10-10 12:47 | A.OFFPC_ITS ---
Vital Signs 10/10/23 12:48 Height 5 ft 6 in Weight 181 lb BMI 29.2 BP 118/68 Blood Pressure Location Lt brachial Position Sitting Pulse 51 Pulse Source Pulse Oximeter Pulse Oximetry (%) 97 Oxygen Delivery Method Room Air Intake Visit Reasons: med follow up Allergies hay fever Allergy (Unknown, Uncoded 10/10/23 12:50) Unknown multiple environmental allergi Allergy (Unknown, Uncoded 10/10/23 12:50) Unknown Medication List - Last Reconciled 10/10/23 by Jordan Nj MD albuterol sulfate 90 mcg/actuation (ProAir HFA) 2 puffs inhalation Q6H PRN amoxicillin-pot clavulanate 875-125 mg 1 tab PO BID 10 days atenolol 50 mg PO DAILY 90 days betamethasone dipropionate 0.05% 1 appl topical BID PRN cetirizine (Zyrtec) 10 mg PO DAILY cranberry 400 mg PO DAILY docusate sodium 100 mg PO BID 30 days famotidine 20 mg PO BEDTIME fluticasone propionate 50 mcg/actuation (Flonase Allergy Relief) 1 spray intranasal DAILY 30 days fluticasone propionate 110 mcg/actuation (Flovent HFA) 1 puff inhalation BID PRN hydrocortisone 2.5% 1 appl topical BID PRN lorazepam 1 mg PO BEDTIME 90 days magnesium 250 mg PO BEDTIME montelukast 10 mg PO BEDTIME multivitamin 1 tab PO DAILY nystatin 1 appl topical BID valsartan 40 mg PO BID 90 days Tobacco use date assessed: 10/10/23 Fall risk assessment: No Falls in past year Last assessed Fall Risk: 10/10/23 Dental Screening Dental Screen Date: 10/10/23 Did you have a dental visit in the last 12 months?: Yes Did you have a dental problem in the last 6 months where you did not have access to dental care?: No Was dental information given to patient?: Patient has dentist HPI med follow up HPI Details Patient is a 78-year-old female she came in today for her regular follow-up appointment Her breast reduction surgery consultation coming up January of this year Already has appointment with the component prep operator in October And has seen eye doctor in August Complaining of dizziness off and on, we talked about meclizine which is [id number] patient may take that as needed urine incontinence , she is using pads , don't want to see Urologist Asthma is stable no longer using Flovent inhaler Anxiety stable patient is on lorazepam 1 mg at bedtime, and Escitalopram 20 mg daily Patient is aware of side effects like , this medication has a risk of being habit forming, slowing of relfexes, dizziness, and its controlled in nature, will need 3 M visit For allergies patient is on Flonase nasal spray along with Zyrtec and montelukast, continued to have clear nasal discharge I have sent ipratropium nasal spray patient is to get back to me couple of weeks to update me Dyspepsia stable Hypertension: She is taking valsartan 40 mg 2 times a day and atenolol 50 mg daily blood pressure is well controlled BMI is elevated need to lose weight. Medication list reviewed Follow-up 3 months [facility] Medical History Multinodular thyroid AVELINO (obstructive sleep apnea) Hx of fracture of humerus Injury of axillary nerve, left arm, initial encounter Neuropathy Borderline high cholesterol HTN (hypertension) HTN (hypertension) Pain management Dyspepsia Asthma Axillary nerve injury Greater tuberosity of humerus fracture Eczema Anxiety Osteopenia Prediabetes Insomnia Surgical History History of dental surgery History of left shoulder replacement History of bunionectomy of both great toes History of tonsillectomy History of back surgery H/O partial thyroidectomy Family History Mother Dementia DDD (degenerative disc disease) Aortic valve disorder Osteoporosis Myelodysplastic syndrome Father Hypertension Parkinsons Depression Brother Hypertension History of hip replacement History of shoulder replacement Sister Multiple sclerosis H/O removal of cyst Sister Scoliosis H/O removal of cyst Sister Hypertension DDD (degenerative disc disease) Scoliosis Social History Housing: House Are you a primary healthcare network pricing consultant to a significant other at home: No Do you presently have visiting nurse or other home services: No Alcohol intake: current Alcohol intake frequency: a few times a month Comment: aware of trip hazard Patient Tobacco Use Status: Former Tobacco user Quit Date: Tobacco use type: Cigarette Years Smoked: 25 e-Cigarette/Vaping Use: Never Used Substance Use Type: Marijuana service: No Current occupational status: retired 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 How often do you have a drink containing alcohol?: Monthly or less 2. How many drinks containing alcohol do you have on a typical day when you are drinking?: 1 or 2 3. How often do you have six or more drinks on one occasion?: Never Total Score: 1 Score Reviewed/Action Taken: Yes АНДРЕЙ-7 AMB Questionnaire АНДРЕЙ-7 Date АНДРЕЙ - 7 assessed: 04/30/23 Source: Developed by Drs. Steffen Swanson, Wendi Butterfield, Braydon Ayala and colleagues, with an educational keyona from [employer]. Review of Systems Const Denies chills and Denies fever(s) ENT Denies epistaxis and Denies nasal discharge Card Denies chest pain Resp Denies chest congestion, Denies cough and Denies hemoptysis GI Denies diarrhea and Denies nausea Skin/Breast Denies rash Neuro Reports no additional complaints Psych Reports no additional complaints Endo Reports no additional complaints Physical exam (Primary Care) Vital Signs: Last Vital Signs Pulse 51 10/10/23 12:48 BP 118/68 10/10/23 12:48 Pulse Ox 97 10/10/23 12:48 Oxygen Delivery Method Room Air 10/10/23 12:48 BMI result Body Mass Index 29.2 Tobacco/Smoking Status: Tobacco use Status Tobacco use date assessed 10/10/23 10/10/23 12:53 Patient Tobacco Use Status Former Tobacco user 10/10/23 12:48 Tobacco use type Cigarette 10/10/23 12:48 e-Cigarette/Vaping Use Never Used 10/10/23 12:48 Thrive Assessment: Date of Thrive Assessment Date Thrive assessed 04/04/23 10/10/23 12:48 Const General: cooperative, comfortable and no acute distress Orientation/consciousness: patient oriented x3 HENMT Head: Yes normocephalic Eyes General: appearance normal, both eyes and all related structures Neck Neck: Yes supple Resp Effort & Inspection: normal respiratory effort, no cough and no stridor Cardio Rhythm: regular rhythm Heart sounds: S1 normal heart sound present and S2 normal heart sound present Skin General skin exam: turgor normal Neuro General: patient oriented x3, tone normal and moves all extremities Extrem Right lower extremity: no edema Left lower extremity: no edema Assessment and Plan Assessment & Plan (1) Hypertension, essential: Code(s): I10 - Essential (primary) hypertension (2) Major depression, recurrent: Code(s): F33.9 - Major depressive disorder, recurrent, unspecified Qualifiers: Active/Remission status: in partial remission Qualified Code(s): F33.41 - Major depressive disorder, recurrent, in partial remission (3) Asthma, moderate persistent: Code(s): J45.40 - Moderate persistent asthma, uncomplicated Qualifiers: Asthma complication type: uncomplicated Qualified Code(s): J45.40 - Moderate persistent asthma, uncomplicated (4) Dyspepsia: Code(s): R10.13 - Epigastric pain (5) Difficulty sleeping: Code(s): G47.9 - Sleep disorder, unspecified (6) Obesity due to excess calories: Code(s): E66.09 - Other obesity due to excess calories Qualifiers: Body mass index: BMI 30.0-30.9 Obesity classification: adult class 1 (BMI 30 - 34.9) Serious obesity comorbidity presence: with serious comorbidity Qualified Code(s): E66.09 - Other obesity due to excess calories; Z68.30 - Body mass index [BMI] 30.0-30.9, adult (7) Vitamin D deficiency: Code(s): E55.9 - Vitamin D deficiency, unspecified (8) Multiple allergies: Code(s): Z88.9 - Allergy status to unspecified drugs, medicaments and biological substanc es (9) Urine, incontinence, stress female: Code(s): N39.3 - Stress incontinence (female) (male) (10) Anxiety, generalized: Code(s): F41.1 - Generalized anxiety disorder (11) Chronic nasal discharge: Code(s): J34.89 - Other specified disorders of nose and nasal sinuses Plan Patient is a 78-year-old female she came in today for her regular follow-up appointment Her breast reduction surgery consultation coming up January of this year Already has appointment with the component prep operator in October And has seen eye doctor in August Complaining of dizziness off and on, we talked about meclizine which is [id number] patient may take that as needed urine incontinence , she is using pads , don't want to see Urologist Asthma is stable no longer using Flovent inhaler Anxiety stable patient is on lorazepam 1 mg at bedtime, and Escitalopram 20 mg daily Patient is aware of side effects like , this medication has a risk of being habit forming, slowing of relfexes, dizziness, and its controlled in nature, will need 3 M visit For allergies patient is on Flonase nasal spray along with Zyrtec and montelukast, continued to have clear nasal discharge I have sent ipratropium nasal spray patient is to get back to me couple of weeks to update me Dyspepsia stable Hypertension: She is taking valsartan 40 mg 2 times a day and atenolol 50 mg daily blood pressure is well controlled BMI is elevated need to lose weight. Medication list reviewed Follow-up 3 months Orders: Orders Complete Blood Count Auto Diff Today E55.9 - Vitamin D deficiency, unspecified, E66.09 - Other obesity due to excess calories, F33.9 - Major depressive disorder, recurrent, unspecified, G47.9 - Sleep disorder, unspecified, I10 - Essential (primary) hypertension, J45.40 - Moderate persistent asthma, uncomplicated, R10.13 - Epigastric pain Vitamin D 25-OH (D2 and D3) Today E55.9 - Vitamin D deficiency, unspecified, E66.09 - Other obesity due to excess calories, F33.9 - Major depressive disorder, recurrent, unspecified, G47.9 - Sleep disorder, unspecified, I10 - Essential (primary) hypertension, J45.40 - Moderate persistent asthma, uncomplicated, R10.13 - Epigastric pain Vitamin B12 Today E55.9 - Vitamin D deficiency, unspecified, E66.09 - Other obesity due to excess calories, F33.9 - Major depressive disorder, recurrent, unspecified, G47.9 - Sleep disorder, unspecified, I10 - Essential (primary) hypertension, J45.40 - Moderate persistent asthma, uncomplicated, R10.13 - Epigastric pain Comprehensive Met. Panel Today E55.9 - Vitamin D deficiency, unspecified, E66.09 - Other obesity due to excess calories, F33.9 - Major depressive disorder, recurrent, unspecified, G47.9 - Sleep disorder, unspecified, I10 - Essential (primary) hypertension, J45.40 - Moderate persistent asthma, uncomplicated, R10.13 - Epigastric pain LDL Cholesterol Direct Today E55.9 - Vitamin D deficiency, unspecified, E66.09 - Other obesity due to excess calories, F33.9 - Major depressive disorder, recurrent, unspecified, G47.9 - Sleep disorder, unspecified, I10 - Essential (primary) hypertension, J45.40 - Moderate persistent asthma, uncomplicated, R10.13 - Epigastric pain TSH reflex Free T4 Today I10 - Essential (primary) hypertension Medications: New ipratropium bromide administer into each nostril 2 sprays intranasal TID 15 mL 0RF Refilled lorazepam 1 mg PO BEDTIME 90 tabs 0RF 90 days Discontinued amoxicillin-pot clavulanate 875-125 mg Discontinued Reason: Patient Completed Course 1 tab PO BID 10 days 20 tabs 0RF Coding Level of Care Code Est Pt Level 4 (25153) Diagnoses Hypertension, essential I10 Recurrent major depressive disorder, in partial remission F33.41 Active/Remission status: in partial remission Moderate persistent asthma without complication J45.40 Asthma complication type: uncomplicated Dyspepsia R10.13 Difficulty sleeping G47.9 Class 1 obesity due to excess calories with serious comorbidity and body mass index (BMI) of 30.0 to 30.9 in adult E66.09; Z68.30 Body mass index: BMI 30.0-30.9 Obesity classification: adult class 1 (BMI 30 - 34.9) Serious obesity comorbidity presence: with serious comorbidity Vitamin D deficiency E55.9 Multiple allergies Z88.9 Urine, incontinence, stress female N39.3 Anxiety, generalized F41.1 Chronic nasal discharge J34.89
[2023-10-10 12:48] VITALS: BP 118/68; PULSE 51; O2SAT 97; BMI 29.2
== END 2023-10-10 13:17 | disposition home or self-care (01) ==
PROVIDERS: PCP Internal Medicine; Visit Provider Internal Medicine
DX: I10 Essential (primary) hypertension (principal); F33.41 Major depressive disorder, recurrent, in partial remission; J45.40 Moderate persistent asthma, uncomplicated; R10.13 Epigastric pain; G47.9 Sleep disorder, unspecified; E66.09 Other obesity due to excess calories; Z68.30 Body mass index [BMI] 30.0-30.9, adult; E55.9 Vitamin D deficiency, unspecified; Z88.9 Allergy status to unspecified drugs, medicaments and biological substances; N39.3 Stress incontinence (female) (male); F41.1 Generalized anxiety disorder; J34.89 Other specified disorders of nose and nasal sinuses
CPT/HCPCS: 99214

== ENCOUNTER 2023-10-10 13:20 | Outpatient (REF) | payer MEDICARE, SELFPAY ==
[2023-10-10 16:02] LABS: MANUAL DIFF FLAG NO
[2023-10-10 16:07] LABS: Basophils Absolute Auto 0.1 X10*3/uL (0.0-0.2); Basophils Percent Auto 1.1 % (0-2); Eosinophils Absolute Auto 0.2 X10*3/uL (0.0-0.4); Eosinophils Percent Auto 4.4 % (0-4); Hematocrit 42.7 % (37.0-47.0); Hemoglobin 13.5 g/dl (12.0-16.0); Imm Gran Abs Auto 0.01 X10*3/uL (0.00-0.03); Imm Gran Pct Auto 0.2 % (0.0-0.4); Lymphocytes Absolute Auto 1.6 X10*3/uL (1.2-4.9); Lymphocytes Percent Auto 31.2 % (20-40); Mean Corpuscular HGB Conc 31.6 g/dl (31.0-35.0); Mean Corpuscular Hemoglobin 30.1 pg (27.0-33.0); Mean Corpuscular Volume 95.3 fL (80.0-98.0); Mean Platelet Volume 9.9 fL (9.4-12.3); Monocytes Absolute Auto 0.5 X10*3/uL (0.1-1.2); Monocytes Percent Auto 9.8 % (2-11); Neutrophils Absolute Auto 2.8 x10*3/uL (2.0-8.3); Neutrophils Percent Auto 53.3 % (45-73); Platelet Count 264 X10*3/uL (160-400); Red Blood Count 4.48 X10*6/uL (4.20-5.50); Red Cell Distribution Width 13.5 % (11.0-16.0); White Blood Count 5.2 X10*3/uL (4.8-10.8)
[2023-10-10 16:34] LABS: Alanine Aminotransferase 15 U/L (0-31); Albumin Level 4.4 g/dL (3.5-5.0); Alkaline Phosphatase 70 U/L (39-117); Anion Gap 13 (12-20); Aspartate Amino Transferase 22 U/L (5-31); Bilirubin Total 0.4 mg/dL (0.0-1.0); Blood Urea Nitrogen 22 mg/dL (9-16); Calcium 9.4 mg/dL (8.4-10.2); Carbon Dioxide 26 mmol/L (22-29); Chloride 105 mmol/L (96-108); Estimated Glomerular Filt Rate > 60; Glucose Random 93 mg/dL (60-115); Potassium 4.2 mmol/L (3.3-5.1); Sodium 140 mmol/L (135-145); Total Protein 7.5 g/dL (6.5-8.0)
[2023-10-10 16:41] LABS: TSH reflex Free T4 1.43 uIU/mL (0.32-4.0)
[2023-10-10 16:45] LABS: Vitamin B12 862 pg/mL (200-900)
[2023-10-11 12:08] LABS: LDL Cholesterol Direct 108 mg/dL (<100)
[2023-10-15 13:09] LABS: Vitamin D 25-OH, D2 <4 ng/mL; Vitamin D 25-OH, D3 40 ng/mL; Vitamin D 25-OH, Total 40 ng/mL (30-100)
== END 2023-10-10 13:21 | disposition home or self-care (01) ==
LOC: HO.HMGCLDS 13:20
PROVIDERS: PCP Internal Medicine; Visit Provider Internal Medicine
DX: F33.9 Major depressive disorder, recurrent, unspecified (principal); J45.40 Moderate persistent asthma, uncomplicated; R10.13 Epigastric pain; G47.9 Sleep disorder, unspecified; E66.09 Other obesity due to excess calories; E55.9 Vitamin D deficiency, unspecified; I10 Essential (primary) hypertension
CPT/HCPCS: 36415; 80053; 82306; 82607; 83721; 84443; 85025

== ENCOUNTER 2023-12-18 11:25 | Outpatient (REF) | payer MEDICARE, SELFPAY ==
--- NOTE | ~2023-12-18 | US_ITS ---
EXAMINATION: US THYROID CLINICAL INFORMATION: Nontoxic multinodular goiter. COMPARISON: Ultrasound-guided thyroid biopsy 09/15/2022. Thyroid ultrasound 06/11/2022 and 05/26/2019. Right thyroidectomy 1994. TECHNIQUE: Linear transducer francisco-scale and color Doppler examination with attention to the region of the thyroid. FINDINGS: SIZE: Measurements of the solitary left thyroid lobe and nodules are given in sagittal, anteroposterior and transverse dimensions respectively. Right Thyroid Lobe: Surgically absent. Left Thyroid Lobe: 5.7 x 2.2 x 2.8 cm, volume 18.9 mL. Previously 6.4 x 2.4 x 2.7 cm, volume 22.3 mL. Parenchyma: The gland echotexture is heterogeneous. Thyroid vascularity is increased. Isthmus: 0.33 cm in maximum AP dimension. Previously 0.24 cm. Estimated total number of nodules greater than or equal to 1 cm: 1. It Disaster Recovery Manager nodules are described as follows: 1. Location: Left mid. Size: 0.73 x 0.45 x 0.61 cm, volume 0.10 mL. Previously: 0.93 x 0.70 x 0.83 cm, volume 0.30 mL. Nodule characteristics: Composition: Solid (2). Echogenicity: Hypoechoic (2). Shape: Not taller than wide (0). Margins: Smooth (0). Echogenic Foci: None (0). ACR TI-RADS total points: 4 Previous: 4 ACR TI-RADS category: 4 Previous: 4 Significant change in size (>/= 20% in 2 dimensions and minimal increase of 2 mm or 50% or greater increase in volume): No Change in features: No Change in ACR TI-RADS risk category: No 2. Location: Left mid/inferior. Size: 3.2 x 2.3 x 3.0 cm, volume 11.7 mL. Previously: 3.4 x 2.5 x 3.1 cm, volume 13.3 mL. Nodule characteristics: Composition: Solid/almost completely solid (2). Echogenicity: Hypoechoic (2). Shape: Not taller than wide (0). Margins: Smooth (0). Echogenic Foci: Punctate echogenic foci (3). ACR TI-RADS total points: 7 Previous: 4 ACR TI-RADS category: 5 Previous: 4 Significant change in size (>/= 20% in 2 dimensions and minimal increase of 2 mm or 50% or greater increase in volume): No Change in features: Yes Change in ACR TI-RADS risk category: Yes NODES: No lymphadenopathy is seen in the tissue surrounding the thyroid gland. US/US thyroid IMPRESSION: 1. A 3.2 cm left TR 5 thyroid nodule meets criteria for biopsy. Correlation with prior biopsy results and clinical exam recommended to determine further management. 2. Right thyroid lobe surgically absent. ACR TI-RADS RECOMMENDATION REFERENCE: Ultrasound-guided fine-needle aspiration, follow up ultrasound, no further followup. * TR1 (0 point) and TR2 (2 points): No FNA or followup * TR3 (3 points): FNA if more than or equal to 2.5 cm in maximum dimension, follow up ultrasound in 1, 3 and 5 years if 1.5 to 2.4 cm in maximum dimension. * TR4 (4-6 points): FNA if more than or equal to 1.5 cm in maximum dimension, follow up ultrasound in 1, 2, 3 and 5 years if 1 to 1.4 cm in maximum dimension. * TR5 (more than or equal to 7 points): FNA if more than or equal to 1 cm in maximum dimension, follow up ultrasound every year for 5 years if 0.5 to 0.9 cm in maximum dimension. * TR3, TR4 or TR5 nodules that are below the size threshold for follow up receive no followup.
== END 2023-12-18 11:26 | disposition home or self-care (01) ==
LOC: HO.HMGCX 11:25
PROVIDERS: PCP Internal Medicine; Visit Provider Internal Medicine Endocrinology, Diabetes & Metabolism
DX: E04.2 Nontoxic multinodular goiter (principal)
CPT/HCPCS: 76536

== ENCOUNTER 2023-12-23 12:09 | Outpatient (AMB) | payer MEDICARE, SELFPAY ==
[2023-12-23 12:17] VITALS: BP 130/82; PULSE 52; O2SAT 98; BMI 29.1
--- NOTE | 2023-12-23 12:17 | A.OFFPC_ITS ---
Vital Signs 12/23/23 12:17 Height 5 ft 6 in Weight 180 lb 2 oz BMI 29.1 BP 130/82 Blood Pressure Location Rt brachial Position Sitting Pulse 52 Pulse Source Pulse Oximeter Pulse Oximetry (%) 98 Oxygen Delivery Method Room Air Intake Visit Reasons: med follow up Allergies hay fever Allergy (Unknown, Uncoded 10/10/23 12:50) Unknown multiple environmental allergi Allergy (Unknown, Uncoded 10/10/23 12:50) Unknown Medication List - Last Reconciled 12/23/23 by Jordan Nj MD albuterol sulfate 90 mcg/actuation (ProAir HFA) 2 puffs inhalation Q6H PRN atenolol 50 mg PO DAILY 90 days betamethasone dipropionate 0.05% 1 appl topical BID PRN cetirizine (Zyrtec) 10 mg PO DAILY cranberry 400 mg PO DAILY docusate sodium 100 mg PO BID 30 days famotidine 20 mg PO BEDTIME fluticasone propionate 50 mcg/actuation (Flonase Allergy Relief) 1 spray intranasal DAILY 30 days fluticasone propionate 110 mcg/actuation (Flovent HFA) 1 puff inhalation BID PRN hydrocortisone 2.5% 1 appl topical BID PRN ipratropium bromide 2 sprays intranasal TID lorazepam 1 mg PO BEDTIME 90 days magnesium 250 mg PO BEDTIME montelukast 10 mg PO BEDTIME multivitamin 1 tab PO DAILY nystatin 1 appl topical BID valsartan 40 mg PO BID 90 days Tobacco use date assessed: 12/23/23 Fall risk assessment: No Falls in past year Last assessed Fall Risk: 12/23/23 Dental Screening Dental Screen Date: 12/23/23 Did you have a dental visit in the last 12 months?: Yes Did you have a dental problem in the last 6 months where you did not have access to dental care?: No Was dental information given to patient?: Patient has dentist HPI med follow up HPI Details Patient is a 78-year-old female she came in today for her regular follow-up appointment Patient states that she has been working outside in this hot weather Placing mulch in her garden and has developed a pruritic rash all over her body On examination she has heat rash which is not responding to local creams I have sent prednisone 20 mg once a day 5 days I would recommend to stay indoors while the rash healed urine incontinence , she is using pads , don't want to see Urologist Asthma is stable no longer using Flovent inhaler Anxiety stable patient is on lorazepam 1 mg at bedtime, and Escitalopram 20 mg daily Patient is aware of side effects like , this medication has a risk of being habit forming, slowing of relfexes, dizziness, and its controlled in nature, will need 3 M visit For allergies patient is on Flonase nasal spray along with Zyrtec and montelukast, continued to have clear nasal discharge Ipratropium nasal spray did not help her Dyspepsia stable Having constipation, I told to take fleets enema to empty the colon and then start taking Senokot [id number] as needed Hypertension: She is taking valsartan 40 mg 2 times a day and atenolol 50 mg daily blood pressure is well controlled BMI is elevated need to lose weight. Medication list reviewed Follow-up 3 months [facility] Medical History Multinodular thyroid AVELINO (obstructive sleep apnea) Hx of fracture of humerus Injury of axillary nerve, left arm, initial encounter Neuropathy Borderline high cholesterol HTN (hypertension) HTN (hypertension) Pain management Dyspepsia Asthma Axillary nerve injury Greater tuberosity of humerus fracture Eczema Anxiety Osteopenia Prediabetes Insomnia Surgical History History of dental surgery History of left shoulder replacement History of bunionectomy of both great toes History of tonsillectomy History of back surgery H/O partial thyroidectomy Family History Mother Dementia DDD (degenerative disc disease) Aortic valve disorder Osteoporosis Myelodysplastic syndrome Father Hypertension Parkinsons Depression Brother Hypertension History of hip replacement History of shoulder replacement Sister Multiple sclerosis H/O removal of cyst Sister Scoliosis H/O removal of cyst Sister Hypertension DDD (degenerative disc disease) Scoliosis Social History Housing: House Are you a primary assisted living care manager to a significant other at home: No Do you presently have visiting nurse or other home services: No Alcohol intake: current Alcohol intake frequency: a few times a month Comment: aware of trip hazard Patient Tobacco Use Status: Former Tobacco user Quit Date: Tobacco use type: Cigarette Years Smoked: 25 e-Cigarette/Vaping Use: Never Used Substance Use Type: Marijuana service: No Current occupational status: retired 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 How often do you have a drink containing alcohol?: Monthly or less 2. How many drinks containing alcohol do you have on a typical day when you are drinking?: 1 or 2 3. How often do you have six or more drinks on one occasion?: Never Total Score: 1 Score Reviewed/Action Taken: Yes АНДРЕЙ-7 AMB Questionnaire АНДРЕЙ-7 Date АНДРЕЙ - 7 assessed: 04/30/23 Source: Developed by Drs. Steffen Swanson, Wendi Butterfield, Braydon Ayala and colleagues, with an educational keyona from [employer]. Review of Systems Const Denies chills and Denies fever(s) ENT Denies epistaxis and Denies nasal discharge Card Denies chest pain Resp Denies chest congestion, Denies cough and Denies hemoptysis GI Denies diarrhea and Denies nausea Neuro Reports no additional complaints Psych Reports no additional complaints Endo Reports no additional complaints Physical exam (Primary Care) Vital Signs: Last Vital Signs Pulse 52 12/23/23 12:17 BP 130/82 12/23/23 12:17 Pulse Ox 98 12/23/23 12:17 Oxygen Delivery Method Room Air 12/23/23 12:17 BMI result Body Mass Index 29.1 Tobacco/Smoking Status: Tobacco use Status Tobacco use date assessed 12/23/23 12/23/23 12:20 Patient Tobacco Use Status Former Tobacco user 12/23/23 12:20 Tobacco use type Cigarette 12/23/23 12:20 e-Cigarette/Vaping Use Never Used 12/23/23 12:20 Thrive Assessment: Date of Thrive Assessment Date Thrive assessed 04/04/23 12/23/23 12:20 Const General: cooperative, comfortable and no acute distress Orientation/consciousness: patient oriented x3 HENMT Head: Yes normocephalic Eyes General: appearance normal, both eyes and all related structures Neck Neck: Yes supple Resp Effort & Inspection: normal respiratory effort, no cough and no stridor Cardio Rhythm: regular rhythm Heart sounds: S1 normal heart sound present and S2 normal heart sound present Skin Other: Heat rash mostly on the dorsal General skin exam: turgor normal Neuro General: patient oriented x3, tone normal and moves all extremities Extrem Right lower extremity: no edema Left lower extremity: no edema Assessment and Plan Assessment & Plan (1) Hypertension, essential: Code(s): I10 - Essential (primary) hypertension (2) Major depression, recurrent: Code(s): F33.9 - Major depressive disorder, recurrent, unspecified Qualifiers: Active/Remission status: in partial remission Qualified Code(s): F33.41 - Major depressive disorder, recurrent, in partial remission (3) Heat rash: Code(s): L74.0 - Miliaria rubra (4) Asthma, moderate persistent: Code(s): J45.40 - Moderate persistent asthma, uncomplicated Qualifiers: Asthma complication type: uncomplicated Qualified Code(s): J45.40 - Moderate persistent asthma, uncomplicated (5) Dyspepsia: Code(s): R10.13 - Epigastric pain (6) Difficulty sleeping: Code(s): G47.9 - Sleep disorder, unspecified (7) Obesity due to excess calories: Code(s): E66.09 - Other obesity due to excess calories Qualifiers: Obesity classification: adult class 1 (BMI 30 - 34.9) Serious obesity comorbidity presence: with serious comorbidity Body mass index: BMI 30.0-30.9 Qualified Code(s): E66.09 - Other obesity due to excess calories; Z68.30 - Body mass index [BMI] 30.0-30.9, adult (8) Vitamin D deficiency: Code(s): E55.9 - Vitamin D deficiency, unspecified (9) Multiple allergies: Code(s): Z88.9 - Allergy status to unspecified drugs, medicaments and biological substances (10) Urine, incontinence, stress female: Code(s): N39.3 - Stress incontinence (female) (male) (11) Anxiety, generalized: Code(s): F41.1 - Generalized anxiety disorder (12) Chronic nasal discharge: Code(s): J34.89 - Other specified disorders of nose and nasal sinuses Plan Patient is a 78-year-old female she came in today for her regular follow-up appointment Patient states that she has been working outside in this hot weather Placing mulch in her garden and has developed a pruritic rash all over her body On examination she has heat rash which is not responding to local creams I have sent prednisone 20 mg once a day 5 days I would recommend to stay indoors while the rash healed urine incontinence , she is using pads , don't want to see Urologist Asthma is stable no longer using Flovent inhaler Anxiety stable patient is on lorazepam 1 mg at bedtime, and Escitalopram 20 mg daily Patient is aware of side effects like , this medication has a risk of being hab it forming, slowing of relfexes, dizziness, and its controlled in nature, will need 3 M visit For allergies patient is on Flonase nasal spray along with Zyrtec and montelukast, continued to have clear nasal discharge Ipratropium nasal spray did not help her Dyspepsia stable Having constipation, I told to take fleets enema to empty the colon and then start taking Senokot [id number] as needed Hypertension: She is taking valsartan 40 mg 2 times a day and atenolol 50 mg daily blood pressure is well controlled BMI is elevated need to lose weight. Medication list reviewed Follow-up 3 months Medications: New prednisone 20 mg PO DAILY 5 tabs 0RF 5 days Refilled lorazepam 1 mg PO BEDTIME 90 tabs 0RF 90 days Coding Level of Care Code Est Pt Level 4 (20476) Diagnoses Hypertension, essential I10 Recurrent major depressive disorder, in partial remission F33.41 Active/Remission status: in partial remission Heat rash L74.0 Moderate persistent asthma without complication J45.40 Asthma complication type: uncomplicated Dyspepsia R10.13 Difficulty sleeping G47.9 Class 1 obesity due to excess calories with serious comorbidity and body mass index (BMI) of 30.0 to 30.9 in adult E66.09; Z68.30 Obesity classification: adult class 1 (BMI 30 - 34.9) Serious obesity comorbidity presence: with serious comorbidity Body mass index: BMI 30.0-30.9 Vitamin D deficiency E55.9 Multiple allergies Z88.9 Urine, incontinence, stress female N39.3 Anxiety, generalized F41.1 Chronic nasal discharge J34.89
== END 2023-12-23 12:44 | disposition home or self-care (01) ==
PROVIDERS: PCP Internal Medicine; Visit Provider Internal Medicine
DX: I10 Essential (primary) hypertension (principal); F33.41 Major depressive disorder, recurrent, in partial remission; L74.0 Miliaria rubra; J45.40 Moderate persistent asthma, uncomplicated; R10.13 Epigastric pain; G47.9 Sleep disorder, unspecified; E66.09 Other obesity due to excess calories; Z68.30 Body mass index [BMI] 30.0-30.9, adult; E55.9 Vitamin D deficiency, unspecified; Z88.9 Allergy status to unspecified drugs, medicaments and biological substances; N39.3 Stress incontinence (female) (male); F41.1 Generalized anxiety disorder; J34.89 Other specified disorders of nose and nasal sinuses
CPT/HCPCS: 99214

== ENCOUNTER 2023-12-24 13:14 | Outpatient (AMB) | payer MEDICARE, SELFPAY ==
--- NOTE | 2023-12-24 13:19 | MHC.OFFVIS ---
Vital Signs 12/24/23 13:20 Height 5 ft 6 in Weight 180 lb 1.883 oz BMI 29.1 BP 116/68 Blood Pressure Location Rt brachial Position Sitting Pulse 50 Pulse Source Pulse Oximeter Intake Visit Reasons: F/U NTMNG Intake Note: Patient present today for NTMNG follow up visit. Hand Almond Blancher Required: No Accompanied by: Self / Same As Patient Allergies hay fever Allergy (Unknown, Uncoded 12/24/23 13:21) Unknown multiple environmental allergi Allergy (Unknown, Uncoded 12/24/23 13:21) Unknown HPI Comments Details: 77 YO F with PMHx NTMNG who is seen in F/U for a NTMNG. The patient last saw Dr. Calderon on 12/02/2022 Was initially diagnosed with multinodular thyroid many years ago and did undergo prior FNA biopsies by Dr. Pereira. She reports these were benign. She is S/P a R hemithyroidectomy due to compressive nodules, and reports surgical path was benign. She is unsure when her surgery was, but reports it was at least 10 years ago. She then underwent a repeat FNA biopsy 09/05/2022 of her left mid pole 3.4 cm and her left mid pole 1.1 cm thyroid nodules. Cytology was benign. She presents today to review these results. Currently does complain of dysphagia, but denies hoarseness of voice. Does mention a pressure type sensation while lying flat. Denies any symptoms of hyper or hypothyroidism. Denies any history of head or neck irradiation. Denies any family history of thyroid cancer in her immediate family, though she does have cousins with a history of thyroid cancer. Labs: Laboratory Tests 06/19/22 09:54 TSH 1.68 Free T4 0.84 [facility] Medical History Multinodular thyroid AVELINO (obstructive sleep apnea) Hx of fracture of humerus Injury of axillary nerve, left arm, initial encounter Neuropathy Borderline high cholesterol HTN (hypertension) HTN (hypertension) Pain management Dyspepsia Asthma Axillary nerve injury Greater tuberosity of humerus fracture Eczema Anxiety Osteopenia Prediabetes Insomnia Surgical History Hx of cataract surgery History of dental surgery History of left shoulder replacement History of bunionectomy of both great toes History of tonsillectomy History of back surgery H/O partial thyroidectomy Family History Mother Dementia DDD (degenerative disc disease) Aortic valve disorder Osteoporosis Myelodysplastic syndrome Father Hypertension Parkinsons Depression Brother Hypertension History of hip replacement History of shoulder replacement Sister Multiple sclerosis H/O removal of cyst Sister Scoliosis H/O removal of cyst Sister Hypertension DDD (degenerative disc disease) Scoliosis Social History Housing: House Are you a primary health care manager to a significant other at home: No Do you presently have visiting nurse or other home services: No Alcohol intake: current Alcohol intake frequency: a few times a month Comment: aware of trip hazard Patient Tobacco Use Status: Former Tobacco user Quit Date: Tobacco use type: Cigarette Years Smoked: 25 e-Cigarette/Vaping Use: Never Used Substance Use Type: Marijuana service: No Current occupational status: retired 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 Cognitive needs: No Hearing needs: No Vision needs: No Physical Exam Vital Signs: Last Vital Signs Pulse 50 12/24/23 13:20 BP 116/68 12/24/23 13:20 BMI result Body Mass Index 29.1 Const Other: Healed scar status post right lobectomy. Left lobe is enlarged in size and nodular to palpation Assessment & Plan Assessment & Plan (1) Thyroid nodule: Code(s): E04.1 - Nontoxic single thyroid nodule Category: Medical Plan: This is a 78-year-old white female with a history of a right lobectomy and left lobe nodules FNA biopsy 09/05/2022 of her left mid pole 3.4 cm and her left mid pole 1.1 cm thyroid nodules. She appears to be clinically and biochemically euthyroid. Plan is to check the thyroid ultrasound report when it is available. If the nodules are stable in size, we will continue to follow with serial ultrasounds Coding Level of Care Code Est Pt Level 3 (96277) Diagnoses Thyroid nodule E04.1
[2023-12-24 13:20] VITALS: BP 116/68; PULSE 50; BMI 29.1
== END 2023-12-24 13:43 | disposition home or self-care (01) ==
PROVIDERS: PCP Internal Medicine; Visit Provider Internal Medicine Endocrinology, Diabetes & Metabolism
DX: E04.1 Nontoxic single thyroid nodule (principal)
CPT/HCPCS: 99213

== ENCOUNTER → 2023-12-24 13:14 | Outpatient (BNVA) | payer MEDICARE, SELFPAY | PROVIDERS: Visit Provider Internal Medicine Endocrinology, Diabetes & Metabolism | DX: E04.1 Nontoxic single thyroid nodule (principal) | CPT/HCPCS: 99212 ==

== ENCOUNTER 2024-01-13 13:12 | Outpatient (AMB) | payer MEDICARE, SELFPAY ==
--- NOTE | 2024-01-13 13:25 | A.OFFPC_ITS ---
Vital Signs 01/13/24 13:26 01/13/24 13:46 Height 5 ft 6 in Weight 176 lb 4 oz BMI 28.4 BP 130/84 130/80 Blood Pressure Location Rt brachial Lt brachial Position Sitting Sitting Pulse 69 Pulse Source Pulse Oximeter Pulse Oximetry (%) 96 Oxygen Delivery Method Room Air Intake Visit Reasons: hyptension vs hypertension CJ Allergies hay fever Allergy (Unknown, Uncoded 12/24/23 13:21) Unknown multiple environmental allergi Allergy (Unknown, Uncoded 12/24/23 13:21) Unknown Medication List - Last Reconciled 01/13/24 by Jordan Nj MD albuterol sulfate 90 mcg/actuation (ProAir HFA) 2 puffs inhalation Q6H PRN atenolol 50 mg PO DAILY 90 days betamethasone dipropionate 0.05% 1 appl topical BID PRN cetirizine (Zyrtec) 10 mg PO DAILY cranberry 400 mg PO DAILY docusate sodium 100 mg PO BID 30 days famotidine 20 mg PO BEDTIME fluticasone propionate 50 mcg/actuation (Flonase Allergy Relief) 1 spray intranasal DAILY 30 days fluticasone propionate 110 mcg/actuation (Flovent HFA) 1 puff inhalation BID PRN hydrocortisone 2.5% 1 appl topical BID PRN ipratropium bromide 2 sprays intranasal TID lorazepam 1 mg PO BEDTIME 90 days magnesium 250 mg PO BEDTIME montelukast 10 mg PO BEDTIME multivitamin 1 tab PO DAILY nystatin 1 appl topical BID valsartan 40 mg PO BID 90 days Tobacco use date assessed: 01/13/24 Fall risk assessment: No Falls in past year Last assessed Fall Risk: 01/13/24 Dental Screening Dental Screen Date: 01/13/24 Did you have a dental visit in the last 12 months?: Yes Did you have a dental problem in the last 6 months where you did not have access to dental care?: No Was dental information given to patient?: Patient has dentist HPI hyptension vs hypertension CJ HPI Details Patient is a 78-year-old female came in today to be evaluated for blood pressure Patient was taking atenolol as well as losartan times a day She was feeling lightheaded and dizzy so she started to wean herself off the blood pressure medications Currently patient is off both blood pressure medications her blood pressure is 130/80 She has been losing weight since June of last year She was 2 or 3 lb in June and she is now 176 lb That could be the reason of blood pressure getting low. Patient will continue to monitor blood pressure without to blood pressure medications and we will send me a message in 2 days with readings [facility] Medical History Multinodular thyroid AVELINO (obstructive sleep apnea) Hx of fracture of humerus Injury of axillary nerve, left arm, initial encounter Neuropathy Borderline high cholesterol HTN (hypertension) HTN (hypertension) Pain management Dyspepsia Asthma Axillary nerve injury Greater tuberosity of humerus fracture Eczema Anxiety Osteopenia Prediabetes Insomnia Surgical History Hx of cataract surgery History of dental surgery History of left shoulder replacement History of bunionectomy of both great toes History of tonsillectomy History of back surgery H/O partial thyroidectomy Family History Mother Dementia DDD (degenerative disc disease) Aortic valve disorder Osteoporosis Myelodysplastic syndrome Father Hypertension Parkinsons Depression Brother Hypertension History of hip replacement History of shoulder replacement Sister Multiple sclerosis H/O removal of cyst Sister Scoliosis H/O removal of cyst Sister Hypertension DDD (degenerative disc disease) Scoliosis Social History Housing: House Are you a primary post acute care registered nurse to a significant other at home: No Do you presently have visiting nurse or other home services: No Alcohol intake: current Alcohol intake frequency: a few times a month Comment: aware of trip hazard Patient Tobacco Use Status: Former Tobacco user Tobacco use type: Cigarette Years Smoked: 25 e-Cigarette/Vaping Use: Never Used Substance Use Type: Marijuana service: No Current occupational status: retired 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 How often do you have a drink containing alcohol?: Monthly or less 2. How many drinks containing alcohol do you have on a typical day when you are drinking?: 1 or 2 3. How often do you have six or more drinks on one occasion?: Never Total Score: 1 Score Reviewed/Action Taken: Yes АНДРЕЙ-7 AMB Questionnaire АНДРЕЙ-7 Date АНДРЕЙ - 7 assessed: 04/30/23 Source: Developed by Drs. Steffen Swanson, Wendi Butterfield, Braydon Ayala and colleagues, with an educational keyona from [facility]. Review of Systems Const Denies chills and Denies fever(s) ENT Denies epistaxis and Denies nasal discharge Card Denies chest pain Resp Denies chest congestion, Denies cough and Denies hemoptysis GI Denies diarrhea and Denies nausea Skin/Breast Denies rash Neuro Reports no additional complaints Psych Reports no additional complaints Endo Reports no additional complaints Physical exam (Primary Care) Vital Signs: Last Vital Signs Pulse 69 01/13/24 13:26 BP 130/80 01/13/24 13:46 Pulse Ox 96 01/13/24 13:26 Oxygen Delivery Method Room Air 01/13/24 13:26 BMI result Body Mass Index 28.4 Tobacco/Smoking Status: Tobacco use Status Tobacco use date assessed 01/13/24 01/13/24 13:30 Patient Tobacco Use Status Former Tobacco user 01/13/24 13:30 Tobacco use type Cigarette 01/13/24 13:30 e-Cigarette/Vaping Use Never Used 01/13/24 13:30 Thrive Assessment: Date of Thrive Assessment Date Thrive assessed 04/04/23 01/13/24 13:30 Const General: cooperative, comfortable and no acute distress Orientation/consciousness: patient oriented x3 HENMT Head: Yes normocephalic Eyes General: appearance normal, both eyes and all related structures Neck Neck: Yes supple Resp Effort & Inspection: normal respiratory effort, no cough and no stridor Cardio Rhythm: regular rhythm Heart sounds: S1 normal heart sound present and S2 normal heart sound present Skin General skin exam: turgor normal Neuro General: patient oriented x3, tone normal and moves all extremities Extrem Right lower extremity: no edema Left lower extremity: no edema Assessment and Plan Assessment & Plan (1) Hypertension, essential: Code(s): I10 - Essential (primary) hypertension Plan Patient is a 78-year-old female came in today to be evaluated for blood pressure Patient was taking atenolol as well as losartan times a day She was feeling lightheaded and dizzy so she started to wean herself off the blood pressure medications Currently patient is off both blood pressure medications her blood pressure is 130/80 She has been losing weight since June of last year She was 2 or 3 lb in June and she is now 176 lb That could be the reason of blood pressure getting low. Patient will continue to monitor blood pressure without to blood pressure medications and we will send me a message in 2 days with readings Medications: On Hold valsartan Hold Comment: Doctor's Order 40 mg PO BID 90 days 180 tabs 3RF atenolol Hold Comment: Doctor's Order 50 mg PO DAILY 90 days 90 tabs 0RF Coding Level of Care Code Est Pt Level 3 (61839) Complex EM visit Add On G2211 Diagnoses Hypertension, essential I10
[2024-01-13 13:26] VITALS: BP 130/84; PULSE 69; O2SAT 96; BMI 28.4
[2024-01-13 13:46] VITALS: BP 130/80
== END 2024-01-13 15:27 | disposition home or self-care (01) ==
PROVIDERS: PCP Internal Medicine; Visit Provider Internal Medicine
DX: I10 Essential (primary) hypertension (principal)
CPT/HCPCS: 99213; G2211

== ENCOUNTER 2024-02-24 12:52 | Outpatient (REF) | payer MEDICARE, SELFPAY ==
--- NOTE | ~2024-02-24 | MM_ITS ---
EXAMINATION: BONE DENSITOMETRY CLINICAL INDICATION: Asymptomatic menopausal state. COMPARISON: Previous BD dated 04/20/2021 and baseline BD dated 08/24/2007. TECHNIQUE: Using a [employer] DXA System (software version: 13.1) manufactured by [employer], dual-energy x-ray absorptiometry was performed of the lumbar spine and left hip. The images are of good technical quality. Summary results are attached. FINDINGS: LEFT FEMUR, NECK: Current: BMD 0.892 g/cm2, Z-score 0.8, T-score -1.0, normal. Prior: BMD 0.914 g/cm2. Baseline: BMD 0.855 g/cm2. LEFT FEMUR, TOTAL: Current: BMD 0.852 g/cm2, Z-score 0.4, T-score -1.2, osteopenia, 3.4% decrease from previous, 0.2% decrease from baseline (<5% change is not significant). Prior: BMD 0.882 g/cm2. Baseline: BMD 0.854 g/cm2. AP SPINE L1-L4: Current: BMD 1.241 g/cm2, Z-score 1.9, T-score 0.5, normal, 0.1% increase from previous, 16.5% increase from baseline (<5% change is not significant). Prior: BMD 1.240 g/cm2. Baseline: BMD 1.065 g/cm2. IDENTIFIED RISK FACTORS: Low calcium intake, menopause, history of fracture (adult). HISTORY OF FRACTURE: Humerus. MEDICATIONS: Calcium supplements or multivitamin, vitamin D. MM/XR DEXA axial skeleton IMPRESSION: 1. DIAGNOSIS: Osteopenia based on the lowest T-score value of -1.2 in the total femur applying World Health Organization criteria. 2. 10-YEAR FRACTURE RISK PREDICTION, FRAX: Major osteoporotic fracture (clinical spine, forearm, hip or shoulder) 16.9%. Hip fracture 2.9%. 3. Treatment Recommendations: NOF guidelines recommend consideration for treatment in postmenopausal women and men age 50 and older presenting with the following: -A hip or vertebral (clinical or morphometric) fracture. -T-score less than or equal to -2.5 at the femoral neck or spine after appropriate evaluation to exclude secondary causes. -Low bone mass at the hip or spine and a 10-year fracture probability by FRAX of greater than or equal to 3% for hip fracture or greater than or equal to 20% for major osteoporotic fracture based on the [place] adapted WHO algorithm. 4. Other Recommendations: All treatment decisions require clinical judgment and consideration of individual patient factors, including patient preferences, comorbidities, previous drug use, risk factors not captured in the FRAX model (e.g. frailty, falls, vitamin D deficiency, increased bone turnover, interval significant decline in bone density) and possible under or overestimation of fracture risk by FRAX. Additional medical evaluation for secondary cause of low bone mineral density may be appropriate. FUTURE SCAN RECOMMENDATION: People with diagnosed cases of osteoporosis or at high risk for fracture should have regular bone mineral density tests. For patients eligible for Medicare, routine testing is allowed once every 2 years. The testing frequency can be increased to one year for patients who have rapidly progressing disease, those who are receiving or discontinuing medical therapy to restore bone mass, or have additional risk factors.
== END 2024-02-24 12:53 | disposition home or self-care (01) ==
LOC: HO.MAMMO 12:52
PROVIDERS: PCP Internal Medicine; Visit Provider Internal Medicine
DX: Z12.31 Encounter for screening mammogram for malignant neoplasm of breast (principal); Z13.820 Encounter for screening for osteoporosis; Z78.0 Asymptomatic menopausal state
CPT/HCPCS: 77063; 77067; 77080

== ENCOUNTER → 2024-02-24 13:15 | Outpatient (BNV) | payer MEDICARE, SELFPAY | PROVIDERS: PCP Internal Medicine; Visit Provider Radiology Diagnostic Radiology | DX: Z12.31 Encounter for screening mammogram for malignant neoplasm of breast (principal) | CPT/HCPCS: 77063; 77067 ==

== ENCOUNTER 2024-03-09 12:07 | Outpatient (AMB) | payer MEDICARE, SELFPAY ==
[2024-03-09 12:08] VITALS: BP 142/84; PULSE 74; O2SAT 99; BMI 28.0
--- NOTE | 2024-03-09 12:08 | MHC.PC.OV ---
Vital Signs 03/09/24 12:08 Height 5 ft 6 in Weight 173 lb 4 oz BMI 28.0 BP 142/84 H Blood Pressure Location Rt brachial Position Sitting Pulse 74 Pulse Source Pulse Oximeter Pulse Oximetry (%) 99 Oxygen Delivery Method Room Air Intake Visit Reasons: 11 WK med F/U Allergies hay fever Allergy (Unknown, Uncoded 12/24/23 13:21) Unknown multiple environmental allergi Allergy (Unknown, Uncoded 12/24/23 13:21) Unknown Medication List - Last Reconciled 03/09/24 by Jordan Nj MD albuterol sulfate 90 mcg/actuation (ProAir HFA) 2 puffs inhalation Q6H PRN atenolol 50 mg PO DAILY 90 days betamethasone dipropionate 0.05% 1 appl topical BID PRN cetirizine (Zyrtec) 10 mg PO DAILY cranberry 400 mg PO DAILY docusate sodium 100 mg PO BID 30 days famotidine 20 mg PO BEDTIME fluticasone propionate 50 mcg/actuation (Flonase Allergy Relief) 1 spray intranasal DAILY 90 days fluticasone propionate 110 mcg/actuation (Flovent HFA) 1 puff inhalation BID PRN hydrocortisone 2.5% 1 appl topical BID PRN ipratropium bromide 2 sprays intranasal TID lorazepam 1 mg PO BEDTIME 90 days magnesium 250 mg PO BEDTIME montelukast 10 mg PO BEDTIME multivitamin 1 tab PO DAILY nystatin 1 appl topical BID valsartan 40 mg PO BID 90 days Tobacco use date assessed: 03/09/24 Fall risk assessment: No Falls in past year Last assessed Fall Risk: 03/09/24 Dental Screening Dental Screen Date: 03/09/24 Did you have a dental visit in the last 12 months?: Yes Did you have a dental problem in the last 6 months where you did not have access to dental care?: No Was dental information given to patient?: Patient has dentist HPI 11 WK med F/U HPI Details Patient is a 78-year-old female she came in today for her regular follow-up appointment Patient injured her right elbow and has developed small bowel sound which is not painful and is getting better She is waiting for insurance approval for breast reduction surgery urine incontinence , she is using pads , declined to see urologist last visit Asthma is stable no longer using Flovent inhaler Anxiety stable patient is on lorazepam 1 mg at bedtime, and Escitalopram 20 mg daily Patient is aware of side effects like , this medication has a risk of being habit forming, slowing of relfexes, dizziness, and its controlled in nature, will need 3 M visit For allergies patient is on Flonase nasal spray along with Zyrtec and montelukast, continued to have clear nasal discharge Ipratropium nasal spray did not help her Dyspepsia stable Constipation stable Hypertension: She is taking valsartan 40 mg 2 times a day and atenolol 50 mg daily blood pressure is well controlled BMI is elevated need to lose weight. Medication list reviewed Follow-up 3 months [facility] Medical History Multinodular thyroid AVELINO (obstructive sleep apnea) Hx of fracture of humerus Injury of axillary nerve, left arm, initial encounter Neuropathy Borderline high cholesterol HTN (hypertension) HTN (hypertension) Pain management Dyspepsia Asthma Axillary nerve injury Greater tuberosity of humerus fracture Eczema Anxiety Osteopenia Prediabetes Insomnia Surgical History Hx of cataract surgery History of dental surgery History of left shoulder replacement History of bunionectomy of both great toes History of tonsillectomy History of back surgery H/O partial thyroidectomy Family History Mother Dementia DDD (degenerative disc disease) Aortic valve disorder Osteoporosis Myelodysplastic syndrome Father Hypertension Parkinsons Depression Brother Hypertension History of hip replacement History of shoulder replacement Sister Multiple sclerosis H/O removal of cyst Sister Scoliosis H/O removal of cyst Sister Hypertension DDD (degenerative disc disease) Scoliosis Social History Housing: House Are you a primary family day carer to a significant other at home: No Do you presently have visiting nurse or other home services: No Alcohol intake: current Alcohol intake frequency: a few times a month Comment: aware of trip hazard Patient Tobacco Use Status: Former Tobacco user Tobacco use type: Cigarette Years Smoked: 25 e-Cigarette/Vaping Use: Never Used Substance Use Type: Marijuana service: No Current occupational status: retired 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 Cognitive needs: No Hearing needs: No Vision needs: No Questionnaire Thrive Questionnaire Date Thrive assessed: 03/09/24 I am a: Patient What is your living situation today?: I have a steady place to live Within the past 12 months, did the food you bought not last and you didn't have the money to get more?: Never true Within the past 12 months, did you worry whether your food would run out before you got money to buy more?: Never true Do you have trouble paying for medicines?: No Do you have trouble getting transportation to medical appointments?: No Do you have trouble paying your heating and electricity bill?: No Do you have trouble taking care of your child, family member or friend?: No Do you have trouble with day-to-day activities such as bathing, preparing meals, shopping, managing finances, etc.?: No Are you currently unemployed and looking for a job?: No Are you interested in more education?: No Please select the resources that you would like help with: None Currently or been in a relationship where the following occur: No concerns reported THRIVE Score: 0 AUDIT C Alcohol Use Questionnaire (AUDIT-C) 1. How often do you have a drink containing alcohol?: 2-3 times a week 2. How many drinks containing alcohol do you have on a typical day when you are drinking?: 1 or 2 3. How often do you have six or more drinks on one occasion?: Never Total Score: 3 Score Reviewed/Action Taken: Yes АНДРЕЙ-7 AMB Questionnaire АНДРЕЙ-7 Date АНДРЕЙ - 7 assessed: 03/09/24 Feeling nervous, anxious, or on edge: 1 = Several days Not being able to stop or control worryin = Several days Worrying too much about different things: 1 = Several days Trouble relaxin = Several days Being so restless that it is hard to sit still: 0 = Not at all Becoming easily annoyed or irritable: 0 = Not at all Feeling afraid as if something awful might happen: 0 = Not at all Total АНДРЕЙ-7 score (0-4 normal; 5-9 mild; 10-14 moderate; 15-21 severe): 4 Source: Developed by Drs. Steffen Swanson, Wendi Butterfield, Braydon Ayala and colleagues, with an educational keyona from [employer]. АНДРЕЙ-7 Assessment Billing АНДРЕЙ-7 Assessment Tool: АНДРЕЙ-7 Assessment 96652 Review of Systems Const Denies chills and Denies fever(s) ENT Denies epistaxis and Denies nasal discharge Card Denies chest pain Resp Denies chest congestion, Denies cough and Denies hemoptysis GI Denies diarrhea and Denies nausea Skin/Breast Denies rash Neuro Reports no additional complaints Psych Reports no additional complaints Endo Reports no additional complaints Physical exam (Primary Care) Vital Signs: Last Vital Signs Pulse 74 03/09/24 12:08 BP 142/84 H 03/09/24 12:08 Pulse Ox 99 03/09/24 12:08 Oxygen Delivery Method Room Air 03/09/24 12:08 BMI result Body Mass Index 28.0 Tobacco/Smoking Status: Tobacco use Status Tobacco use date assessed 03/09/24 03/09/24 12:12 Patient Tobacco Use Status Former Tobacco user 03/09/24 12:12 Tobacco use type Cigarette 03/09/24 12:12 e-Cigarette/Vaping Use Never Used 03/09/24 12:12 Thrive Assessment: Date of Thrive Assessment Date Thrive assessed 03/09/24 03/09/24 12:12 Currently or been in a relationship where the following occur: No concerns reported Const General: cooperative, comfortable and no acute distress Orientation/consciousness: patient oriented x3 HENMT Head: Yes normocephalic Eyes General: appearance normal, both eyes and all related structures Neck Neck: Yes supple Resp Effort & Inspection: normal respiratory effort, no cough and no stridor Cardio Rhythm: regular rhythm Heart sounds: S1 normal heart sound present and S2 normal heart sound present Skin General skin exam: turgor normal Neuro General: patient oriented x3, tone normal and moves all extremities Extrem Right lower extremity: no edema Left lower extremity: no edema Assessment and Plan Assessment & Plan (1) Hypertension, essential: Code(s): I10 - Essential (primary) hypertension (2) Major depression, recurrent: Code(s): F33.9 - Major depressive disorder, recurrent, unspecified Qualifiers: Active/Remission status: in partial remission Qualified Code(s): F33.41 - Major depressive disorder, recurrent, in partial remission (3) Asthma, moderate persistent: Code(s): J45.40 - Moderate persistent asthma, uncomplicated Qualifiers: Asthma complication type: uncomplicated Qualified Code(s): J45.40 - Moderate persistent asthma, uncomplicated (4) Dyspepsia: Code(s): R10.13 - Epigastric pain (5) Difficulty sleeping: Code(s): G47.9 - Sleep disorder, unspecified (6) Obesity due to excess calories: Code(s): E66.09 - Other obesity due to excess calories Qualifiers: Obesity classification: adult class 1 (BMI 30 - 34.9) Serious obesity comorbidity presence: with serious comorbidity Body mass index: BMI 30.0-30.9 Qualified Code(s): E66.09 - Other obesity due to excess calories; Z68.30 - Body mass index [BMI] 30.0-30.9, adult (7) Vitamin D deficiency: Code(s): E55.9 - Vitamin D deficiency, unspecified (8) Multiple allergies: Code(s): Z88.9 - Allergy status to unspecified drugs, medicaments and biological substances (9) Urine, incontinence, stress female: Code(s): N39.3 - Stress incontinence (female) (male) (10) Anxiety, generalized: Code(s): F41.1 - Generalized anxiety disorder (11) Chronic nasal discharge: Code(s): J34.89 - Other specified disorders of nose and nasal sinuses Plan Patient is a 78-year-old female she came in today for her regular follow-up appointment Patient injured her right elbow and has developed small bowel sound which is not painful and is getting better She is waiting for insurance approval for breast reduction surgery urine incontinence , she is using pads , declined to see urologist last visit Asthma is stable no longer using Flovent inhaler Anxiety stable patient is on lorazepam 1 mg at bedtime, and Escitalopram 20 mg daily Patient is aware of side effects like , this medication has a risk of being habit forming, slowing of relfexes, dizziness, and its controlled in nature, will need 3 M visit For allergies patient is on Flonase nasal spray along with Zyrtec and montelukast, continued to have clear nasal discharge Ipratropium nasal spray did not help her Dyspepsia stable Constipation stable Hypertension: She is taking valsartan 40 mg 2 times a day and atenolol 50 mg daily blood pressure is well controlled BMI is elevated need to lose weight. Medication list reviewed Follow-up 3 months Medications: Changed From fluticasone propionate 50 mcg/actuation (Flonase Allergy Relief) administer into each nostril 1 spray intranasal DAILY 90 days 3 multiple units 3RF To fluticasone propionate 50 mcg/actuation (Flonase Allergy Relief) administer into each nostril 2 sprays intranasal BID 90 days 3 multiple units 3RF Refilled lorazepam 1 mg PO BEDTIME 90 days 90 tabs 0RF Coding Level of Care Code Est Pt Level 4 (08260) Complex EM visit Add On G2211 Diagnoses Hypertension, essential I10 Recurrent major depressive disorder, in partial remission F33.41 Active/Remission status: in partial remission Moderate persistent asthma without complication J45.40 Asthma complication type: uncomplicated Dyspepsia R10.13 Difficulty sleeping G47.9 Class 1 obesity due to excess calories with serious comorbidity and body mass index (BMI) of 30.0 to 30.9 in adult E66.09; Z68.30 Obesity classification: adult class 1 (BMI 30 - 34.9) Serious obesity comorbidity presence: with serious comorbidity Body mass index: BMI 30.0-30.9 Vitamin D deficiency E55.9 Multiple allergies Z88.9 Urine, incontinence, stress female N39.3 Anxiety, generalized F41.1 Chronic nasal discharge J34.89 Additional Codes АНДРЕЙ-7 Assessment Billing - АНДРЕЙ-7 Assessment Tool: АНДРЕЙ-7 Assessment 37759 ([id number])
== END 2024-03-09 12:31 | disposition home or self-care (01) ==
PROVIDERS: PCP Internal Medicine; Visit Provider Internal Medicine
DX: I10 Essential (primary) hypertension (principal); F33.41 Major depressive disorder, recurrent, in partial remission; E66.09 Other obesity due to excess calories; Z68.30 Body mass index [BMI] 30.0-30.9, adult; J45.40 Moderate persistent asthma, uncomplicated; R10.13 Epigastric pain; G47.9 Sleep disorder, unspecified; E55.9 Vitamin D deficiency, unspecified; Z88.9 Allergy status to unspecified drugs, medicaments and biological substances; N39.3 Stress incontinence (female) (male); F41.1 Generalized anxiety disorder; J34.89 Other specified disorders of nose and nasal sinuses
CPT/HCPCS: 99214; G2211

== ENCOUNTER 2024-03-25 10:16 | Outpatient (AMB) | payer MEDICARE, SELFPAY ==
--- NOTE | 2024-03-25 10:30 | MHC.OFFWIV ---
Intake Vital Signs 03/25/24 10:32 Weight 174 lb BP 130/80 Blood Pressure Location Lt brachial Position Sitting Pulse 102 H Pulse Source Pulse Oximeter Pulse Oximetry (%) 98 Oxygen Delivery Method Room Air Intake Visit Reasons: PE- left eye inflamation Intake Note: Patient here for left eye inflammation that has been present for 2-3 days and has a small bump on inside of eyelid. Denies any change in vision, states she normally has floater but that is on the normal side for her. Patient Tobacco Use Status: Former Tobacco user Allergies hay fever Allergy (Unknown, Uncoded 03/25/24 10:34) Unknown multiple environmental allergi Allergy (Unknown, Uncoded 03/25/24 10:34) Unknown Do you need a note to return to daycare/school/sports/work: No HPI PE- left eye inflamation HPI Details This note is constructed using voice recognition software. While every effort has been made to ensure accuracy, assistant health educator errors may have been included. The patient is a 78 year old female who presents to the clinic today with left eye swelling for the past several days. She denies fever, chills, cough, shortness of breath. She notes that she started with some mild swelling and then noticed that she had a stye on the left lower lid, and has not done anything to treat it. The swelling seems to not improve. The area is mildly tender due to the swelling. She denies any difficulty with vision, or moving her eyes. She wears glasses. She has had no known trauma to the eye. [facility] Medical History Multinodular thyroid AVELINO (obstructive sleep apnea) Hx of fracture of humerus Injury of axillary nerve, left arm, initial encounter Neuropathy Borderline high cholesterol HTN (hypertension) HTN (hypertension) Pain management Dyspepsia Asthma Axillary nerve injury Greater tuberosity of humerus fracture Eczema Anxiety Osteopenia Prediabetes Insomnia Surgical History Hx of cataract surgery History of dental surgery History of left shoulder replacement History of bunionectomy of both great toes History of tonsillectomy History of back surgery H/O partial thyroidectomy Family History Mother Dementia DDD (degenerative disc disease) Aortic valve disorder Osteoporosis Myelodysplastic syndrome Father Hypertension Parkinsons Depression Brother Hypertension History of hip replacement History of shoulder replacement Sister Multiple sclerosis H/O removal of cyst Sister Scoliosis H/O removal of cyst Sister Hypertension DDD (degenerative disc disease) Scoliosis Social History Housing: House Are you a primary progressive care nurse to a significant other at home: No Do you presently have visiting nurse or other home services: No Alcohol intake: current Alcohol intake frequency: a few times a month Comment: aware of trip hazard Patient Tobacco Use Status: Former Tobacco user Tobacco use type: Cigarette Years Smoked: 25 e-Cigarette/Vaping Use: Never Used Substance Use Type: Marijuana service: No Current occupational status: retired 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 Cognitive needs: No Hearing needs: No Vision needs: No Review of Systems Const All systems reviewed & are unremarkable except as noted in HPI and below Physical Exam Vital Signs: Last Vital Signs Pulse 102 H 03/25/24 10:32 BP 130/80 03/25/24 10:32 Pulse Ox 98 03/25/24 10:32 Oxygen Delivery Method Room Air 03/25/24 10:32 Const General: cooperative, healthy appearing, comfortable, no acute distress and alert Limitations: no limitations HEENT Head: Yes normal to inspection and Yes normocephalic Ears: hearing grossly normal bilaterally General nose exam: Normal external nose present Mouth: Normal oral and palatal mucosa present and tongue normal Teeth and gingiva: dentition normal Throat: Yes posterior oropharynx normal Eyes Other: Hordeolum to left lower lid with swelling and erythema beneath the lid. Visual Haas: normal visual haas by confrontation Alignment and Position: alignment normal Conjunctivae: conjunctivae normal Sclerae: sclerae normal Corneas: corneas normal Pupils: Equal, round and reactive pupils present EOM: EOMs intact bilaterally Direct Ophthalmoscopy: normal light reflex Neck Neck: Yes normal visual inspection, Yes full ROM and Yes no lymphadenopathy Skin General skin exam: no rashes or lesions noted, elasticity normal and turgor normal Neuro Cranial nerves: Yes Equal, round and reactive pupils present Extrem General: Yes normal to inspection, Yes full ROM, Yes capillary refill normal and Yes normal exam except as noted Psych Appearance: grossly normal Mental Status: mental status grossly normal Speech and movement: Normal speech and movement present Affect: normal affect Assessment & Plan Assessment & Plan (1) Preseptal cellulitis of left eye: Code(s): L03.213 - Periorbital cellulitis Plan: Antimicrobial therapy sent to requested pharmacy. Advised patient to follow up with any worsening symptoms including cellulitis progressing around the eye which may be better evaluated in the emergency room as she could require IV antibiotics if that were to occur, or any difficulty with vision which may be better evaluated with Ophthalmology. (2) Hordeolum externum left lower eyelid: Code(s): H00.015 - Hordeolum externum left lower eyelid Plan: Advised warm compresses at least 4 times per day. Advised follow up with worsening or failure to resolve. Plan See above for full details and plan. Medications: New amoxicillin-pot clavulanate 875-125 mg 1 tab PO BID 7 days 14 tabs 0RF Coding Level of Care Code Est Pt Level 3 (12607) Diagnoses Preseptal cellulitis of left eye L03.213 Hordeolum externum left lower eyelid H00.015
[2024-03-25 10:32] VITALS: BP 130/80; PULSE 102; O2SAT 98
== END 2024-03-25 11:40 | disposition home or self-care (01) ==
PROVIDERS: PCP Internal Medicine; Visit Provider Registered Nurse
DX: L03.213 Periorbital cellulitis (principal); H00.015 Hordeolum externum left lower eyelid
CPT/HCPCS: 99213

== ENCOUNTER 2024-04-28 14:28 | Outpatient (AMB) | payer MEDICARE, SELFPAY ==
[2024-04-28 14:31] VITALS: BP 132/80; PULSE 62; O2SAT 99; BMI 28.2
--- NOTE | 2024-04-28 14:31 | MHC.PC.OV ---
Vital Signs 04/28/24 14:31 Height 5 ft 6 in Weight 175 lb BMI 28.2 BP 132/80 Blood Pressure Location Rt brachial Position Sitting Pulse 62 Pulse Source Pulse Oximeter Pulse Oximetry (%) 99 Oxygen Delivery Method Room Air Intake Visit Reasons: Pre Op Breast Surgery Allergies hay fever Allergy (Unknown, Uncoded 03/25/24 10:34) Unknown multiple environmental allergi Allergy (Unknown, Uncoded 03/25/24 10:34) Unknown Tobacco use date assessed: 03/09/24 Dental Screening Dental Screen Date: 03/09/24 HPI Pre Op Breast Surgery HPI Details Patient is 78-year-old female with a history of large breasts causing upper and mid back pain, history of multiple allergies, history of anxiety, difficulty sleeping, history of asthma controlled Came in today for preop evaluation for breast reduction surgery Date : 05/20/2024 By: Dr. Belkis Beckham Lab order placed to update her kidney function liver function and CBC EKG done today shows sinus rhythm 55 beats per minute which is baseline for the patient No acute ST T abnormality No signs of infection on exam today Addendum will be created after labs are available Patient is stable for breast reduction surgery. [facility] Medical History Multinodular thyroid AVELINO (obstructive sleep apnea) Hx of fracture of humerus Injury of axillary nerve, left arm, initial encounter Neuropathy Borderline high cholesterol HTN (hypertension) HTN (hypertension) Pain management Dyspepsia Asthma Axillary nerve injury Greater tuberosity of humerus fracture Eczema Anxiety Osteopenia Prediabetes Insomnia Surgical History Hx of cataract surgery History of dental surgery History of left shoulder replacement History of bunionectomy of both great toes History of tonsillectomy History of back surgery H/O partial thyroidectomy Family History Mother Dementia DDD (degenerative disc disease) Aortic valve disorder Osteoporosis Myelodysplastic syndrome Father Hypertension Parkinsons Depression Brother Hypertension History of hip replacement History of shoulder replacement Sister Multiple sclerosis H/O removal of cyst Sister Scoliosis H/O removal of cyst Sister Hypertension DDD (degenerative disc disease) Scoliosis Social History Housing: House Are you a primary lawn caretaker to a significant other at home: No Do you presently have visiting nurse or other home services: No Alcohol intake: current Alcohol intake frequency: a few times a month Comment: aware of trip hazard Patient Tobacco Use Status: Former Tobacco user Tobacco use type: Cigarette Years Smoked: 25 e-Cigarette/Vaping Use: Never Used Substance Use Type: Marijuana service: No Current occupational status: retired 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 1. Little interest or pleasure in doing things: not at all 2. Feeling down, depressed, or hopeless: not at all 3. Trouble falling or staying asleep, or sleeping too much: several days 4. Feeling tired or having little energy: not at all 5. Poor appetite or overeating: not at all 6. Feeling bad about yourself - or that you are a failure or have let yourself or your family down: not at all 7. Trouble concentrating on things, such as reading the newspaper or watching television: not at all 8. Moving or speaking so slowly that other people could have noticed. Or the opposite - being so fidgety or restless that you have been moving around a lot more than usual: not at all 9. Thoughts that you would be better off or of hurting yourself in some way: not at all Total score: 1 Source: Developed by Drs. Steffen Swanson, Wendi Butterfield, Braydon Ayala and colleagues, with an educational keyona from [employer]. Thrive Questionnaire Date Thrive assessed: 03/02/24 I am a: Patient What is your living situation today?: I have a steady place to live Within the past 12 months, did the food you bought not last and you didn't have the money to get more?: Never true Within the past 12 months, did you worry whether your food would run out before you got money to buy more?: Never true Do you have trouble paying for medicines?: No Do you have trouble getting transportation to medical appointments?: No Do you have trouble paying your heating and electricity bill?: No Do you have trouble taking care of your child, family member or friend?: No Do you have trouble with day-to-day activities such as bathing, preparing meals, shopping, managing finances, etc.?: No Are you currently unemployed and looking for a job?: No Are you interested in more education?: No Please select the resources that you would like help with: None Currently or been in a relationship where the following occur: No concerns reported THRIVE Score: 0 АНДРЕЙ-7 AMB Questionnaire АНДРЕЙ-7 Date АНДРЕЙ - 7 assessed: 03/09/24 Source: Developed by Drs. Steffen Swanson, Wendi Butterfield, Braydon Ayala and colleagues, with an educational keyona from [employer]. Review of Systems Const Denies chills and Denies fever(s) ENT Denies epistaxis and Denies nasal discharge Card Denies chest pain Resp Denies chest congestion, Denies cough and Denies hemoptysis GI Denies diarrhea and Denies nausea Skin/Breast Denies rash Neuro Reports no additional complaints Psych Reports no additional complaints Endo Reports no additional complaints Physical exam (Primary Care) Vital Signs: Last Vital Signs Pulse 62 04/28/24 14:31 BP 132/80 04/28/24 14:31 Pulse Ox 99 04/28/24 14:31 Oxygen Delivery Method Room Air 04/28/24 14:31 BMI result Body Mass Index 28.2 Tobacco/Smoking Status: Tobacco use Status Tobacco use date assessed 03/09/24 04/28/24 14:38 Patient Tobacco Use Status Former Tobacco user 04/28/24 14:38 Tobacco use type Cigarette 04/28/24 14:38 e-Cigarette/Vaping Use Never Used 04/28/24 14:38 PHQ-9: PHQ-9 Score PHQ-9: Total score 1 04/28/24 14:38 Thrive Assessment: Date of Thrive Assessment Date Thrive assessed 03/02/24 04/28/24 14:38 Currently or been in a relationship where the following occur: No concerns reported Const General: cooperative, comfortable and no acute distress Orientation/consciousness: patient oriented x3 HENMT Head: Yes normocephalic Eyes General: appearance normal, both eyes and all related structures Neck Neck: Yes supple Resp Effort & Inspection: normal respiratory effort, no cough and no stridor Cardio Other: Rhythm: regular rhythm Heart sounds: S1 normal heart sound present and S2 normal heart sound present Skin General skin exam: turgor normal Neuro General: patient oriented x3, tone normal and moves all extremities Extrem Right lower extremity: no edema Left lower extremity: no edema Coding Level of Care Code Est Pt Level 4 (15934) Diagnoses Pre-op evaluation Z01.818 Breast disorder in female N64.9 Hypertension, essential I10 Obesity (BMI 30.0-34.9) E66.9 Anxiety, generalized F41.1 Difficulty sleeping G47.9 Multiple allergies Z88.9 Recurrent major depressive disorder, in partial remission F33.41 Active/Remission status: in partial remission Dyspepsia R10.13 Assessment & Plan Assessment & Plan (1) Pre-op evaluation: Code(s): Z01.818 - Encounter for other preprocedural examination Category: Medical (2) Breast disorder in female: Code(s): N64.9 - Disorder of breast, unspecified Category: Medical (3) Hypertension, essential: Code(s): I10 - Essential (primary) hypertension Category: Medical (4) Obesity (BMI 30.0-34.9): Code(s): E66.9 - Obesity, unspecified Category: Medical (5) Anxiety, generalized: Code(s): F41.1 - Generalized anxiety disorder Category: Medical (6) Difficulty sleeping: Code(s): G47.9 - Sleep disorder, unspecified Category: Medical (7) Multiple allergies: Code(s): Z88.9 - Allergy status to unspecified drugs, medicaments and biological substances Category: Medical (8) Major depression, recurrent: Code(s): F33.9 - Major depressive disorder, recurrent, unspecified Category: Medical Qualifiers: Active/Remission status: in partial remission Qualified Code(s): F33.41 - Major depressive disorder, recurrent, in partial remission (9) Dyspepsia: Code(s): R10.13 - Epigastric pain Category: Medical Plan Patient is 78-year-old female with a history of large breasts causing upper and mid back pain, history of multiple allergies, dyspepsia, chronic nasal congestion, history of anxiety, difficulty sleeping, history of asthma controlled Came in today for preop evaluation for breast reduction surgery Surgery Date : 05/20/2024 By: Dr. Belkis Beckham Lab order placed to update her kidney function liver function and CBC EKG done today shows sinus rhythm 55 beats per minute which is baseline for the patient No acute ST T abnormality No signs of infection on exam today Addendum will be created after labs are available Patient is stable for breast reduction surgery. Orders: Orders Comprehensive Met. Panel Today E66.9 - Obesity, unspecified, F33.41 - Major depressive disorder, recurrent, in partial remission, F41.1 - Generalized anxiety disorder, G47.9 - Sleep disorder, unspecified, I10 - Essential (primary) hypertension, N64.9 - Disorder of breast, unspecified, R10.13 - Epigastric pain, Z01.818 - Encounter for other preprocedural examination, Z88.9 - Allergy status to unspecified drugs, medicaments and biological substances LDL Cholesterol Direct Today E66.9 - Obesity, unspecified, F33.41 - Major depressive disorder, recurrent, in partial remission, F41.1 - Generalized anxiety disorder, G47.9 - Sleep disorder, unspecified, I10 - Essential (primary) hypertension, N64.9 - Disorder of breast, unspecified, R10.13 - Epigastric pain, Z01.818 - Encounter for other preprocedural examination, Z88.9 - Allergy status to unspecified drugs, medicaments and biological substances Complete Blood Count Auto Diff Today E66.9 - Obesity, unspecified, F33.41 - Major depressive disorder, recurrent, in partial remission, F41.1 - Generalized anxiety disorder, G47.9 - Sleep disorder, unspecified, I10 - Essential (primary) hypertension, N64.9 - Disorder of breast, unspecified, R10.13 - Epigastric pain, Z01.818 - Encounter for other preprocedural examination, Z88.9 - Allergy status to unspecified drugs, medicaments and biological substances TSH reflex Free T4 Today E66.9 - Obesity, unspecified, F33.41 - Major depressive disorder, recurrent, in partial remission, F41.1 - Generalized anxiety disorder, G47.9 - Sleep disorder, unspecified, I10 - Essential (primary) hypertension, N64.9 - Disorder of breast, unspecified, R10.13 - Epigastric pain, Z01.818 - Encounter for other preprocedural examination, Z88.9 - Allergy status to unspecified drugs, medicaments and biological substances
== END 2024-04-28 15:18 | disposition home or self-care (01) ==
PROVIDERS: PCP Internal Medicine; Visit Provider Internal Medicine
DX: Z01.818 Encounter for other preprocedural examination (principal); F33.41 Major depressive disorder, recurrent, in partial remission; E66.9 Obesity, unspecified; Z68.28 Body mass index [BMI] 28.0-28.9, adult; N64.9 Disorder of breast, unspecified; I10 Essential (primary) hypertension; F41.1 Generalized anxiety disorder; G47.9 Sleep disorder, unspecified; Z88.9 Allergy status to unspecified drugs, medicaments and biological substances; R10.13 Epigastric pain

== ENCOUNTER 2024-04-28 14:28 | Outpatient (REF) | payer MEDICARE, SELFPAY ==
[2024-04-28 16:06] LABS: MANUAL DIFF FLAG NO
[2024-04-28 16:28] LABS: Basophils Absolute Auto 0.1 X10*3/uL (0.0-0.2); Basophils Percent Auto 1.2 % (0-2); Eosinophils Absolute Auto 0.3 X10*3/uL (0.0-0.4); Eosinophils Percent Auto 6.5 % (0-4); Hematocrit 42.5 % (37.0-47.0); Hemoglobin 13.6 g/dl (12.0-16.0); Imm Gran Abs Auto 0.01 X10*3/uL (0.00-0.03); Imm Gran Pct Auto 0.2 % (0.0-0.4); Lymphocytes Absolute Auto 1.7 X10*3/uL (1.2-4.9); Lymphocytes Percent Auto 32.2 % (20-40); Mean Corpuscular Hemoglobin 30.4 pg (27.0-33.0); Mean Corpuscular Volume 95.1 fL (80.0-98.0); Mean Platelet Volume 9.3 fL (9.4-12.3); Monocytes Absolute Auto 0.5 X10*3/uL (0.1-1.2); Monocytes Percent Auto 10.2 % (2-11); Neutrophils Absolute Auto 2.6 x10*3/uL (2.0-8.3); Neutrophils Percent Auto 49.7 % (45-73); Platelet Count 261 X10*3/uL (160-400); Red Blood Count 4.47 X10*6/uL (4.20-5.50); Red Cell Distribution Width 13.6 % (11.0-16.0); White Blood Count 5.2 X10*3/uL (4.8-10.8)
[2024-04-28 16:31] LABS: Alanine Aminotransferase 15 U/L (0-31); Albumin Level 4.3 g/dL (3.5-5.0); Alkaline Phosphatase 77 U/L (39-117); Anion Gap 12 (12-20); Aspartate Amino Transferase 22 U/L (5-31); Bilirubin Total 0.5 mg/dL (0.0-1.0); Blood Urea Nitrogen 17 mg/dL (9-16); Calcium 9.2 mg/dL (8.4-10.2); Carbon Dioxide 28 mmol/L (22-29); Chloride 105 mmol/L (96-108); Estimated Glomerular Filt Rate > 60; Glucose Random 101 mg/dL (60-115); Potassium 3.7 mmol/L (3.3-5.1); Sodium 141 mmol/L (135-145); Total Protein 7.5 g/dL (6.5-8.0)
[2024-04-28 16:48] LABS: TSH reflex Free T4 1.24 uIU/mL (0.32-4.0)
[2024-04-29 19:17] LABS: LDL Cholesterol Direct 118 mg/dL (<100)
== END 2024-04-28 14:29 | disposition home or self-care (01) ==
LOC: HO.HMGCLDS 14:28
PROVIDERS: PCP Internal Medicine; Visit Provider Internal Medicine
DX: Z01.818 Encounter for other preprocedural examination (principal); N64.9 Disorder of breast, unspecified; I10 Essential (primary) hypertension; E66.9 Obesity, unspecified; Z68.28 Body mass index [BMI] 28.0-28.9, adult; F41.1 Generalized anxiety disorder; G47.9 Sleep disorder, unspecified; F33.41 Major depressive disorder, recurrent, in partial remission; R10.13 Epigastric pain; Z88.9 Allergy status to unspecified drugs, medicaments and biological substances
CPT/HCPCS: 36415; 80053; 83721; 84443; 85025; 96127; 99212

== ENCOUNTER 2024-06-09 11:42 | Outpatient (AMB) | payer MEDICARE, SELFPAY ==
--- NOTE | 2024-06-09 11:44 | MHC.PC.OV ---
Vital Signs 06/09/24 11:46 Height 5 ft 6 in Weight 173 lb BMI 27.9 BP 132/80 Blood Pressure Location Rt brachial Position Sitting Pulse 71 Pulse Source Pulse Oximeter Pulse Oximetry (%) 96 Oxygen Delivery Method Room Air Intake Visit Reasons: 3 month follow up Allergies hay fever Allergy (Unknown, Uncoded 03/25/24 10:34) Unknown multiple environmental allergi Allergy (Unknown, Uncoded 03/25/24 10:34) Unknown Medication List - Last Reconciled 06/09/24 by Jordan Nj MD betamethasone dipropionate 0.05% 1 appl topical BID PRN cetirizine (Zyrtec) 10 mg PO DAILY cranberry 400 mg PO DAILY docusate sodium 100 mg PO BID 30 days famotidine 20 mg PO BEDTIME fluticasone propionate 50 mcg/actuation (Flonase Allergy Relief) 2 sprays intranasal BID 90 days hydrocortisone 2.5% 1 appl topical BID PRN lorazepam 1 mg PO BEDTIME 90 days magnesium 250 mg PO BEDTIME montelukast 10 mg PO BEDTIME multivitamin 1 tab PO DAILY nystatin 1 appl topical BID Tobacco use date assessed: 06/09/24 Fall risk assessment: No Falls in past year Last assessed Fall Risk: 06/09/24 Dental Screening Dental Screen Date: 06/09/24 Did you have a dental visit in the last 12 months?: Yes Did you have a dental problem in the last 6 months where you did not have access to dental care?: No Was dental information given to patient?: Patient has dentist HPI 3 month follow up HPI Details Patient is a 78-year-old female she came in today for her regular follow-up appointment and medication refill Patient had breast reduction surgery, the wounds are still healing She has tinea corporis rash around her breasts for that she is using nystatin powder Surgeon has sent another cream for that which she has not picked up yet urine incontinence , she is using pads , not interested in seeing urologist Continued to have rash around her lips for that I have placed referral for Dermatology Asthma is stable no longer using Flovent inhaler Anxiety stable patient is on lorazepam 1 mg at bedtime Patient is aware of side effects like , this medication has a risk of being habit forming, slowing of relfexes, dizziness, and its controlled in nature, will need 3 M visit For allergies patient is on Flonase nasal spray along with Zyrtec and montelukast, continued to have clear nasal discharge Ipratropium nasal spray did not help her Dyspepsia stable Constipation stable Hypertension: Blood pressure is stable she is off blood pressure medications Medication list reviewed Follow-up 3 months [facility] Medical History Multinodular thyroid AVELINO (obstructive sleep apnea) Hx of fracture of humerus Injury of axillary nerve, left arm, initial encounter Neuropathy Borderline high cholesterol HTN (hypertension) HTN (hypertension) Pain management Dyspepsia Asthma Axillary nerve injury Greater tuberosity of humerus fracture Eczema Anxiety Osteopenia Prediabetes Insomnia Surgical History Hx of cataract surgery History of dental surgery History of left shoulder replacement History of bunionectomy of both great toes History of tonsillectomy History of back surgery H/O partial thyroidectomy Family History Mother Dementia DDD (degenerative disc disease) Aortic valve disorder Osteoporosis Myelodysplastic syndrome Father Hypertension Parkinsons Depression Brother Hypertension History of hip replacement History of shoulder replacement Sister Multiple sclerosis H/O removal of cyst Sister Scoliosis H/O removal of cyst Sister Hypertension DDD (degenerative disc disease) Scoliosis Social History Housing: House Are you a primary child care centre manager to a significant other at home: No Do you presently have visiting nurse or other home services: No Alcohol intake: current Alcohol intake frequency: a few times a month Comment: aware of trip hazard Patient Tobacco Use Status: Former Tobacco user Tobacco use type: Cigarette Years Smoked: 25 e-Cigarette/Vaping Use: Never Used Substance Use Type: Marijuana service: No Current occupational status: retired 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 Cognitive needs: No Hearing needs: No Vision needs: No Questionnaire Thrive Questionnaire Date Thrive assessed: 03/02/24 I am a: Patient What is your living situation today?: I have a steady place to live Within the past 12 months, did the food you bought not last and you didn't have the money to get more?: Never true Within the past 12 months, did you worry whether your food would run out before you got money to buy more?: Never true Do you have trouble paying for medicines?: No Do you have trouble getting transportation to medical appointments?: No Do you have trouble paying your heating and electricity bill?: No Do you have trouble taking care of your child, family member or friend?: No Do you have trouble with day-to-day activities such as bathing, preparing meals, shopping, managing finances, etc.?: No Are you currently unemployed and looking for a job?: No Are you interested in more education?: No Please select the resources that you would like help with: None Currently or been in a relationship where the following occur: No concerns reported THRIVE Score: 0 АНДРЕЙ-7 AMB Questionnaire АНДРЕЙ-7 Date АНДРЕЙ - 7 assessed: 03/09/24 Source: Developed by Drs. Steffen Swanson, Wendi Butterfield, Braydon Ayala and colleagues, with an educational keyona from [employer]. Review of Systems Const Denies chills and Denies fever(s) ENT Denies epistaxis and Denies nasal discharge Card Denies chest pain Resp Denies chest congestion, Denies cough and Denies hemoptysis GI Denies diarrhea and Denies nausea Neuro Reports no additional complaints Psych Reports no additional complaints Endo Reports no additional complaints Physical exam (Primary Care) Vital Signs: Last Vital Signs Pulse 71 06/09/24 11:46 BP 132/80 06/09/24 11:46 Pulse Ox 96 06/09/24 11:46 Oxygen Delivery Method Room Air 06/09/24 11:46 BMI result Body Mass Index 27.9 Tobacco/Smoking Status: Tobacco use Status Tobacco use date assessed 06/09/24 06/09/24 11:49 Patient Tobacco Use Status Former Tobacco user 06/09/24 11:49 Tobacco use type Cigarette 06/09/24 11:49 e-Cigarette/Vaping Use Never Used 06/09/24 11:49 Thrive Assessment: Date of Thrive Assessment Date Thrive assessed 03/02/24 06/09/24 11:49 Currently or been in a relationship where the following occur: No concerns reported Const General: cooperative, comfortable and no acute distress Orientation/consciousness: patient oriented x3 HENMT Head: Yes normocephalic Eyes General: appearance normal, both eyes and all related structures Neck Neck: Yes supple Chest Other: Breast reduction surgery wounds still healing Resp Effort & Inspection: normal respiratory effort, no cough and no stridor Cardio Rhythm: regular rhythm Heart sounds: S1 normal heart sound present and S2 normal heart sound present Skin General skin exam: turgor normal Neuro General: patient oriented x3, tone normal and moves all extremities Extrem Right lower extremity: no edema Left lower extremity: no edema Coding Level of Care Code Est Pt Level 4 (51513) Complex EM visit Add On G2211 Diagnoses Rash R21 Anxiety, generalized F41.1 Difficulty sleeping G47.9 Multiple allergies Z88.9 Moderate persistent asthma without complication J45.40 Asthma complication type: uncomplicated Recurrent major depressive disorder, in partial remission F33.41 Active/Remission status: in partial remission Urine, incontinence, stress female N39.3 Assessment & Plan Assessment & Plan (1) Rash: Code(s): R21 - Rash and other nonspecific skin eruption Category: Medical (2) Anxiety, generalized: Code(s): F41.1 - Generalized anxiety disorder Category: Medical (3) Difficulty sleeping: Code(s): G47.9 - Sleep disorder, unspecified Category: Medical (4) Multiple allergies: Code(s): Z88.9 - Allergy status to unspecified drugs, medicaments and biological substances Category: Medical (5) Asthma, moderate persistent: Code(s): J45.40 - Moderate persistent asthma, uncomplicated Category: Medical Qualifiers: Asthma complication type: uncomplicated Qualified Code(s): J45.40 - Moderate persistent asthma, uncomplicated (6) Major depression, recurrent: Code(s): F33.9 - Major depressive disorder, recurrent, unspecified Category: Medical Qualifiers: Active/Remission status: in partial remission Qualified Code(s): F33.41 - Major depressive disorder, recurrent, in partial remission (7) Urine, incontinence, stress female: Code(s): N39.3 - Stress incontinence (female) (male) Category: Medical Plan Patient is a 78-year-old female she came in today for her regular follow-up appointment and medication refill Patient had breast reduction surgery, the wounds are still healing She has tinea corporis rash around her breasts for that she is using nystatin powder Surgeon has sent another cream for that which she has not picked up yet urine incontinence , she is using pads , not interested in seeing urologist Continued to have rash around her lips for that I have placed referral for Dermatology Asthma is stable no longer using Flovent inhaler Anxiety stable patient is on lorazepam 1 mg at bedtime Patient is aware of side effects like , this medication has a risk of being habit forming, slowing of relfexes, dizziness, and its controlled in nature, will need 3 M visit For allergies patient is on Flonase nasal spray along with Zyrtec and montelukast, continued to have clear nasal discharge Ipratropium nasal spray did not help her Dyspepsia stable Constipation stable Hypertension: Blood pressure is stable she is off blood pressure medications Medication list reviewed Follow-up 3 month Orders: Referrals Dermatology Referral R21 - Rash and other nonspecific skin eruption Medications: Refilled lorazepam 1 mg PO BEDTIME 90 days 90 tabs 0RF
[2024-06-09 11:46] VITALS: BP 132/80; PULSE 71; O2SAT 96; BMI 27.9
== END 2024-06-09 12:24 | disposition home or self-care (01) ==
PROVIDERS: PCP Internal Medicine; Visit Provider Internal Medicine
DX: R21 Rash and other nonspecific skin eruption (principal); F33.41 Major depressive disorder, recurrent, in partial remission; F41.1 Generalized anxiety disorder; G47.9 Sleep disorder, unspecified; Z88.9 Allergy status to unspecified drugs, medicaments and biological substances; J45.40 Moderate persistent asthma, uncomplicated; N39.3 Stress incontinence (female) (male)

== ENCOUNTER → 2024-06-09 11:42 | Outpatient (BNVA) | payer MEDICARE, SELFPAY | PROVIDERS: PCP Internal Medicine; Visit Provider Internal Medicine | DX: R21 Rash and other nonspecific skin eruption (principal); F41.1 Generalized anxiety disorder; G47.9 Sleep disorder, unspecified; J45.40 Moderate persistent asthma, uncomplicated; F33.41 Major depressive disorder, recurrent, in partial remission; N39.3 Stress incontinence (female) (male); Z88.9 Allergy status to unspecified drugs, medicaments and biological substances | CPT/HCPCS: 99212 ==

== ENCOUNTER 2024-10-01 12:09 | Outpatient (AMB) | payer MEDICARE, SELFPAY ==
[2024-10-01 12:26] VITALS: BP 128/84; PULSE 81; O2SAT 96; BMI 29.4
--- NOTE | 2024-10-01 12:26 | A.OFFPC_ITS ---
Vital Signs 10/01/24 12:26 Height 5 ft 6 in Weight 182 lb BMI 29.4 BP 128/84 Blood Pressure Location Rt brachial Position Sitting Pulse 81 Pulse Source Pulse Oximeter Pulse Oximetry (%) 96 Oxygen Delivery Method Room Air Intake Visit Reasons: 11 weeks f/up Allergies hay fever Allergy (Unknown, Uncoded 03/25/24 10:34) Unknown multiple environmental allergi Allergy (Unknown, Uncoded 03/25/24 10:34) Unknown Medication List - Last Reconciled 10/01/24 by Jordan Nj MD betamethasone dipropionate 0.05% 1 appl topical BID PRN cetirizine (Zyrtec) 10 mg PO DAILY cranberry fruit 400 mg PO DAILY docusate sodium 100 mg PO BID 30 days famotidine 20 mg PO BEDTIME fluticasone propionate 50 mcg/actuation (Flonase Allergy Relief) 2 sprays intranasal BID 90 days hydrocortisone 2.5% 1 appl topical BID PRN lorazepam 1 mg PO BEDTIME 90 days magnesium 250 mg PO BEDTIME montelukast 10 mg PO BEDTIME multivitamin 1 tab PO DAILY nystatin 1 appl topical BID Tobacco use date assessed: 10/01/24 Dental Screening Dental Screen Date: 06/09/24 HPI 11 weeks f/up HPI Details History - The patient is an 79-year-old female p resenting for her regular follow-up appointment for medication refill - she has been fighting a cold for the p ast 2 weeks, Initial symptoms included swollen glands, sore throat, cough, and phlegm, although these are reportedly improving. - There is no current fever, cough, or a dditional sore throat reported. - The patient has a history of shingles but has not yet been vaccinated against it due to recent illness. - She plans to receive the shingles vacc ine once she has fully recovered. Patient had breast reduction surgery, she is not doing very well and is happy with the result urine incontinence , she is using pads , not interested in seeing urologist Asthma is stable no longer using Flovent inhaler Anxiety stable patient is on lorazepam 1 mg at bedtime Patient is aware of side effects like , this medication has a risk of being habit forming, slowing of relfexes, dizziness, and its controlled in nature, will need 3 M visit For allergies patient is on Flonase nasal spray along with Zyrtec and montelukast, continued to have clear nasal discharge Ipratropium nasal spray did not help her Dyspepsia stable Constipation stable Hypertension: Blood pressure is stable she is off blood pressure medications Medication list reviewed Patient Instructions - Stay hydrated and increase fluid intak e. - Monitor symptoms and seek further [facility] attention if they worsen.. - Plan to obtain the shingles vaccine on ce feeling better. - Perform prescribed lab tests one day b efore the next visit in three months. - continue all other medications as pres cribed Review of Systems. - General: No fever no chills - Neurological: No headaches no dizziness - Cardiovascular: No syncope, no chest pain, no palpitations - Gastrointestinal: No nausea vomiting or diarrhea - Endocrine: No polyuria polydipsia no heat intolerance - Genitourinary: No dysuria , no blood in urine Physical Exam - General: No acute distress - HEENT: No acute findings - Neck: Supple - Respiratory system: Able to talk in f ull sentences, no audible wheeze - cardiovascular: S1-S2 regular in rat e and rhythm - Gastrointestinal: No pain - Extremities: No new findings - SECURITY ANALYST: Alert awake oriented x3 motor se nsory intact - Skin: Normal turgor PFSH Medical History Multinodular thyroid AVELINO (obstructive sleep apnea) Hx of fracture of humerus Injury of axillary nerve, left arm, initial encounter Neuropathy Borderline high cholesterol HTN (hypertension) HTN (hypertension) Pain management Dyspepsia Asthma Axillary nerve injury Greater tuberosity of humerus fracture Eczema Anxiety Osteopenia Prediabetes Insomnia Surgical History Hx of cataract surgery History of dental surgery History of left shoulder replacement History of bunionectomy of both great toes History of tonsillectomy History of back surgery H/O partial thyroidectomy Family History Mother Dementia DDD (degenerative disc disease) Aortic valve disorder Osteoporosis Myelodysplastic syndrome Father Hypertension Parkinsons Depression Brother Hypertension History of hip replacement History of shoulder replacement Sister Multiple sclerosis H/O removal of cyst Sister Scoliosis H/O removal of cyst Sister Hypertension DDD (degenerative disc disease) Scoliosis Social History Housing: House Are you a primary customer care voice consultant to a significant other at home: No Do you presently have visiting nurse or other home services: No Alcohol intake: current Alcohol intake frequency: a few times a month Comment: aware of trip hazard Patient Tobacco Use Status: Former Tobacco user Tobacco use type: Cigarette Years Smoked: 25 e-Cigarette/Vaping Use: Never Used Substance Use Type: Marijuana service: No Current occupational status: retired 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 Cognitive needs: No Hearing needs: No Vision needs: No Questionnaire Thrive Questionnaire Date Thrive assessed: 09/27/24 I am a: Patient What is your living situation today?: I have a steady place to live Within the past 12 months, did the food you bought not last and you didn't have the money to get more?: I choose not to answer this question Within the past 12 months, did you worry whether your food would run out before you got money to buy more?: I choose not to answer this question Do you have trouble paying for medicines?: No Do you have trouble getting transportation to medical appointments?: No Do you have trouble paying your heating and electricity bill?: No Do you have trouble taking care of your child, family member or friend?: No Do you have trouble with day-to-day activities such as bathing, preparing meals, shopping, managing finances, etc.?: No Are you currently unemployed and looking for a job?: No Are you interested in more education?: No Please select the resources that you would like help with: None Currently or been in a relationship where the following occur: No concerns reported THRIVE Score: 0 AUDIT C Alcohol Use Questionnaire (AUDIT-C) 1. How often do you have a drink containing alcohol?: 2-3 times a week 2. How many drinks containing alcohol do you have on a typical day when you are drinking?: 1 or 2 3. How often do you have six or more drinks on one occasion?: Never Total Score: 3 АНДРЕЙ-7 AMB Questionnaire АНДРЕЙ-7 Date АНДРЕЙ - 7 assessed: 03/09/24 Feeling nervous, anxious, or on edge: 1 = Several days Not being able to stop or control worryin = Not at all Worrying too much about different things: 1 = Several days Trouble relaxin = Not at all Being so restless that it is hard to sit still: 0 = Not at all Becoming easily annoyed or irritable: 0 = Not at all Feeling afraid as if something awful might happen: 1 = Several days Total АНДРЕЙ-7 score (0-4 normal; 5-9 mild; 10-14 moderate; 15-21 severe): 3 Source: Developed by Drs. Steffen Swanson, Wendi Butterfield, Braydon Ayala and colleagues, with an educational keyona from [employer]. Physical exam (Primary Care) Vital Signs: Last Vital Signs Pulse 81 10/01/24 12:26 BP 128/84 10/01/24 12:26 Pulse Ox 96 10/01/24 12:26 Oxygen Delivery Method Room Air 10/01/24 12:26 BMI result Body Mass Index 29.4 Tobacco/Smoking Status: Tobacco use Status Tobacco use date assessed 10/01/24 10/01/24 12:31 Patient Tobacco Use Status Former Tobacco user 10/01/24 12:31 Tobacco use type Cigarette 10/01/24 12:31 e-Cigarette/Vaping Use Never Used 10/01/24 12:31 Thrive Assessment: Date of Thrive Assessment Date Thrive assessed 09/27/24 10/01/24 12:31 Currently or been in a relationship where the following occur: No concerns reported Coding Level of Care Code Est Pt Level 4 (80910) Complex EM visit Add On G2211 Diagnoses Moderate persistent asthma without complication J45.40 Asthma complication type: uncomplicated Difficulty sleeping G47.9 Multiple allergies Z88.9 Common cold J00 Dyspepsia R10.13 Anxiety, generalized F41.1 Assessment & Plan Assessment & Plan (1) Asthma, moderate persistent: Code(s): J45.40 - Moderate persistent asthma, uncomplicated Category: Medical Qualifiers: Asthma complication type: uncomplicated Qualified Code(s): J45.40 - Moderate persistent asthma, uncomplicated (2) Difficulty sleeping: Code(s): G47.9 - Sleep disorder, unspecified Category: Medical (3) Multiple allergies: Code(s): Z88.9 - Allergy status to unspecified drugs, medicaments and biological substances Category: Medical (4) Common cold: Code(s): J00 - Acute nasopharyngitis [common cold] Category: Medical (5) Dyspepsia: Code(s): R10.13 - Epigastric pain Category: Medical (6) Anxiety, generalized: Code(s): F41.1 - Generalized anxiety disorder Category: Medical Plan History - The patient is an 79-year-old female presenting for her regular follow-up appointment for medication refill - she has been fighting a cold for the past 2 weeks, Initial symptoms included swollen glands, sore throat, cough, and phlegm, although these are reportedly improving. - There is no current fever, cough, or additional sore throat reported. - The patient has a history of shingles but has not yet been vaccinated against it due to recent illness. - She plans to receive the shingles vaccine once she has fully recovered. Patient had breast reduction surgery, she is not doing very well and is happy with the result urine incontinence , she is using pads , not interested in seeing urologist Asthma is stable no longer using Flovent inhaler Anxiety stable patient is on lorazepam 1 mg at bedtime Patient is aware of side effects like , this medication has a risk of being habit forming, slowing of relfexes, dizziness, and its controlled in nature, will need 3 M visit For allergies patient is on Flonase nasal spray along with Zyrtec and montelukast, continued to have clear nasal discharge Ipratropium nasal spray did not help her Dyspepsia stable Constipation stable Hypertension: Blood pressure is stable she is off blood pressure medications Medication list reviewed Patient Instructions - Stay hydrated and increase fluid intake. - Monitor symptoms and seek further medical attention if they worsen.. - Plan to obtain the shingles vaccine once feeling better. - Perform prescribed lab tests one day before the next visit in three months. - continue all other medications as prescribed Orders: Orders Complete Blood Count Auto Diff 2 Months F33.41 - Major depressive disorder, recurrent, in partial remission, F41.1 - Generalized anxiety disorder, G47.9 - Sleep disorder, unspecified, I10 - Essential (primary) hypertension, J45.40 - Moderate persistent asthma, uncomplicated, R10.13 - Epigastric pain, Z88.9 - Allergy status to unspecified drugs, medicaments and biological substances Vitamin D 25-OH (D2 and D3) 2 Months F33.41 - Major depressive disorder, recurrent, in partial remission, F41.1 - Generalized anxiety disorder, G47.9 - Sleep disorder, unspecified, I10 - Essential (primary) hypertension, J45.40 - Moderate persistent asthma, uncomplicated, R10.13 - Epigastric pain, Z88.9 - Allergy status to unspecified drugs, medicaments and biological substances Vitamin B12 2 Months F33.41 - Major depressive disorder, recurrent, in partial remission, F41.1 - Generalized anxiety disorder, G47.9 - Sleep disorder, unspecified, I10 - Essential (primary) hypertension, J45.40 - Moderate persistent asthma, uncomplicated, R10.13 - Epigastric pain, Z88.9 - Allergy status to unspecified drugs, medicaments and biological substances TSH reflex Free T4 2 Months F33.41 - Major depressive disorder, recurrent, in partial remission, F41.1 - Generalized anxiety disorder, G47.9 - Sleep disorder, unspecified, I10 - Essential (primary) hypertension, J45.40 - Moderate persistent asthma, uncomplicated, R10.13 - Epigastric pain, Z88.9 - Allergy status to unspecified drugs, medicaments and biological substances Comprehensive [place]. Panel Fast 2 Months F33.41 - Major depressive disorder, recurrent, in partial remission, F41.1 - Generalized anxiety disorder, G47.9 - Sleep disorder, unspecified, I10 - Essential (primary) hypertension, J45.40 - Moderate persistent asthma, uncomplicated, R10.13 - Epigastric pain, Z88.9 - Allergy status to unspecified drugs, medicaments and biological substances Lipid Panel 2 Months F33.41 - Major depressive disorder, recurrent, in partial remission, F41.1 - Generalized anxiety disorder, G47.9 - Sleep disorder, unspecified, I10 - Essential (primary) hypertension, J45.40 - Moderate persistent asthma, uncomplicated, R10.13 - Epigastric pain, Z88.9 - Allergy status to unspecified drugs, medicaments and biological substances Medications: Refilled lorazepam 1 mg PO BEDTIME 90 days 90 tabs 0RF
--- OUTSIDE RECORDS SUMMARY | 2024-10-01 13:53 | XMS_ITS ---
Author Organization [facility] Address [address] [place] [address] Care Team Providers Care Sales Financial Analyst Name Role Phone Clem HART, Asma Primary Care Provider Yadi Parisi Unavailable [phone] Allergies Allergen (clinical drug ingredient) Drug/Non Drug Allergy documented on EMR Reaction Allergy Type Onset Date Status indomethacin Indomethacin bad reaction / tripping Drug Allergy Active REASON FOR VISIT Pcp- 09/20, Skin problem(s), Foot pain Medications Medication SIG (Take, Route, Frequency, Duration) Notes Start Date End Date Status ZyrTEC 11/07/2023 Active Magnesium 250 MG 1 tablet with a meal Orally Once a day for 30 day(s) 11/07/2023 Active Amoxicillin-Pot Clavulanate 875-125 MG TAKE 1 TABLET BY MOUTH 2 TIMES A DAY FOR 10 DAYS Oral for 10 Days Dental Active Montelukast Sodium 10 MG Oral for 90 Days Active Multivitamin Plus Iron Adult 11/07/2023 Active LORazepam 1 MG TAKE 1 TABLET BY WILMAR TH EVERY DAY AT BEDTIME FOR 90 DAYS Oral for 90 Days Active Ipratropium [place] 0.06 % Nasal for 30 Days Not-Taking Famotidine 20 MG Oral for 90 Days Active prednisoLONE Acetate 1 % Ophthalmic for 30 Days Active Atenolol 50 MG 50 MG ORALLY DAILY F OR 90 DAYS Oral for 90 Days Active Valsartan 40 MG TAKE 1 TABLET BY WILMAR TH 2 TIMES A DAY FOR 90 DAYS Oral for 90 Days Active Fluticasone Propionate 50 MCG/ACT Nasal for 90 Days Active Social History Tobacco Use: Social History Observation Description Date Details (start date - stop date) Former Smoker NA - NA Tobacco Use/Smoking Question Answer Notes Are you a: former smoker Additional Findings: Tobacco Non-User Current no n-smoker Alcohol Screen Question Answer Notes Did you have a drink contain ing alcohol in the past year? Yes How often did you have a dri nk containing alcohol in the past year? 2 to 4 times a month (2 points) Points 2 Interpretation Negative Tobacco use other than smoking: Question Answer Notes Are you an other tobacco user? No Problems Problem Type SNOMED Code ICD Code Onset Dates Problem Status W/U Status Risk Notes Problem 762466221 Neuropathy (G62.9) Active confirmed Problem 589796465 Hallux valgus, right (M20.11) Active confirmed Problem 055618403 Hallux valgus, left (M20.12) Active confirmed Problem 090781544 Hammer toe of right foot (M20.41) Active confirmed Problem 016158936 Hammer toe of left foot (M20.42) Active confirmed Vital Signs Height 5 ft 6 in in 11/21/2023 Weight 185 lbs 11/21/2023 BMI 29.86 kg/m2 11/21/2023 Encounters Encounter Location Date Provider Diagnosis [facility] [address] [address] 11/21/2023 Yadi Irving Cellulitis of toe of right foot L03.031 ; Neuropathy G62.9 ; Hallux valgus, right M20.11 ; Hallux valgus, left M20.12 ; Hammer toe of right foot M20.41 and Hammer toe of left foot M20.42 Assessments Encounter Date Diagnosis (ICD Code) Assessment Notes Treatment Notes Treatment Clinical Notes Section Notes 11/21/2023 Cellulitis of toe of right foot (ICD-10 - L03.031) 11/21/2023 Neuropathy (ICD-10 - G62.9) 11/21/2023 Hallux valgus, right (ICD-10 - M20.11) 11/21/2023 Hallux valgus, left (ICD-10 - M20.12) 11/21/2023 Hammer toe of right foot (ICD-10 - M20.41) 11/21/2023 Hammer toe of left foot (ICD-10 - M20.42) Plan Of Treatment Next Appt Details Follow Up: prn, Reason: Progress Notes * Sandra PIERCE MDOB:[birth year] (78 yo F)Acc No.[id number]:11/21/2023 Progress Notes Patient:?Sandra Pierce Makeda Provider:?Yadi Irving DPM :1945???Age:78 Y???Sex:Female D ate:11/21/2023 Address:[address] [place], [place] [id number] Pcp:Jordan Nj MD Subjective: * Chief Complaints: * ???Pcp- 09/20Skin problem(s) Foot pain * HPI: ???Skin problems:?Nature:?redness, swelling , tender.?Location:?Right 1st Toe(s).?Course:?resolved.?Treatments:?antibiotics.?Foot Pain:?Nature:?burning tingling.?Location:?Forefoot B/L.?Duration:?several years.?Treatments:?Pt states she had nauropathy testing.? * ROS:?General/Constitutional:?Nausea?denies.?Vomiting?denies.?Hunger Thirst?denies.?Loss appetite?denies.?Chills?denies.?Fatigue?denies.?Fever?denies.?Night Sweats?denies.?Unexplained weight loss?denies.?Unexplained weight gain?denies.?HEENTM:?Dentures?denies.?Dizziness?denies.?Glasses/contacts?denies.?Retinopathy?de nies.?Blurred/double vision?denies.?TMJ?denies.?Discharge/drainage?denies.?Implants?admits.?Sore throat?denies.?Dental implants?denies.?Hard of hearing ?denies.?Difficulty chewing/swallowing/speaking?denies.?Nose bleeds?denies.?Sore mouth?denies.?Respiratory:?On Oxygen?denies.?Pneumonia/pleurisy?denies.?Bronchitis?denies.?Emphysema?denies.?C oughing?denies.?Cough blood?denies.?Shortness of breath?denies.?Wheezing?denies.?Cardiovascular:?Pacemaker?denies.?MVP?denies.?WPW?denies.?CHF?denies.?Heart attack?denies.?Septal defect?denies.?Rapid beat?denies.?Chest pain ?denies.?Atrial Fib.?denies.?Murmur/Palpitations?denies.?Gastrointestinal:?Hemorrhoids?denies.?Stomach/Abdominal pain?denies.?Dark blood stool?denies.?Irritable bowel ?, admits.?Constipation?denies.?Diarrhea?denies.?Hematology:?Swelling?denies.?Clots?denies.?Varicose Veins?denies.?Bruising?denies.?Bleeding problem?denies.?Genitourinary:?Blood urine?denies.?Frequent/Painfu/urination/bladder control?admits.?Kidney stones?denies.?Infection (UTI)?denies.?Nephropathy?denies.?sex trans dis (STD)?denies.?Prostate?denies.?Musculoskeletal:?Hammertoes?denies.?Bunions?admits.?Back Pain?admits.?Muscle Cramps/ Resting?admits.?Muscle cramps / walking?admits.?Generalized aches and pains?admits.?Weakness?denies.?Integ.:?Rice?denies.?Scars?denies.?Corns/calluses?denies.?Ingrown nails?denies.?Painful nails?denies.?Open Sores?denies.?Rashes?denies.?Neurologic:?Difficulty sleeping?admits.?Brain disorder?denies.?Numbness?admits.?Balance trouble?denies.?Confusion?denies.?Fainting/blackouts?denies.?Tingling?admits.?Tr emors?denies.? * Medical History:? * Surgical History:?tonsillect akiko back surgery herniated disc piece removed 09/25/07Cataract Left eye 07/15/2016cataract surgery 08/05/2016shoulder surgery 04/02/2020Lazer Surgery in eyes B/L 2023 * Hospitalization/Major Diagno stic Procedure:?Denies Past Hospitalization * Family History:?Mother: dece ased.?Father: , diagnosed with Unspecified essential hypertension.?Paternal Grand Mother: diagnosed with Family history of arthritis.?Maternal Grand Mother: diagnosed with Diabetic - NIDDM.?Siblings: diagnosed with Unspecified essential hypertension.? Foot Problems : Mother. * Social History:?Tobacco Use:?Tobacco Use/Smoking?Are you a:?former smoker ?Additional Findings: Tobacco Non-User?Current non-smoker ?Tobacco use other than smoking?Are you an other tobacco user??No ???Drugs/Alcohol:?Drugs?Have you used drugs other than those for medical reasons in the past 12 months??Yes ?Marijuana??Yes rarely and not lately ?Alcohol Screen?Did you have a drink containing alcohol in the past year??Yes ?How often did you have a drink containing alcohol in the past year??2 to 4 times a month (2 points) ?Points?2 ?Interpretation?Negative ???Miscellaneous:?Caffeine: yes, 1-3 cups. ?no Children. ?no Exercise, Gardening. ?Marital status: single. 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 * Medications:?TakingFluticaso ne Propionate 50 MCG/ACT Suspension Nasal Valsartan 40 MG Tablet TAKE 1 TABLET BY MOUTH 2 TIMES A DAY FOR 90 DAYS Oral Atenolol 50 MG Tablet 50 MG ORALLY DAILY FOR 90 DAYS Oral prednisoLONE Acetate 1 % Suspension Ophthalmic Famotidine 20 MG Tablet Oral LORazepam 1 MG Tablet TAKE 1 TABLET BY MOUTH EVERY DAY AT BEDTIME FOR 90 DAYS Oral Montelukast Sodium 10 MG Tablet Oral Amoxicillin-Pot Clavulanate 875-125 MG Tablet TAKE 1 TABLET BY MOUTH 2 TIMES A DAY FOR 10 DAYS Oral , Notes: DentalMagnesium 250 MG Tablet 1 tablet with a meal Orally Once a dayZyrTEC Multivitamin Plus Iron Adult Taking Fluticasone Propionate 50 MCG/ACT Suspension Nasal Taking Valsartan 40 MG Tablet TAKE 1 TABLET BY MOUTH 2 TIMES A DAY FOR 90 DAYS Oral Taking Atenolol 50 MG Tablet 50 MG ORALLY DAILY FOR 90 DAYS Oral Taking prednisoLONE Acetate 1 % Suspension Ophthalmic Taking Famotidine 20 MG Tablet Oral Taking LORazepam 1 MG Tablet TAKE 1 TABLET BY MOUTH EVERY DAY AT BEDTIME FOR 90 DAYS Oral Taking Montelukast Sodium 10 MG Tablet Oral Taking Amoxicillin-Pot Clavulanate 875-125 MG Tablet TAKE 1 TABLET BY MOUTH 2 TIMES A DAY FOR 10 DAYS Oral , Notes: DentalTaking Magnesium 250 MG Tablet 1 tablet with a meal Orally Once a dayTaking ZyrTEC Taking Multivitamin Plus Iron Adult Not-Taking/PRNIpratropium [place] 0.06 % Solution Nasal Medication List reviewed and reconciled with the patientNot- Taking/PRN Ipratropium [place] 0.06 % Solution Nasal Medication List reviewed and reconciled with the patient * Allergies:?Indomethacin: bad reaction / trippingyes[Allergies Verified] Objective: * Vitals:?Ht: 5 ft 6 in, Wt:18 5, BMI:29.86, Shoe size:Possible 9-9.5, Ht-cm: 167.64 cm, Wt-k.91 kg. * Examination: ???General Examination: ?GENERAL APPEARANCE:?Reveals a pleasant, alert, well-nourished, well- developed, well hydrated individual, who demonstrates proper attention to hygiene/body habitus, and is in no acute distress, Pt serves as own?historian for office visit today.?ORIENTED:?person, place, and time.?Neurological: ?SENSORY:? Neurological exam demonstrates reduced light touch sensation reduced sharp/dull pin prick discrimination reduced vibration sensation reduced proprioception sensation in a stocking fashion plantar aspects 5.07 monofilament test performed at plantar aspects of 5 varied sites per foot shows sensation reduced at Forefoot Pt relates paresthesia anesthesia Forefoot B/L.?Vascular: ?DP PULSES:?3/4, B/L.?PT PULSES:?3/4, B/L.?CAPILLARY FILL TIME:?immediate, all digits, B/L.?SKIN TEMPERTURE GRADIENT OF THE LOWER EXTERMITIES:?warm to cool, proximal to distal, B/L.?HAIR GROWTH/TEXTURE/ELASTICITY/TURGOR:?normal, B/L.?PIGMENTATION:?normal, B/L.?EDEMA:?absent, B/L.?Dermatologic: ?SKIN FINDINGS:?Skin exam reveals normal texture, elasticity, and turgor. There are no masses. The interspaces are clear , Skin shows sign(s) of, localized cellulitis without lymphangitis extending proximally to the level of the MPJ.?Orthopedic: ?MUSCLE STRENGTH:?5/5 all groups in a symmetrical fashion , B/L.?BUNION:? Medially prominent 1st MPJ Lateral tracking 1st MPJ incompletely reducible B/L.?DIGITAL DEFORMITIES:? Digital contracture, PIPJ, 2-5 B/L, incompl- reducible with WB, or to push-up test, no over, nor underlapping.?Nails: ?NAILS are:? No inforwn nail or cellulitis right great toe.? Assessment: * Assessment: 1.?Neuropathy - G62.9 (Prima ry)?2.?Cellulitis of toe of right foot - L03.031, Resolved?3.?Hallux valgus, right - M20.11?4.?Hallux valgus, left - M20.12?5.?Hammer toe of right foot - M20.41?6.?Hammer toe of left foot - M20.42? Plan: * Treatment: * Procedure Codes:? * Preventive Medicine:? ??Counseling:?Discussion:?-03: Office or other outpatient visit for the evaluation and management of a new patient, which required a medically appropriate history and/or examination and LOW level of DECISION MAKING for: 1 STABLE ACUTE UNCOMPLICATED PROBLEM, 2 OR MORE MINOR PROBLEMS, OR 1 STABLE CHRONIC PROBLEM, THAT POSE(S) A LOW RISK FOR MORBIDITY/MORTALITY. The visit on the day of the encounter encompassed interpreting the data and educating the patient as to the nature of their condition, treatment options available according to their individual PMH, meds, allergies, and overall health/living conditions, as well as any potential risks or complications that may occur from a failure to adhere to, and participate in, the recommended course of therapy. The discussion included a complete verbal, and/or written explanation of the examination results, any x-rays taken, the proposed diagnosis, and outline of the treatment plan. A schedule for future care needs was also explained. The patient verbalized an understanding of the instructions at this time and agreed to be an active participant in their treatment. If the patient should think of any questions or concerns after the visit, I have encouraged the patient to call the office.?Abscess/Paraonychia/Ingrown Nails:?We discussed the possible etiologies (genetic, improper nail care, shoe gear, nail trauma) which may lead to ingrown nails and/or paronychial infections. We discussed and reviewed palliative/nonsurgical/deferring definitive treatment (vs) undergoing the treatment procedures of nail avulsion(s) or PNA, which may prevent recurrence and give more lasting results. The possible risks/complications such as worsened condition/delayed healing/nonhealing/failure/recurrence/infection, the potential benefits/advantages of decreased pain/deformity, as well as alterative treatment options including applying nail softening agents/nail groove packing were discussed. No guarantees were given regarding any outcome for any procedure. The patient was educated in the length of time for the affected nail to regrow once completely healed from a nail avulsion procedure. Once the condition has completely healed, the patient was consulted on proper nail care. Patient questions such as details of each procedure, varying time to heal, activity post procedure, and shoe gear were discussed and the answers were verbally confirmed fully understood.?Neuritis/Neuropathy:?The patient was counseled on the diagnosis, possible etiologies (including mechanical stress, injury, entrapment, chemotherapy, diabetes, vertebral disk herniation if hx), treatment options, and importance for adherence to recommendations in order to address the patients Neuritis/Neuropathy. The advantages and disadvantages re: Accomidative mechanical support/offloading, Topical vs PO analgesics including aspercream/Voltaren gel/Lidoderm patches/Neurontin/Lyrica along with their potential side effects were discussed with the patient to their satisfaction. Also discussed the use of therapeutic injectable cortisone if needed. Surgical treatment, if considered an option, was discussed as well. If surgery is warranted, we discussed the potential successful outcomes as well as the possible complications such as failure, painful scar, permanent tingling/numbness/neuralgea/or intractable pain. Patient questions re: medication use, dosage, and possible side effects and drug interactions were reviewed and the answers to each understood. If the condition worsens, the patient was instructed to contact the office for an appointment. The patient verbally confirmed a full understanding of the above, Discussed Neurontin.?Shoe Gear Counseling:?The patient and I reviewed the types of shoes they should be wearing. My recommendation included obtaining a well-fitted shoe with a good supportive, non-foldable nor twistable sole, plenty of toe/room for the forefoot, and proper arch support. Based on todays examination, I recommended the patient look for new shoes, by having their feet professionally measured. We discussed that generally the best time of the day for a shoe fitting is the afternoon. Different shoes types and brands to best match the patients occupation and vocation were discussed. Specific brand selection will be up to the patient, their individual foot condition/deformities, and fit. The patient and I reviewed the standard new shoe break in period by wearing them for a few hours a day while checking for redness or sores as wear time is increased. The patient verbally confirmed to understanding the information discussed.? * Follow Up:?prn * Images: * Sign off status: Completed true * Provider:?Yadi Irving DPM Date:? Generated for Edilberto cortez/Rebecca/Cheri on:?10/01/2024 01:52 PM EST History and Physical Notes * HPI (History of Present Illness) Category Sub-Category Detail Notes Category Not es Skin problems Nature: redness , swelling , tender Location: Right 1st Toe(s) Course: resolved Treatments: antibiotics Foot Pain Nature: burning tingling Location: Forefoot B/L Duration: several years Treatments: Pt states she had na uropathy testing Examination Category Sub-Category Detail Notes Category Not es Neurological SENSORY: Neurological exa m demonstrates reduced light touch sensation reduced sharp/dull pin prick discrimination reduced vibration sensation reduced proprioception sensation in a stocking fashion plantar aspects 5.07 monofilament test performed at plantar aspects of 5 varied sites per foot shows sensation reduced at Forefoot Pt relates paresthesia anesthesia Forefoot B/L Dermatologic SKIN FINDINGS: Skin exam reveal s normal texture, elasticity, and turgor. There are no masses. The interspaces are clear , Skin shows sign(s) of, localized cellulitis without lymphangitis extending proximally to the level of the MPJ Orthopedic BUNION: Medially promine nt 1st MPJ Lateral tracking 1st MPJ incompletely reducible B/L DIGITAL DEFORMITIES: Digital contracture , PIPJ, 2-5 B/L, incompl-reducible with WB, or to push-up test, no over, nor underlapping MUSCLE STRENGTH: 5/5 all groups in a symmetrical fashion , B/L General Examination GENERAL APPEARANCE: Reveals a pleasant, alert, well- nourished, well-developed, well hydrated individual, who demonstrates proper attention to hygiene/body habitus, and is in no acute distress, Pt serves as own historian for office visit today ORIENTED: person, place, and t polo Vascular DP PULSES (B): 09/28, B/L PT PULSES (B): 3/4, B/L CAPILLARY FILL TIME: immediate, all digi ts, B/L TEMPERTURE GRADIENT (C): warm to cool, p roximal to distal, B/L TROPHIC CONDITION-TEXTURE/ELASTICITY/TURGOR/HAIR GROWTH (B): normal, B/L EDEMA (C): absent, B/L PIGMENTATION: normal, B/L Nails NAILS are: No inforwn nail or celluliti s right great toe
--- OUTSIDE RECORDS SUMMARY | 2024-10-01 13:53 | XMS_ITS | Patient Health Record ---
[facility] Address [address] [place] [address] Care Team Providers Care Business Development Specialist Name Role Phone Clem HART, Asma Primary Care Provider Yadi Parisi Unavailable [phone] Allergies Allergen (clinical drug ingredient) Drug/Non Drug Allergy documented on EMR Reaction Allergy Type Onset Date Status indomethacin Indomethacin bad reaction / tripping Drug Allergy Active Reason For Referral No Information Medications Medication SIG (Take, Route, Frequency, Duration) Notes Start Date End Date Status LORazepam 1 MG TAKE 1 TABLET BY WILMAR TH EVERY DAY AT BEDTIME FOR 90 DAYS Oral for 90 Days Active Ipratropium [place] 0.06 % Nasal for 30 Days Not-Taking Famotidine 20 MG Oral for 90 Days Active prednisoLONE Acetate 1 % Ophthalmic for 30 Days Active ZyrTEC 11/07/2023 Active Magnesium 250 MG 1 tablet with a meal Orally Once a day for 30 day(s) 11/07/2023 Active Amoxicillin-Pot Clavulanate 875-125 MG TAKE 1 TABLET BY MOUTH 2 TIMES A DAY FOR 10 DAYS Oral for 10 Days Dental Active Montelukast Sodium 10 MG Oral for 90 Days Active Atenolol 50 MG 50 MG ORALLY DAILY F OR 90 DAYS Oral for 90 Days Active Valsartan 40 MG TAKE 1 TABLET BY WILMAR TH 2 TIMES A DAY FOR 90 DAYS Oral for 90 Days Active Fluticasone Propionate 50 MCG/ACT Nasal for 90 Days Active Multivitamin Plus Iron Adult 11/07/2023 Active Social History Tobacco Use: Social History [...] Problem Status W/U Status Risk Notes Problem 366427642 Hammer toe of right foot (M20.41) Active confirmed Problem 844574389 Hammer toe of left foot (M20.42) Active confirmed Problem 281055292 Neuropathy (G62.9) Active confirmed Problem 302516889 Hallux valgus, right (M20.11) Active confirmed Problem 515247736 Hallux valgus, left (M20.12) Active confirmed Vital Signs Height 5 ft 6 in in 11/21/2023 Weight 185 lbs 11/21/2023 BMI 29.86 kg/m2 11/21/2023 Encounters Encounter Location Date Provider Diagnosis [facility] [address] [address] 11/21/2023 Yadi Irving Cellulitis of toe of right foot L03.031 ; Neuropathy G62.9 ; Hallux valgus, right M20.11 ; Hallux valgus, left M20.12 ; Hammer toe of right foot M20.41 and Hammer toe of left foot M20.42 Assessments Encounter Date Diagnosis (ICD Code) Assessment Notes Treatment Notes Treatment Clinical Notes Section Notes 11/21/2023 Neuropathy (ICD-10 - G62.9) 11/21/2023 Cellulitis of toe of right foot (ICD-10 - L03.031) 11/21/2023 Hallux valgus, right (ICD-10 - M20.11) 11/21/2023 Hallux valgus, left (ICD-10 - M20.12) 11/21/2023 Hammer toe of right foot (ICD-10 - M20.41) 11/21/2023 Hammer toe of left foot (ICD-10 - M20.42) Plan Of Treatment No Information Insurance Providers Payer Name Payer Address Payer Phone Subscriber Number Group Number Insured Name Patient Relationship to Insured Coverage Start Date Coverage End Date [facility] 65 Medicare Preferred [address] [place] [address] [id number] Sandra Villeda Self - patient is the insured Medical (General) History Medical History History ICD Code Anemia Anxiety asthma Back,Hip,and Knee pain Cataracts Diverticulosis High blood pressure Psoriasis/eczema Reflux ( GERD) Sciatica thyroid Surgical History Surgery Date(Month/Year) tonsillectomy back surgery herniated disc piece remove d 09/25/07 Cataract Left eye 07/15/2016 cataract surgery 08/05/2016 shoulder surgery 04/02/2020 Lazer Surgery in eyes B/L 2023
== END 2024-10-01 12:49 | disposition home or self-care (01) ==
PROVIDERS: PCP Internal Medicine; Visit Provider Internal Medicine
DX: J45.40 Moderate persistent asthma, uncomplicated (principal); G47.9 Sleep disorder, unspecified; Z88.9 Allergy status to unspecified drugs, medicaments and biological substances; J00 Acute nasopharyngitis [common cold]; R10.13 Epigastric pain; F41.1 Generalized anxiety disorder

== ENCOUNTER → 2024-10-01 12:09 | Outpatient (BNVA) | payer MEDICARE, SELFPAY | PROVIDERS: PCP Internal Medicine; Visit Provider Internal Medicine | DX: J45.40 Moderate persistent asthma, uncomplicated (principal); G47.9 Sleep disorder, unspecified; J00 Acute nasopharyngitis [common cold]; F41.1 Generalized anxiety disorder; R10.13 Epigastric pain; Z88.9 Allergy status to unspecified drugs, medicaments and biological substances | CPT/HCPCS: 99212 ==

== ENCOUNTER 2024-12-31 12:30 | Outpatient (AMB) | payer MEDICARE, SELFPAY ==
--- NOTE | 2024-12-31 12:33 | A.OFFPC_ITS ---
Vital Signs 12/31/24 12:35 Height 5 ft 6 in Weight 186 lb 4 oz BMI 30.1 BP 134/68 Blood Pressure Location Rt brachial Position Sitting Pulse 79 Pulse Source Pulse Oximeter Temp 98.1 F Temp Source Oral Pulse Oximetry (%) 98 Oxygen Delivery Method Room Air Intake Visit Reasons: 11 weeks f/up Allergies hay fever Allergy (Unknown, Uncoded 03/25/24 10:34) Unknown multiple environmental allergi Allergy (Unknown, Uncoded 03/25/24 10:34) Unknown Medication List - Last Reconciled 12/31/24 by Jordan Nj MD betamethasone dipropionate 0.05% 1 appl topical BID PRN cetirizine (Zyrtec) 10 mg PO DAILY cranberry fruit 400 mg PO DAILY docusate sodium 100 mg PO BID 30 days famotidine 20 mg PO BEDTIME fluticasone propionate 50 mcg/actuation (Flonase Allergy Relief) 2 sprays intranasal BID 90 days hydrocortisone 2.5% 1 appl topical BID PRN lorazepam 1 mg PO BEDTIME 90 days magnesium 250 mg PO BEDTIME montelukast 10 mg PO BEDTIME multivitamin 1 tab PO DAILY nystatin 1 appl topical BID Tobacco use date assessed: 10/01/24 Dental Screening Dental Screen Date: 06/09/24 HPI 11 weeks f/up HPI Details History - The patient is an 79-year-old female p resenting for her regular three-month follow-up appointment for medication refill - The patient reports experiencing itchi ness and sensitive skin reactions, possibly due to allergens or irritants. - She has been managing these symptoms u sing medications like hydroxyzine and topical creams, with awareness of potential drowsiness from hydroxyzine. - The patient also presents with urinary incontinence and bladder dysfunction. - The patient describes difficulty in co mpletely emptying her bladder, with occurrences of dribbling and incomplete voiding, which she has been managing with absorbent underwear for accidents. - Symptoms include inconsistent voiding and difficulty voiding fully when she feels the urge. - There is partial management with lifes tyle adaptations, such as using absorbent underwear and being cautious with fluid intake. Patient had breast reduction surgery, she is not doing very well and is happy with the result Asthma is stable no longer using Flovent inhaler Anxiety stable patient is on lorazepam 1 mg at bedtime Patient is aware of side effects like , this medication has a risk of being habit forming, slowing of relfexes, dizziness, and its controlled in nature, will need 3 M visit For allergies patient is on Flonase nasal spray along with Zyrtec and montelukast, continued to have clear nasal discharge Ipratropium nasal spray did not help her Dyspepsia stable Constipation stable Hypertension: Blood pressure is stable she is off blood pressure medications Medication list reviewed Social History: - Lives independently and manages day-to -day activities - Engages in gardening and outdoor activ ities, modified to manage skin reactions - Experiences functional challenges and adjusts daily routines due to allergies Family History: - Mother and sister have experienced uri nary issues, with the sister using absorbent pads Diagnostic Results: - Labs ordered but not yet completed; [facility] labs were expected before this visit Problem List - Allergic reactions - Xerotic eczema (implied by symptoms of itchiness and use of ointments and hydroxyzine) - Urinary incontinence - Bladder emptying dysfunction - dyspepsia - obesity - anxiety - tinea corporis - GERD - pruritus Patient Instructions - Continue using prescribed medications and lifestyle adaptations to manage symptoms - Coordinate completion of labs as previ ously ordered - Consider engaging with a urogynecologi st as referred for ongoing bladder concerns - take hydroxyzine only if feeling pruri tic and take it at night it will cause drowsiness there is a risk of fall Lorazepam script sent for next 3 months Follow-up 3 months Review of Systems - General: No fever no chills - Neurological: No headaches no dizziness - Ear nose throat: No sore throat no hearing difficulty no ear pain - Cardiovascular: No syncope, no chest pain, no palpitations - Gastrointestinal: No nausea vomiting or diarrhea - Endocrine: No polyuria polydipsia no heat intolerance - Genitourinary: No dysuria , no blood in urine Physical Exam General: No acute distress HEENT: No acute findings Neck: Supple Respiratory system: Lungs are clear Cardiovascular: S1-S2 regular in rate and rhythm Gastrointestinal: No pain Extremities: No new findings [employer]: Alert awake oriented x3 motor sensory intact Skin: Normal turgor [facility] Medical History Multinodular thyroid AVELINO (obstructive sleep apnea) Hx of fracture of humerus Injury of axillary nerve, left arm, initial encounter Neuropathy Borderline high cholesterol HTN (hypertension) HTN (hypertension) Pain management Dyspepsia Asthma Axillary nerve injury Greater tuberosity of humerus fracture Eczema Anxiety Osteopenia Prediabetes Insomnia Surgical History Hx of cataract surgery History of dental surgery History of left shoulder replacement History of bunionectomy of both great toes History of tonsillectomy History of back surgery H/O partial thyroidectomy Family History Mother Dementia DDD (degenerative disc disease) Aortic valve disorder Osteoporosis Myelodysplastic syndrome Father Hypertension Parkinsons Depression Brother Hypertension History of hip replacement History of shoulder replacement Sister Multiple sclerosis H/O removal of cyst Sister Scoliosis H/O removal of cyst Sister Hypertension DDD (degenerative disc disease) Scoliosis Social History Housing: House Are you a primary child care center administrator to a significant other at home: No Do you presently have visiting nurse or other home services: No Alcohol intake: current Alcohol intake frequency: a few times a month Comment: aware of trip hazard Patient Tobacco Use Status: Former Tobacco user Tobacco use type: Cigarette Years Smoked: 25 e-Cigarette/Vaping Use: Never Used Substance Use Type: Marijuana service: No Current occupational status: retired 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 1. Little interest or pleasure in doing things: several days 2. Feeling down, depressed, or hopeless: several days 3. Trouble falling or staying asleep, or sleeping too much: not at all 4. Feeling tired or having little energy: several days 5. Poor appetite or overeating: more than half the days 6. Feeling bad about yourself - or that you are a failure or have let yourself or your family down: several days 7. Trouble concentrating on things, such as reading the newspaper or watching television: several days 8. Moving or speaking so slowly that other people could have noticed. Or the opposite - being so fidgety or restless that you have been moving around a lot more than usual: not at all 9. Thoughts that you would be better off or of hurting yourself in some way: not at all Total score: 7 Source: Developed by Drs. Steffen Swanson, Wendi Butterfield, Braydon Ayala and colleagues, with an educational keyona from [employer]. Thrive Questionnaire Date Thrive assessed: 09/27/24 I am a: Patient What is your living situation today?: I have a steady place to live Within the past 12 months, did the food you bought not last and you didn't have the money to get more?: I choose not to answer this question Within the past 12 months, did you worry whether your food would run out before you got money to buy more?: I choose not to answer this question Do you have trouble paying for medicines?: No Do you have trouble getting transportation to medical appointments?: No Do you have trouble paying your heating and electricity bill?: No Do you have trouble taking care of your child, family member or friend?: No Do you have trouble with day-to-day activities such as bathing, preparing meals, shopping, managing finances, etc.?: No Are you currently unemployed and looking for a job?: No Are you interested in more education?: No Please select the resources that you would like help with: None Currently or been in a relationship where the following occur: No concerns reported THRIVE Score: 0 АНДРЕЙ-7 AMB Questionnaire АНДРЕЙ-7 Date АНДРЕЙ - 7 assessed: 03/09/24 Source: Developed by Drs. Steffen Swanson, Wendi Butterfield, Braydon Ayala and colleagues, with an educational keyona from [employer]. Physical exam (Primary Care) Vital Signs: Last Vital Signs Temp 98.1 F 12/31/24 12:35 Pulse 79 12/31/24 12:35 BP 134/68 12/31/24 12:35 Pulse Ox 98 12/31/24 12:35 Oxygen Delivery Method Room Air 12/31/24 12:35 BMI result Body Mass Index 30.1 Tobacco/Smoking Status: Tobacco use Status Tobacco use date assessed 10/01/24 12/31/24 12:39 Patient Tobacco Use Status Former Tobacco user 12/31/24 12:39 Tobacco use type Cigarette 12/31/24 12:39 e-Cigarette/Vaping Use Never Used 12/31/24 12:39 PHQ-9: PHQ-9 Score PHQ-9: Total score 7 12/31/24 12:55 Thrive Assessment: Date of Thrive Assessment Date Thrive assessed 09/27/24 12/31/24 12:39 Currently or been in a relationship where the following occur: No concerns reported Coding Level of Care Code Est Pt Level 4 (83719) Complex EM visit Add On G2211 Diagnoses Urine, incontinence, stress female N39.3 Moderate persistent asthma without complication J45.40 Asthma complication type: uncomplicated Difficulty sleeping G47.9 Multiple allergies Z88.9 Dyspepsia R10.13 Anxiety, generalized F41.1 Assessment & Plan Assessment & Plan (1) Urine, incontinence, stress female: Code(s): N39.3 - Stress incontinence (female) (male) Category: Medical (2) Asthma, moderate persistent: Code(s): J45.40 - Moderate persistent asthma, uncomplicated Category: Medical Qualifiers: Asthma complication type: uncomplicated Qualified Code(s): J45.40 - Moderate persistent asthma, uncomplicated (3) Difficulty sleeping: Code(s): G47.9 - Sleep disorder, unspecified Category: Medical (4) Multiple allergies: Code(s): Z88.9 - Allergy status to unspecified drugs, medicaments and biological substances Category: Medical (5) Dyspepsia: Code(s): R10.13 - Epigastric pain Category: Medical (6) Anxiety, generalized: Code(s): F41.1 - Generalized anxiety disorder Category: Medical Plan History - The patient is an 79-year-old female presenting for her regular three-month follow-up appointment for medication refill - The patient reports experiencing itchiness and sensitive skin reactions, possibly due to allergens or irritants. - She has been managing these symptoms using medications like hydroxyzine and topical creams, with awareness of potential drowsiness from hydroxyzine. - The patient also presents with urinary incontinence and bladder dysfunction. - The patient describes difficulty in completely emptying her bladder, with occurrences of dribbling and incomplete voiding, which she has been managing with absorbent underwear for accidents. - Symptoms include inconsistent voiding and difficulty voiding fully when she feels the urge. - There is partial management with lifestyle adaptations, such as using absorbent underwear and being cautious with fluid intake. Patient had breast reduction surgery, she is not doing very well and is happy with the result Asthma is stable no longer using Flovent inhaler Anxiety stable patient is on lorazepam 1 mg at bedtime Patient is aware of side effects like , this medication has a risk of being habit forming, slowing of relfexes, dizziness, and its controlled in nature, will need 3 M visit For allergies patient is on Flonase nasal spray along with Zyrtec and montelukast, continued to have clear nasal discharge Ipratropium nasal spray did not help her Dyspepsia stable Constipation stable Hypertension: Blood pressure is stable she is off blood pressure medications Medication list reviewed Social History: - Lives independently and manages day-to-day activities - Engages in gardening and outdoor activities, modified to manage skin reactions - Experiences functional challenges and adjusts daily routines due to allergies Family History: - Mother and sister have experienced urinary issues, with the sister using absorbent pads Diagnostic Results: - Labs ordered but not yet completed; last labs were expected before this visit Problem List - Allergic reactions - Xerotic eczema (implied by symptoms of itchiness and use of ointments and hydroxyzine) - Urinary incontinence - Bladder emptying dysfunction - dyspepsia - obesity - anxiety - tinea corporis - GERD - pruritus Patient Instructions - Continue using prescribed medications and lifestyle adaptations to manage symp toms - Coordinate completion of labs as previously ordered - Consider engaging with a urogynecologist as referred for ongoing bladder concerns - take hydroxyzine only if feeling pruritic and take it at night it will cause drowsiness there is a risk of fall Lorazepam script sent for next 3 months Follow-up 3 months Orders: Referrals Urogynecology Referral N39.3 - Stress incontinence (female) (male) Medications: New hydroxyzine HCl 25 mg PO BEDTIME 90 tabs 0RF itching Refilled lorazepam 1 mg PO BEDTIME 90 tabs 0RF 90 days
[2024-12-31 12:35] VITALS: BP 134/68; PULSE 79; TEMP 36.7; O2SAT 98; BMI 30.1
--- OUTSIDE RECORDS SUMMARY | 2024-12-31 12:36 | XMS_ITS | Patient Health Record ---
[facility] Address [address] [place] [address] Care Team Providers Care Account Review Specialist Name Role Phone Clem HART, Asma Primary Care Provider Yadi Parisi Unavailable [phone] Allergies Allergen (clinical drug ingredient) Drug/Non Drug [...] DAYS Oral for 90 Days Active Ipratropium Burkett 0.06 % Nasal for 30 Days Not-Taking [...] Problem Status W/U Status Risk Notes Problem [id number] Hammer toe of right foot (M20.41) Active confirmed Problem [id number] Hammer toe of left foot (M20.42) Active confirmed Problem [id number] Neuropathy (G62.9) Active confirmed Problem [id number] Hallux valgus, right (M20.11) Active confirmed Problem [id number] Hallux valgus, left (M20.12) Active confirmed Plan Of Treatment No Information Insurance Providers Payer Name Payer Address Payer Phone Subscriber Number Group Number Insured Name Patient Relationship to Insured Coverage Start Date Coverage End Date [employer] 65 Medicare Preferred [address] [place] [address] [id number] Sandra Villeda Self - patient is [...]
== END 2024-12-31 13:13 | disposition home or self-care (01) ==
LOC: HO.HMCC 12:30
PROVIDERS: PCP Internal Medicine; Visit Provider Internal Medicine
DX: N39.3 Stress incontinence (female) (male) (principal); J45.40 Moderate persistent asthma, uncomplicated; G47.9 Sleep disorder, unspecified; Z88.9 Allergy status to unspecified drugs, medicaments and biological substances; R10.13 Epigastric pain; F41.1 Generalized anxiety disorder

== ENCOUNTER → 2024-12-31 12:30 | Outpatient (BNVA) | payer MEDICARE, SELFPAY | PROVIDERS: PCP Internal Medicine; Visit Provider Internal Medicine | DX: J45.40 Moderate persistent asthma, uncomplicated (principal); N39.3 Stress incontinence (female) (male); F41.1 Generalized anxiety disorder; R33.9 Retention of urine, unspecified; N39.43 Post-void dribbling; I10 Essential (primary) hypertension; G47.9 Sleep disorder, unspecified; R10.13 Epigastric pain; Z88.9 Allergy status to unspecified drugs, medicaments and biological substances; Z79.899 Other long term (current) drug therapy | CPT/HCPCS: 96127; 99212 ==

== ENCOUNTER 2025-02-03 11:00 | Outpatient (REF) | payer MEDICARE, SELFPAY ==
--- OUTSIDE RECORDS SUMMARY | 2025-02-03 11:43 | XMS_ITS | Patient Health Record ---
[facility] Address [address] [place] [address] Care Team Providers Care Talent Management Manager Name Role Phone Clem HART, Asma Primary Care Provider Yadi Parisi Unavailable [phone] Allergies Allergen (clinical drug ingredient) Drug/Non Drug Allergy documented on EMR Reaction Allergy Type Onset Date Status indomethacin Indomethacin bad reaction / tripping Drug Allergy Active Reason For Referral No Information Medications Medication SIG (Take, Route, Frequency, Duration) Notes Start Date End Date Status LORazepam 1 MG TAKE 1 TABLET BY WILMAR TH EVERY DAY AT BEDTIME FOR 90 DAYS Oral; Duration: 90 Days Active Ipratropium Denhoff 0.06 % Nasal; Duration: 30 Days Not-Taking Famotidine 20 MG Oral; Duration: 90 Days Active prednisoLONE Acetate 1 % Ophthalmic; Dur ation: 30 Days Active ZyrTEC 11/07/2023 Active Magnesium 250 MG 1 tablet with a meal Orally Once a day; Duration: 30 day(s) 11/07/2023 Active Amoxicillin-Pot Clavulanate 875-125 MG TAKE 1 TABLET BY MOUTH 2 TIMES A DAY FOR 10 DAYS Oral; Duration: 10 Days Dental Active Montelukast Sodium 10 MG Oral; Duration: 90 Days Active Atenolol 50 MG 50 MG ORALLY DAILY F OR 90 DAYS Oral; Duration: 90 Days Active Valsartan 40 MG TAKE 1 TABLET BY WILMAR TH 2 TIMES A DAY FOR 90 DAYS Oral; Duration: 90 Days Active Fluticasone Propionate 50 MCG/ACT Nasal; Duration: 90 Days Active Multivitamin Plus Iron Adult [...] Problem Status W/U Status Risk Notes Problem Acquired hammer toe of right foot ([id number] 05) Hammer toe of right foot (M20.41) Active confirmed Problem Acquired hammer toe of left foot ([id number] 03) Hammer toe of left foot (M20.42) Active confirmed Problem Neuropathy (694887198) Neuropathy (G62.9) Active confirmed Problem Acquired hallux valgus (12707617) Hallux valgus, right (M20.11) Active confirmed Problem Acquired hallux valgus (59242780) Hallux valgus, left (M20.12) Active confirmed Plan Of Treatment No Information Insurance Providers Payer Name Payer Address Payer Phone Subscriber Number Group Number Insured Name Patient Relationship to Insured Coverage Start Date Coverage End Date [employer] 65 Medicare Preferred [address] [place] [address] [id number] Sandra Villeda Self - patient is [...]
--- OUTSIDE RECORDS SUMMARY | 2025-02-03 11:43 | XMS_ITS | Patient Health Record ---
Author Organization [facility] Address [address] [place] [address] Care Team Providers Care Sql Manager Name Role Phone Steffen Mills [phone] Reason For Referral No Information Plan Of Treatment No Information
[2025-02-03 14:26] LABS: MANUAL DIFF FLAG NO
[2025-02-03 14:36] LABS: Hematocrit 41.9 % (37.0-47.0); Hemoglobin 13.4 g/dl (12.0-16.0); Imm Gran Abs Auto 0.01 X10*3/uL (0.00-0.03); Imm Gran Pct Auto 0.3 % (0.0-0.4); Lymphocytes Absolute Auto 1.3 X10*3/uL (1.2-4.9); Mean Corpuscular HGB Conc 32.0 g/dl (31.0-35.0); Mean Corpuscular Hemoglobin 30.4 pg (27.0-33.0); Mean Corpuscular Volume 95.0 fL (80.0-98.0); NRBC Abs Auto 0.000 X10*3/uL (0.0-0.012); NRBC Pct Auto 0.0 /100WBC (0.0-0.2); Platelet Count 252 X10*3/uL (160-400); Red Blood Count 4.41 X10*6/uL (4.20-5.50); White Blood Count 3.7 X10*3/uL (4.8-10.8)
[2025-02-03 14:57] LABS: Alanine Aminotransferase 16 U/L (0-31); Albumin Level 4.3 g/dL (3.5-5.0); Alkaline Phosphatase 70 U/L (39-117); Anion Gap 9 (12-20); Aspartate Amino Transferase 30 U/L (5-31); Blood Urea Nitrogen 15 mg/dL (9-16); Calcium 8.8 mg/dL (8.4-10.2); Carbon Dioxide 28 mmol/L (22-29); Chloride 107 mmol/L (96-108); Cholesterol 193 mg/dL (<200); Estimated Glomerular Filt Rate > 60; HDL Cholesterol 70 mg/dL (>40); Potassium 4.2 mmol/L (3.3-5.1); Sodium 140 mmol/L (135-145); Total Protein 7.0 g/dL (6.5-8.0); Triglycerides 72 mg/dL (<150)
[2025-02-03 15:11] LABS: Vitamin B12 669 pg/mL (200-900)
[2025-02-07 09:12] LABS: Vitamin D 25-OH, D2 <4 ng/mL; Vitamin D 25-OH, D3 42 ng/mL; Vitamin D 25-OH, Total 42 ng/mL (30-100)
== END 2025-02-03 11:01 | disposition home or self-care (01) ==
LOC: HO.HMGCLDS 11:00
PROVIDERS: PCP Internal Medicine; Visit Provider Internal Medicine
DX: I10 Essential (primary) hypertension (principal); F33.41 Major depressive disorder, recurrent, in partial remission; R10.13 Epigastric pain; G47.9 Sleep disorder, unspecified; Z88.9 Allergy status to unspecified drugs, medicaments and biological substances; F41.1 Generalized anxiety disorder; J45.40 Moderate persistent asthma, uncomplicated
CPT/HCPCS: 36415; 80053; 80061; 82306; 82607; 84443; 85025

== ENCOUNTER 2025-03-08 11:29 | Outpatient (AMB) | payer MEDICARE, SELFPAY ==
[2025-03-08 11:33] VITALS: BP 130/72; PULSE 72; O2SAT 98; BMI 29.7
--- NOTE | 2025-03-08 11:33 | A.OFFPC_ITS ---
Vital Signs 03/08/25 11:33 Height 5 ft 6 in Weight 184 lb BMI 29.7 BP 130/72 Blood Pressure Location Lt brachial Position Sitting Pulse 72 Pulse Source Pulse Oximeter Pulse Oximetry (%) 98 Oxygen Delivery Method Room Air Intake Visit Reasons: Annual PE Allergies hay fever Allergy (Unknown, Uncoded 03/08/25 11:34) Unknown multiple environmental allergi Allergy (Unknown, Uncoded 03/08/25 11:34) Unknown Medication List - Last Reconciled 03/08/25 by Jordan Nj MD cetirizine (Zyrtec) 10 mg PO DAILY cranberry fruit 400 mg PO DAILY docusate sodium 100 mg PO BID 30 days estradiol (Yuvafem) 10 mcg vaginal BEDTIME fluticasone propionate 50 mcg/actuation (Flonase Allergy Relief) 2 sprays intranasal BID 90 days hydrocortisone 2.5% 1 appl topical BID PRN hydroxyzine HCl 25 mg PO BEDTIME lorazepam 1 mg PO BEDTIME 90 days magnesium 250 mg PO BEDTIME metronidazole 0.75% topical BID montelukast 10 mg PO BEDTIME multivitamin 1 tab PO DAILY nystatin 1 appl topical BID Tobacco use date assessed: 10/01/24 Fall risk assessment: No Falls in past year Last assessed Fall Risk: 03/08/25 Dental Screening Dental Screen Date: 03/08/25 Did you have a dental visit in the last 12 months?: Yes Did you have a dental problem in the last 6 months where you did not have access to dental care?: No Was dental information given to patient?: Patient has dentist HPI Annual PE HPI Details History of Present Illness The patient is an 79-year-old female presenting with a need for a physical examination and ongoing health concerns. Osteopenia: - Last year's bone density test indicate d osteopenia. - Patient is advised to manage with diet kit control and exercise. - No current medication recommended due to potential risk of kidney stones. Obesity: - BMI is 29.7 and current weight is 184 pounds. - Increased from 173 pounds in May. - Contributing factors include poor slee p due to dog disturbance. - Patient has a history of weight fluctu ation. Diverticulosis: - Family history noted, with multiple re latives affected. - Previous colonoscopy performed in 2005 , results not specified. - Patient does not have any current pain or symptoms. Constipation: - Patient reports occasional constipatio n despite taking fiber and stool softeners. Arthritis: - Limited range of motion due to arthrit is in the neck. - Mentioned discomfort in the left foot related to arthritis. Urinary Tract Infection (UTI): Managed by urologist - Recent episode treated with telecommun ication follow-up scheduled for March 21. - Patient uses estradiol tablets for vag inal dryness. Slightly decreased white blood cell count: - Last lab showed a white count of 3.7, previously 5.2. Poor sleep quality: - Dog disturbance causing sleep disrupti on and fatigue. Medical History: - Osteopenia - Obesity - Diverticulosis - Arthritis - Urinary Tract Infection - Constitutionally, presents with poor s leep quality Social History: - Lives with a dog, which disrupts sleep at night - Attempts weight management through [employer] control - Exercises middle range of motion due t o arthritis Family History: - Family history of diverticulosis Health Maintenance - Mammogram last completed in January e previous year with follow up planned for next year - Bone density screening last year showe d osteopenia - Dietary advice given for calcium-rich foods - Follow-up for UTI scheduled via teleco mmunication with urologist - Routine labs showed stable CBC and nor mal metabolic profile Diagnostic results - Labs: CBC stable; White blood cell cou nt was 3.7 (previously 5.2); Metabolic profile normal with normal electrolytes, kidney functions, liver enzymes, LDL cholesterol, B12, D level, and TSH Patient Instructions - Schedule mammogram and bone density fo llow-up next year - Continue using estradiol tablets for v aginal dryness through Urology - Monitor and manage weight - Maintain dietary intake of calcium-yanet h foods without supplements to prevent kidney stones Follow up end of May for medication refill Review of Systems - General: No fever no chills - Neurological: No headaches no dizzin ess - Ear nose throat: No sore throat no hearing difficulty no ear pain - Cardiovascular: No syncope, no chest pain, no palpitations - Gastrointestinal: No nausea vomiting or diarrhea - Endocrine: No polyuria polydipsia no heat intolerance - Genitourinary: No dysuria - Skin: No new complaints Physical Exam General: Cooperative, healthy appearing, comfortable, no acute distress Orientation: Patient oriented x3 Head: Normal to inspection Ears: Within normal limit visually Nose: Normal external nose present Face and sinus: Normal facial exam Eyes: Appearance normal, extraocular movement intact pupils reactive Neck: Limited range of motion due to arthritis, cricks, and pain Respiratory: Normal respiratory effort and able to speak in complete sentences. Clear to auscultation, no stridor Cardiovascular: S1 and S2 RRR GI: Normal to inspection. Soft to palpation and nontender. Reports constipation, takes fiber and stool softeners Skin: Turgor normal, no acute findings, no moles or rash noted Neuro: Patient oriented x3, motor sensory intact, balance intact, tandem pass Extremities: No new finding PFSH Medical History Multinodular thyroid AVELINO (obstructive sleep apnea) Hx of fracture of humerus Injury of axillary nerve, left arm, initial encounter Neuropathy Borderline high cholesterol HTN (hypertension) HTN (hypertension) Pain management Dyspepsia Asthma Axillary nerve injury Greater tuberosity of humerus fracture Eczema Anxiety Osteopenia Prediabetes Insomnia Surgical History Hx of cataract surgery History of dental surgery History of left shoulder replacement History of bunionectomy of both great toes History of tonsillectomy History of back surgery H/O partial thyroidectomy Family History Mother Dementia DDD (degenerative disc disease) Aortic valve disorder Osteoporosis Myelodysplastic syndrome Father Hypertension Parkinsons Depression Brother Hypertension History of hip replacement History of shoulder replacement Sister Multiple sclerosis H/O removal of cyst Sister Scoliosis H/O removal of cyst Sister Hypertension DDD (degenerative disc disease) Scoliosis Social History Housing: House Are you a primary health care law specialist to a significant other at home: No Do you presently have visiting nurse or other home services: No Alcohol intake: current Alcohol intake frequency: a few times a month Comment: aware of trip hazard Patient Tobacco Use Status: Former Tobacco user Tobacco use type: Cigarette Years Smoked: 25 e-Cigarette/Vaping Use: Never Used Substance Use Type: Marijuana service: No Current occupational status: retired 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 Cognitive needs: No Hearing needs: No Vision needs: No Questionnaire Thrive Questionnaire Date Thrive assessed: 03/08/25 I am a: Patient What is your living situation today?: I have a steady place to live Within the past 12 months, did the food you bought not last and you didn't have the money to get more?: I choose not to answer this question Within the past 12 months, did you worry whether your food would run out before you got money to buy more?: I choose not to answer this question Do you have trouble paying for medicines?: No Do you have trouble getting transportation to medical appointments?: No Do you have trouble paying your heating and electricity bill?: No Do you have trouble taking care of your child, family member or friend?: No Do you have trouble with day-to-day activities such as bathing, preparing meals, shopping, managing finances, etc.?: No Are you currently unemployed and looking for a job?: No Are you interested in more education?: No Please select the resources that you would like help with: None Currently or been in a relationship where the following occur: No concerns reported THRIVE Score: 0 АНДРЕЙ-7 AMB Questionnaire АНДРЕЙ-7 Date АНДРЕЙ - 7 assessed: 03/08/25 Feeling nervous, anxious, or on edge: 1 = Several days Not being able to stop or control worryin = Several days Worrying too much about different things: 1 = Several days Trouble relaxin = Several days Being so restless that it is hard to sit still: 0 = Not at all Becoming easily annoyed or irritable: 0 = Not at all Feeling afraid as if something awful might happen: 0 = Not at all Total АНДРЕЙ-7 score (0-4 normal; 5-9 mild; 10-14 moderate; 15-21 severe): 4 Source: Developed by Drs. Steffen Swanson, Wendi Butterfield, Braydon xiao nd colleagues, with an educational keyona from [employer]. АНДРЕЙ-7 Assessment Billing АНДРЕЙ-7 Assessment Tool: АНДРЕЙ-7 Assessment 64948 Physical exam (Primary Care) Vital Signs: Last Vital Signs Pulse 72 03/08/25 11:33 BP 130/72 03/08/25 11:33 Pulse Ox 98 03/08/25 11:33 Oxygen Delivery Method Room Air 03/08/25 11:33 BMI result Body Mass Index 29.7 Tobacco/Smoking Status: Tobacco use Status Tobacco use date assessed 10/01/24 03/08/25 11:40 Patient Tobacco Use Status Former Tobacco user 03/08/25 11:40 Tobacco use type Cigarette 03/08/25 11:40 e-Cigarette/Vaping Use Never Used 03/08/25 11:40 Thrive Assessment: Date of Thrive Assessment Date Thrive assessed 03/08/25 03/08/25 11:40 Currently or been in a relationship where the following occur: No concerns reported Coding Level of Care Code Est Pt Level 3 (91577) Est Pt Prev Care >65y(21346) Diagnoses Encounter for general adult medical examination with abnormal findings Z00.01 Urine, incontinence, stress female N39.3 Moderate persistent asthma without complication J45.40 Asthma complication type: uncomplicated Difficulty sleeping G47.9 Multiple allergies Z88.9 Dyspepsia R10.13 Anxiety, generalized F41.1 Additional Codes АНДРЕЙ-7 Assessment Billing - АНДРЕЙ-7 Assessment Tool: АНДРЕЙ-7 Assessment 06948 ([id number]) Assessment & Plan Assessment & Plan (1) Encounter for general adult medical examination with abnormal findings: Code(s): Z00.01 - Encounter for general adult medical examination with abnormal findings Category: Medical (2) Urine, incontinence, stress female: Code(s): N39.3 - Stress incontinence (female) (male) Category: Medical (3) Asthma, moderate persistent: Code(s): J45.40 - Moderate persistent asthma, uncomplicated Category: Medical Qualifiers: Asthma complication type: uncomplicated Qualified Code(s): J45.40 - Moderate persistent asthma, uncomplicated (4) Difficulty sleeping: Code(s): G47.9 - Sleep disorder, unspecified Category: Medical (5) Multiple allergies: Code(s): Z88.9 - Allergy status to unspecified drugs, medicaments and biological substances Category: Medical (6) Dyspepsia: Code(s): R10.13 - Epigastric pain Category: Medical (7) Anxiety, generalized: Code(s): F41.1 - Generalized anxiety disorder Category: Medical Plan History of Present Illness The patient is an 79-year-old female presenting with a need for a physical examination and ongoing health concerns. Osteopenia: - Last year's bone density test indicated osteopenia. - Patient is advised to manage with dietary control and exercise. - No current medication recommended due to potential risk of kidney stones. Obesity: - BMI is 29.7 and current weight is 184 pounds. - Increased from 173 pounds in May. - Contributing factors include poor sleep due to dog disturbance. - Patient has a history of weight fluctuation. Diverticulosis: - Family history noted, with multiple relatives affected. - Previous colonoscopy performed in 2005, results not specified. - Patient does not have any current pain or symptoms. Constipation: - Patient reports occasional constipation despite taking fiber and stool softeners. Arthritis: - Limited range of motion due to arthritis in the neck. - Mentioned discomfort in the left foot related to arthritis. Urinary Tract Infection (UTI): Managed by urologist - Recent episode treated with telecommunication follow-up scheduled for March 21. - Patient uses estradiol tablets for vaginal dryness. Slightly decreased white blood cell count: - Last lab showed a white count of 3.7, previously 5.2. Poor sleep quality: - Dog disturbance causing sleep disruption and fatigue. Medical History: - Osteopenia - Obesity - Diverticulosis - Arthritis - Urinary Tract Infection - Constitutionally, presents with poor sleep quality Social History: - Lives with a dog, which disrupts sleep at night - Attempts weight management through dietary control - Exercises middle range of motion due to arthritis Family History: - Family history of diverticulosis Health Maintenance - Mammogram last completed in January of the previous year with follow up planned for next year - Bone density screening last year showed osteopenia - Dietary advice given for calcium-rich foods - Follow-up for UTI scheduled via telecommunication with urologist - Routine labs showed stable CBC and normal metabolic profile Diagnostic results - Labs: CBC stable; White blood cell count was 3.7 (previously 5.2); Metabolic profile normal with normal electrolytes, kidney functions, liver enzymes, LDL cholesterol, B12, D level, and TSH Patient Instructions - Schedule mammogram and bone density follow-up next year - Continue using estradiol tablets for vaginal dryness through Urology - Monitor and manage weight - Maintain dietary intake of calcium-rich foods without supplements to prevent kidney stones Follow up end of May for medication refill Medications: Refilled lorazepam 1 mg PO BEDTIME 90 tabs 0RF 90 days
--- OUTSIDE RECORDS SUMMARY | 2025-03-08 12:37 | XMS_ITS | Patient Health Record ---
Author Organization [facility] Address [address] [place] [id number] Care Team Providers Care Wildlife Ecology Professor Name Role Phone Steffen Mills [phone] Reason For Referral No Information Plan Of Treatment No Information
--- OUTSIDE RECORDS SUMMARY | 2025-03-08 12:37 | XMS_ITS | Patient Health Record ---
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 Name Role Phone Clem HART, Asma Primary Care Provider Yadi Parisi Unavailable [phone] Allergies Allergen (clinical drug ingredient) Drug/Non Drug [...] DAYS Oral; Duration: 90 Days Active Ipratropium Fingal 0.06 % Nasal; Duration: 30 Days Not-Taking [...] Problem Acquired hammer toe of right foot ([id number]) Hammer toe of right foot (M20.41) Active confirmed Problem Acquired hammer toe of left foot ([id number] 03) Hammer toe of left foot (M20.42) Active confirmed Problem Neuropathy ([id number]) Neuropathy (G62.9) Active confirmed Problem Acquired hallux valgus (53048628) Hallux valgus, right (M20.11) Active confirmed Problem Acquired hallux valgus (40407148) Hallux valgus, left (M20.12) Active confirmed Plan Of Treatment No Information Insurance Providers Payer Name Payer Address Payer Phone Subscriber Number Group Number Insured Name Patient Relationship to Insured Coverage Start Date Coverage End Date [employer] 65 Medicare Preferred [address] [place] [address] [phone] [id number] Sandra Villeda Self - patient is [...]
== END 2025-03-08 12:03 | disposition home or self-care (01) ==
LOC: HO.HMCC 11:30
PROVIDERS: PCP Internal Medicine; Visit Provider Internal Medicine
DX: Z00.01 Encounter for general adult medical examination with abnormal findings (principal); N39.3 Stress incontinence (female) (male); J45.40 Moderate persistent asthma, uncomplicated; G47.9 Sleep disorder, unspecified; Z88.9 Allergy status to unspecified drugs, medicaments and biological substances; R10.13 Epigastric pain; F41.1 Generalized anxiety disorder

== ENCOUNTER → 2025-03-08 11:29 | Outpatient (BNVA) | payer MEDICARE, SELFPAY | PROVIDERS: PCP Internal Medicine; Visit Provider Internal Medicine | DX: Z00.01 Encounter for general adult medical examination with abnormal findings (principal); N39.3 Stress incontinence (female) (male); M85.80 Other specified disorders of bone density and structure, unspecified site; K57.90 Diverticulosis of intestine, part unspecified, without perforation or abscess without bleeding; K59.00 Constipation, unspecified; J45.40 Moderate persistent asthma, uncomplicated; G47.9 Sleep disorder, unspecified; R10.13 Epigastric pain; F41.1 Generalized anxiety disorder; Z88.9 Allergy status to unspecified drugs, medicaments and biological substances; Z87.442 Personal history of urinary calculi | CPT/HCPCS: 96127; 99397 ==

== ENCOUNTER 2025-06-21 12:55 | Outpatient (AMB) | payer MEDICARE, SELFPAY ==
[2025-06-21 12:58] VITALS: BP 132/70; PULSE 77; O2SAT 96
--- NOTE | 2025-06-21 12:58 | MHC.PC.OV ---
Vital Signs 06/21/25 12:58 Height 5 ft 6 in Weight 186 lb BMI 30.0 BP 132/70 Blood Pressure Location Lt brachial Position Sitting Pulse 77 Pulse Source Pulse Oximeter Pulse Oximetry (%) 96 Intake Visit Reasons: 3 months f/up - see comments Allergies hay fever Allergy (Unknown, Uncoded 06/21/25 12:58) Unknown multiple environmental allergi Allergy (Unknown, Uncoded 06/21/25 12:58) Unknown Medication List - Last Reconciled 06/21/25 by Jordan Nj MD cetirizine (Zyrtec) 10 mg PO DAILY cranberry fruit 400 mg PO DAILY docusate sodium 100 mg PO BID 30 days estradiol (Yuvafem) 10 mcg vaginal BEDTIME famotidine 20 mg PO BEDTIME fluticasone propionate 50 mcg/actuation (Flonase Allergy Relief) 2 sprays intranasal BID 90 days hydrocortisone 2.5% 1 appl topical BID PRN hydroxyzine HCl 25 mg PO BEDTIME lorazepam 1 mg PO BEDTIME 90 days magnesium 250 mg PO BEDTIME metronidazole 0.75% topical BID montelukast 10 mg PO BEDTIME multivitamin 1 tab PO DAILY nystatin 1 appl topical BID Tobacco use date assessed: 10/01/24 Fall risk assessment: No Falls in past year Last assessed Fall Risk: 06/21/25 Dental Screening Dental Screen Date: 03/08/25 HPI HPI Comments History of Present Illness Details History of Present Illness The patient is an 79 year old individual presenting with severe right hip pain. Right Hip Pain: - The patient has been experiencing severe right hip pain for a couple of months, which is not improving. - The pain is present with walking, and the patient has a habit of holding the hip upon standing and walking. - Symptoms seem to improve with activity but worsen after resting for 5-10 minutes, which is suggestive of osteoarthritis. - The pain is severe enough to cause difficulty with personal hygiene. - The patient has tried changing beds without relief and has not taken any pain medication like ibuprofen due to concerns about its effect on blood pressure. Allergies: - The patient has a history of severe allergies, which are currently stable, and takes montelukast. Anxiety: - The patient has some anxiety, for which lorazepam is taken. Gastroesophageal Reflux Disease: - GERD is noted to be stable with famotidine 20 mg. Constipation: - Constipation is stable with docusate. Pruritus: - The patient experiences random itching episodes which are controlled with hydroxyzine as needed. Health Maintenance: - The patient is due for a mammogram and a bone density scan, with the last bone density scan being two years ago. Medical History: - Severe allergies, stable - Anxiety - GERD, stable - Constipation, stable - Random itching episodes Medications: - Famotidine 20 mg for GERD - Hydroxyzine as needed for itching - Lorazepam for anxiety - Montelukast for allergies - Estradiol - Docusate for constipation PFSH Medical History Multinodular thyroid AVELINO (obstructive sleep apnea) Hx of fracture of humerus Injury of axillary nerve, left arm, initial encounter Neuropathy Borderline high cholesterol HTN (hypertension) HTN (hypertension) Pain management Dyspepsia Asthma Axillary nerve injury Greater tuberosity of humerus fracture Eczema Anxiety Osteopenia Prediabetes Insomnia Surgical History Hx of cataract surgery History of dental surgery History of left shoulder replacement History of bunionectomy of both great toes History of tonsillectomy History of back surgery H/O partial thyroidectomy Family History Mother Dementia DDD (degenerative disc disease) Aortic valve disorder Osteoporosis Myelodysplastic syndrome Father Hypertension Parkinsons Depression Brother Hypertension History of hip replacement History of shoulder replacement Sister Multiple sclerosis H/O removal of cyst Sister Scoliosis H/O removal of cyst Sister Hypertension DDD (degenerative disc disease) Scoliosis Social History Housing: House Are you a primary patient care coordinator to a significant other at home: No Do you presently have visiting nurse or other home services: No Alcohol intake: current Alcohol intake frequency: a few times a month Comment: aware of trip hazard Patient Tobacco Use Status: Former Tobacco user Tobacco use type: Cigarette Years Smoked: 25 e-Cigarette/Vaping Use: Never Used Substance Use Type: Marijuana service: No Current occupational status: retired 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 Cognitive needs: No Hearing needs: No Vision needs: No Questionnaire Thrive Questionnaire Date Thrive assessed: 09/27/24 I am a: Patient What is your living situation today?: I have a steady place to live Within the past 12 months, did the food you bought not last and you didn't have the money to get more?: I choose not to answer this question Within the past 12 months, did you worry whether your food would run out before you got money to buy more?: I choose not to answer this question Do you have trouble paying for medicines?: No Do you have trouble getting transportation to medical appointments?: No Do you have trouble paying your heating and electricity bill?: No Do you have trouble taking care of your child, family member or friend?: No Do you have trouble with day-to-day activities such as bathing, preparing meals, shopping, managing finances, etc.?: No Are you currently unemployed and looking for a job?: No Are you interested in more education?: No Please select the resources that you would like help with: None Currently or been in a relationship where the following occur: No concerns reported THRIVE Score: 0 АНДРЕЙ-7 AMB Questionnaire АНДРЕЙ-7 Date АНДРЕЙ - 7 assessed: 03/08/25 Source: Developed by Drs. Steffen Swanson, Wendi Butterfield, Braydon Ayala and colleagues, with an educational keyona from [employer]. Review of Systems Narrative Review of Systems - General: No fever no chills - Neurological: No headaches no dizziness - Ear nose throat: No sore throat no hearing difficulty no ear pain - Cardiovascular: No syncope, no chest pain, no palpitations - Gastrointestinal: No nausea vomiting or diarrhea - Endocrine: No polyuria polydipsia no heat intolerance - Genitourinary: No dysuria , no blood in urine Physical exam (Primary Care) Vital Signs: Last Vital Signs Pulse 77 06/21/25 12:58 BP 132/70 06/21/25 12:58 Pulse Ox 96 06/21/25 12:58 BMI result Body Mass Index 30.0 Tobacco/Smoking Status: Tobacco use Status Tobacco use date assessed 10/01/24 06/21/25 12:59 Patient Tobacco Use Status Former Tobacco user 06/21/25 12:59 Tobacco use type Cigarette 06/21/25 12:59 e-Cigarette/Vaping Use Never Used 06/21/25 12:59 Thrive Assessment: Date of Thrive Assessment Date Thrive assessed 09/27/24 06/21/25 12:59 Currently or been in a relationship where the following occur: No concerns reported Narrative Physical Exam General: No acute distress HEENT: No acute findings Neck: Supple Respiratory system: Able to talk in full sentences, no audible wheeze Cardiovascular: S1-S2 regular in rate and rhythm Gastrointestinal: No pain Extremities: Right hip pain, patient reports difficulty walking and severe pain 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 awake oriented x3 motor intact Skin: Normal turgor Coding Level of Care Code Est Pt Level 4 (78675) Complex visit Add On G2211 Diagnoses Hip pain, right M25.551 Menopausal state N95.1 Moderate persistent asthma without complication J45.40 Asthma complication type: uncomplicated Difficulty sleeping G47.9 Multiple allergies Z88.9 Dyspepsia R10.13 Anxiety, generalized F41.1 Assessment & Plan Assessment & Plan (1) Hip pain, right: Code(s): M25.551 - Pain in right hip Category: Medical (2) Menopausal state: Code(s): N95.1 - Menopausal and female climacteric states Category: Medical (3) Asthma, moderate persistent: Code(s): J45.40 - Moderate persistent asthma, uncomplicated Category: Medical Qualifiers: Asthma complication type: uncomplicated Qualified Code(s): J45.40 - Moderate persistent asthma, uncomplicated (4) Difficulty sleeping: Code(s): G47.9 - Sleep disorder, unspecified Category: Medical (5) Multiple allergies: Code(s): Z88.9 - Allergy status to unspecified drugs, medicaments and biological substances Category: Medical (6) Dyspepsia: Code(s): R10.13 - Epigastric pain Category: Medical (7) Anxiety, generalized: Code(s): F41.1 - Generalized anxiety disorder Category: Medical Plan Problem List - Right hip pain - Allergies - Anxiety - Gastroesophageal reflux disease - Constipation - Pruritus - Preventative care: Mammogram screening - Preventative care: Bone density screening Plan - An X-ray of the right hip will be ordered to be completed today. - A prescription for naproxen (Aleve) will be sent to the pharmacy, to be taken one tablet with breakfast and one with supper for at least one week. - A prescription for a medication to protect the stomach will be sent to be taken with the naproxen. - An order will be placed for a mammogram. - An order will be placed for a bone density scan. - If hip pain persists after one week of treatment, the patient should call for a potential referral to an entry specialists. - The patient's other chronic conditions (allergies, anxiety, GERD, constipation) are stable, and the patient will continue with the current medication regimen. - asthma is stable f.u 3 M Orders: Orders MM tomosynthesis screening BI Today N95.1 - Menopausal and female climacteric states, Z12.31 - Encounter for screening mammogram for malignant neoplasm of breast XR DEXA axial skeleton Today N95.1 - Menopausal and female climacteric states, Z12.31 - Encounter for screening mammogram for malignant neoplasm of breast XR hip RT min 2V Today M25.551 - Pain in right hip Medications: New naproxen (EC-Naprosyn) 500 mg PO BID 14 tabs 0RF pain 7 days pantoprazole 20 mg PO DAILY 7 tabs 0RF 7 days Refilled lorazepam 1 mg PO BEDTIME 90 tabs 0RF 90 days
--- OUTSIDE RECORDS SUMMARY | 2025-06-21 16:38 | XMS_ITS | Patient Health Record ---
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
--- OUTSIDE RECORDS SUMMARY | 2025-06-21 16:38 | XMS_ITS | Patient Health Record ---
[facility] Address [address] [place] [address] Care Team Providers Care Business Systems Manager Name Role Phone Clem HART, Asma Primary Care Provider Yadi Parisi Unavailable [phone] Allergies Allergen (clinical drug ingredient) Drug/Non Drug [...] DAYS Oral; Duration: 90 Days Active Ipratropium [place] 0.06 % Nasal; Duration: 30 Days Not-Taking [...] Problem Acquired hammer toe of right foot ([id number]) Hammer toe of right foot (M20.41) Active confirmed Problem Acquired hammer toe of left foot ([id number] 03) Hammer toe of left foot (M20.42) Active confirmed Problem Neuropathy ([id number]) Neuropathy (G62.9) Active confirmed Problem Acquired hallux valgus (68607200) Hallux valgus, right (M20.11) Active confirmed Problem Acquired hallux valgus (10394818) Hallux valgus, left (M20.12) Active confirmed Plan Of Treatment No Information Insurance Providers Payer Name Payer Address Payer Phone Subscriber Number Group Number Insured Name Patient Relationship to Insured Coverage Start Date Coverage End Date [employer] 65 Medicare Preferred [address] [place] [address] [id number] Sandra Villeda Self - patient is [...]
== END 2025-06-21 13:28 | disposition home or self-care (01) ==
LOC: HO.HMCC 12:56
PROVIDERS: PCP Internal Medicine; Visit Provider Internal Medicine
DX: M25.551 Pain in right hip (principal); N95.1 Menopausal and female climacteric states; J45.40 Moderate persistent asthma, uncomplicated; G47.9 Sleep disorder, unspecified; Z88.9 Allergy status to unspecified drugs, medicaments and biological substances; R10.13 Epigastric pain; F41.1 Generalized anxiety disorder

== ENCOUNTER 2025-06-21 12:55 | Outpatient (REF) | payer MEDICARE, SELFPAY ==
--- NOTE | ~2025-06-21 | XR_ITS ---
EXAMINATION: XR HIP, RIGHT CLINICAL INFORMATION: M25.551 - Pain in right hip COMPARISON: None available. TECHNIQUE: Two views of the right hip. FINDINGS: Small marginal osteophyte is present involving acetabular. No femoral head osteophytes are noted. No fracture is identified. To the joint spaces preserved. Soft tissue abnormalities are identified. XR/XR hip RT min 2V IMPRESSION: Minimal degenerative change with acetabular roof osteophytes. Electronically signed by: Gokul Bellamy MD 06/21/2025 01:48 PM EST
== END 2025-06-21 12:56 | disposition home or self-care (01) ==
LOC: HO.HMGCX 12:55
PROVIDERS: PCP Internal Medicine; Visit Provider Internal Medicine
DX: M25.551 Pain in right hip (principal); F41.9 Anxiety disorder, unspecified; K21.9 Gastro-esophageal reflux disease without esophagitis; K59.00 Constipation, unspecified; L29.9 Pruritus, unspecified; N95.1 Menopausal and female climacteric states; J45.40 Moderate persistent asthma, uncomplicated; G47.9 Sleep disorder, unspecified; R10.13 Epigastric pain; F41.1 Generalized anxiety disorder; Z88.9 Allergy status to unspecified drugs, medicaments and biological substances; Z79.899 Other long term (current) drug therapy
CPT/HCPCS: 73502; 99212

== ENCOUNTER → 2025-06-21 13:33 | Outpatient (BNV) | payer MEDICARE, SELFPAY | PROVIDERS: PCP Internal Medicine; Visit Provider Radiology Diagnostic Radiology | DX: M16.11 Unilateral primary osteoarthritis, right hip (principal); M25.751 Osteophyte, right hip | CPT/HCPCS: 73502 ==